=== PATIENT | female | born 1960 | race Caucasian/White ===

== ENCOUNTER 2017-08-31 13:57 | Emergency (ER) | payer BC | END 2017-08-31 14:02 | disposition left against medical advice (07) | LOC: ERS 13:57 | DX: Z53.21 Procedure and treatment not carried out due to patient leaving prior to being seen by health care provider (principal) ==

== ENCOUNTER 2019-01-09 05:35 | Outpatient (CLI) | payer OTHER ==
[2019-01-09 14:18] LABS: Bilirubin Negative (Negative); Blood, Urine Small (Negative); Clarity CLEAR (Clear); Glucose, Urine (Dipstick) Negative (Negative); Leukocyte Negative (Negative); Nitrite Negative (Negative); Protein, Urine (Dipstick) 100 mg/dL (Neg-Trace); pH, Urine 6.5 (5.0-9.0)
[2019-01-09 14:25] LABS: Bacteria/HPF None Seen HPF (None Seen); Hyaline Casts/LPF 0-3 HYALINE CAST LPF (0-3 Hyaline); Squamous Epithelial None Seen HPF (0-3); WBC/HPF None Seen HPF (0-3)
--- NOTE | 2019-01-09 15:04 | RAD ---
TWO VIEW CHEST: HISTORY: Preoperative evaluation. COMPARISON: 09/16/2016. FINDINGS: Lung crabtree are clear. Heart size upper normal but stable. Vascular markings normal. Osseous struc tures unremarkable. IMPRESSION: No acute finding or significant interval change. POS: JAMES
--- NOTE | 2019-01-09 20:31 | EKG ---
Test Reason : Blood Pressure : / mmHG Vent. Rate : 045 BPM Atrial Rate : 045 BPM P-R Int : 158 ms QRS Dur : 092 ms QT Int : 450 ms P-R-T Axes : 074 073 055 degrees QTc Int : 389 ms Marked sinus bradycardia Abnormal ECG When compared with ECG of 13-DEC-2016 15:56, Vent. rate has decreased BY [address] Hieu GRAVES ([id number]) on 01/09/2019 8:31:49 PM Referred By: HEIKE Confirmed By:DR. Hieu GRAVES
== END 2019-01-09 05:36 | disposition home or self-care (01) ==
LOC: LABBT 05:35
PROVIDERS: ATTEND Orthopaedic Surgery
DX: Z01.818 Encounter for other preprocedural examination (principal); M17.12 Unilateral primary osteoarthritis, left knee
CPT/HCPCS: 71046; 81001; 87081; 93005; 93010

== ENCOUNTER 2019-01-09 13:15 | Inpatient (IN) | payer OTHER ==
[2019-01-21] MEDS ORDERED: Tranexamic Acid 1,000 MG/10 ML VIAL ONE (07:49)
[2019-01-21] MEDS ORDERED: Sodium Chloride 0.9% 100 ML ONE (08:02)
[2019-01-21] MEDS ORDERED: Midazolam HCl 2 mg/2 ml Vial ONE (08:10)
[2019-01-21] MEDS ORDERED: Fentanyl 100 MCG/2 ML VIAL ONE ×3 (08:10→11:16)
[2019-01-21] MEDS ORDERED: Zolpidem Tartrate 5 MG TAB PO PRN ×2 (08:34→08:50)
[2019-01-21] MEDS ORDERED: Promethazine HCl 25 MG/ML VIAL IM PRN ×3 (08:34→11:13)
[2019-01-21] MEDS ORDERED: HYDROcodone/Acetaminophen 10/325 mg Tablet PO PRN (08:34)
[2019-01-21] MEDS ORDERED: Ropivacaine HCl/PF 250 ML in Premix Bag 1 BAG NERVE BLCK SCH (08:34)
[2019-01-21] MEDS ORDERED: traMADol HCl 50 MG TAB PO PRN (08:34)
[2019-01-21] MEDS ORDERED: Ondansetron PF 4 MG/2 ML Vial IVP PRN ×2 (08:34→08:50)
[2019-01-21] MEDS ORDERED: Acetaminophen 325 MG TAB PO PRN (08:50)
[2019-01-21] MEDS ORDERED: diphenhydrAMINE 25 MG CAP PO PRN (08:50)
[2019-01-21] MEDS ORDERED: ALPRAZolam 0.5 MG TAB PO PRN (08:52)
[2019-01-21] MEDS ORDERED: Ondansetron ODT 8 MG TAB PO PRN (08:52)
[2019-01-21] MEDS ORDERED: NALOXONE HCL SL SCH (09:00)
[2019-01-21] MEDS ORDERED: BUPRENORPHINE HCL SL SCH (09:00)
[2019-01-21] MEDS ORDERED: Ropivacaine 0.5% HCl/PF (150 MG/30 ML VIAL) ONE (11:08)
[2019-01-21] MEDS ORDERED: Ropivacaine 0.2% HCl/PF (40 MG/20 ML VIAL) ONE (11:08)
[2019-01-21] MEDS ORDERED: Ondansetron HCl/PF 4 MG/2 ML Vial IVP PRN (11:13)
[2019-01-21] MEDS ORDERED: Promethazine HCl 25 MG/ML VIAL SLOW IVP PRN (11:13)
--- NOTE | 2019-01-21 11:25 | OP ---
DATE OF PROCEDURE: 01/21/2019 PREOPERATIVE DIAGNOSIS: End-stage tricompartmental osteoarthritis, left knee. POSTOPERATIVE DIAGNOSIS: End-stage tricompartmental osteoarthritis, left knee. OPERATIVE PROCEDURE: Cemented cruciate sparing computer-assisted navigated left total knee arthroplasty. CLIP RIVETER: Chuck Tse PA-C ANESTHESIA: General via LMA augmented with indwelling adductor canal and a single shot anterior sciatic block on the left. COMPONENTS USED: [employer] triathlon size 4 cemented cruciate sparing femoral component with a size 3 cemented primary tibial base plate, a 9 mm polyethylene fixed bearing insert, and a 27 mm patella button. TOURNIQUET TIME: 54 minutes at 300 mmHg. FINDINGS: End-stage severe degenerative tricompartmental disease, [id number] arthrosis, periarticular osteophyte formation, large serous effusion. INPUT: 600 of crystalloid. OUTPUT: 250 mL of clear elsy urine. DRAINS: None. SPECIMENS: None. COMPLICATIONS: None. COUNTS: Correct. INDICATION FOR SURGERY: Jose Daniel is a 58-year-old white female, who has had progressive left knee pain and problem with standing and walking for the last 5 to 7 years. She has failed conservative management and elected to proceed with total knee arthroplasty as definitive treatment of her pain. PROCEDURE IN DETAIL: After informed consent was obtained in the preoperative holding area, the patient was taken to the operative suite where general anesthesia was induced. Once adequate level of general anesthesia was obtained, the patient was positioned and a well-padded tourniquet was placed around the left proximal thigh. The left lower extremity was then prepped and draped in the usual sterile fashion. Prior to exsanguination, a time-out was called and all members of the surgical team agreed upon site, surgeon, and patient. The extremity was then exsanguinated and the tourniquet was raised. A midline longitudinal incision was then made directly over the patella extending 2 fingerbreadths above the superior pole of the patella and 2 fingerbreadths inferior to the inferior patellar pole of the patella. Deeper subcutaneous layers were dissected sharply and local bleeding was controlled with Bovie electrocautery. A quad tendon longitudinal split was then made sharply and a median parapatellar arthrotomy was carried out both sharp and with Bovie electrocautery, carried down to 1 fingerbreadth medial to the tibial tubercle. The knee was then placed into flexion and the patella was everted nicely, and a copious fat pad ectomy was performed allowing for greater exposure of the tibia. The computer-assisted distal femoral fiducial was then placed and pinned firmly, and the distal femoral cutting guide was pinned firmly into place. The oscillating saw was then used to remove the appropriate amount of bone. The 4-in-1 cutting block was then placed on the distal femur and the oscillating saw was used to remove the appropriate amount of bone off the anterior, posterior, and chamfer cuts. After completion of bone cuts, the anterior cruciate ligament was resected sharply and the posterior cruciate ligament retractor was placed and the tibia was subluxed for better exposure. Partial meniscectomies were carried out, and the tibial computer-assisted fiducial was pinned, and the cutting guide was placed. Oscillating saw was then used to remove the bone, with Hohmann retractors used to take care and protect the collateral ligaments. After the tibial resection was performed, a laminar awning spreader was placed in between the freshened bone cuts. The knee placed at 90 degrees and further bilateral meniscectomies were carried out, and the curved osteotome and curettage were used to remove any excess bone spurs in the posterior compartment. The trial femoral component, tibial baseplate were placed with the appropriate polyethylene trial insert with an appropriate polyethylene spacer and patellar button. The knee was taken through full range of motion with flexion and extension from 0 to 90 degrees and patellar broach squarely in the trochlea without any squinting or subluxation noted. The knee was also stable to varus and valgus stressing at 0, 15, 45, and 90 degrees of flexion. The drawer was negative. All trial components were then removed and the keel punch was used to provide the appropriate defect in the tibia with a mallet. The freshened bone cuts were copiously irrigated with pulsatile lavage of about 1.5 L to remove all excess debris. The freshened bone cuts were then dried with suction and lap sponge. The knee was placed in flexion and retractors were placed to provide access to all bone cuts. Tobramycin-impregnated methyl methacrylate cement was then placed on the freshened bone cuts and implants which were malleted firmly into place. Curettage and Emden elevators were used to remove any excess bone cement. The knee was placed into full extension and the patellar button was placed under compression, and the cement was allowed to cure. Once completed, the components were again taken through full range of motion and copious irrigation of the knee was carried out with another liter of normal saline. All components were inspected fully with full range of motion and varus and valgus stressing. There was no laxity noted and full extension was observed clinically. Primary closure was accomplished with #2 interrupted Vicryl stitch of the arthrotomy defect. This was oversewn with a #2 running Quill barbed stitch. The subcutaneous layer was then closed with a running 0 barbed Monocryl stitch and skin closure accomplished with a running subcuticular 3-0 Monocryl barbed Quill stitch and augmented with cement on the skin. Tourniquet was lowered. Good spontaneous return of distal pulses was noted clinically and a sterile dressing was applied to the incision. The procedure was terminated without any complications. The patient was awakened in the operative suite and taken to the recovery room in stable condition. Job ID: [id number]
[2019-01-21] MEDS ORDERED: Ketorolac Tromethamine 30 MG/ML VIAL IVP SCH (12:00)
[2019-01-21] MEDS ORDERED: PROPOFOL 200 MG/20 ML VIAL ONE (12:12)
[2019-01-21] MEDS ORDERED: Dexamethasone 20 MG/5 ML VIAL ONE (12:12)
[2019-01-21] MEDS ORDERED: Ondansetron PF 4 MG/2 ML Vial ONE (12:12)
[2019-01-21] MEDS ORDERED: Lidocaine 1% PF 5 ML VIAL ONE (12:12)
--- NOTE | 2019-01-21 12:32 | RAD ---
LEFT KNEE TWO VIEWS: HISTORY: Total knee arthroplasty, postop. FINDINGS: The recent postop changes of total knee arthroplasty in good position and alignment. Soft tissue air is present. POS: OFF
[2019-01-21] MEDS: Aspirin 81 mg Enteric Coated Tablet PO SCH ×2 (15:07→20:03)
[2019-01-21] MEDS: Ketorolac Tromethamine 30 MG/ML VIAL IVP SCH ×2 (15:15→20:03)
--- NOTE | 2019-01-21 16:22 | CON ---
DATE OF CONSULTATION: 01/21/2019 CHIEF COMPLAINT: Medical management. HISTORY OF PRESENT ILLNESS: Ms. Galloway is a pleasant 58-year-old lady, who was seen at [facility] on January 21, 2019, for management of medical comorbidities. She underwent left total knee arthroplasty today. She denies any chest pain or shortness of breath. She denies any fevers or chills. She reports left knee pain that is improving with pain medications. She denies any fevers. She denies any headaches. REVIEW OF SYSTEMS: All other systems reviewed and found to be negative. PAST MEDICAL HISTORY: Chronic obstructive pulmonary disease and hypertension. PSYCHIATRIC HISTORY: Anxiety and depression. PAST SURGICAL HISTORY: Right arm surgery, left femur replacement, and right total knee replacement. SOCIAL HISTORY: The patient smokes half a pack of cigarettes a day. She denies alcohol use or recreational drug use. FAMILY HISTORY: No family history of premature coronary artery disease. ALLERGIES: SOMA. CURRENT MEDICATIONS: 1. Aspirin/caffeine one packet every 6 hours as needed. 2. Zofran 8 mg every 6 hours as needed. 3. Xanax 0.5 mg daily as needed. 4. Suboxone one film sublingually two times a day. 5. Escitalopram 20 mg daily. 6. Lisinopril 40 mg daily. 7. Ferrous sulfate 325 mg 2 times a day. 8. Protonix 40 mg daily. PHYSICAL EXAMINATION: GENERAL: On examination, Ms. Galloway is awake and alert, not in acute distress. VITAL SIGNS: Blood pressure is 162/83, pulse is 51, respiratory rate 16, and oxygen saturation 96% on room air. She is afebrile. EYES: No scleral icterus. No conjunctival pallor. ENT: Moist mucosal membranes. No oropharyngeal erythema or exudates. NECK: Supple, nontender, trachea is midline. RESPIRATORY: Accessory muscles of breathing are not active. Chest wall movements are symmetric bilaterally. LUNGS: Clear to auscultation without wheeze, rhonchi, or crepitations. CARDIOVASCULAR: S1 and S2 are heard, regular. Peripheral pulses palpable. No carotid bruit. No pericardial rub. ABDOMEN: Soft, nontender, bowel sounds heard. NEUROLOGIC: Cranial nerves II through XII are intact. MUSCULOSKELETAL: Status post left knee surgery. The patient is able to move all four extremities. SKIN: No rashes or subcutaneous nodules. LYMPHATIC: No cervical lymphadenopathy. PSYCHIATRIC: Normal mood. Normal affect. The patient is oriented to person, place, and time. LABORATORY DATA: Ms. Galloway's labs and investigations were reviewed. On January 14, she had leukopenia with 3900 white cells, normal hemoglobin, decreased platelet count of 124,000, normal sodium, elevated potassium of 5.2, normal creatinine, and INR of 1.1. Urinalysis was negative for nitrite and leukocyte esterase on January 09, 2019. ASSESSMENT AND PLAN: Ms. Galloway is a pleasant 58-year-old lady, who was seen at [facility] for medical management following left total knee arthroplasty. Her problem list includes: 1. Hypertension: We will resume lisinopril. We will monitor vital signs and titrate antihypertensives as needed. We will also add p.r.n. hydralazine for blood pressure spikes. 2. Chronic obstructive pulmonary disease: Appears to be stable. 3. Depression: Mild, stable, we will continue Lexapro. 4. Check hemogram in a.m. to look for any abnormalities, given the recent abnormalities on CBC of January 14, 2019. Many thanks for allowing me to participate in your patient's care. Please feel free to contact me with any questions or concerns. LEVEL OF RISK: Moderate. LEVEL OF COMPLEXITY: Moderate. Job ID: [id number]
[2019-01-21] MEDS: CEFAZOLIN 2 GM in Premix Bag 1 BAG IVPB SCH ×2 (16:31→23:36)
[2019-01-21] MEDS ORDERED: Ferrous Sulfate 325 MG TAB PO SCH (17:00)
[2019-01-21] MEDS: Lisinopril 20 MG TAB PO SCH (18:19)
[2019-01-21] MEDS: Sodium Chloride 0.9% 1,000 ML IV SCH ×2 (18:19→20:04)
[2019-01-21] MEDS: Escitalopram Oxalate 20 mg Tablet PO SCH (18:19)
[2019-01-21] MEDS: traMADol HCl 50 MG TAB PO PRN (20:04)
[2019-01-21] MEDS: hydrALAZINE 20 MG/ML VIAL SLOW IVP PRN (22:16)
[2019-01-22] MEDS: HYDROcodone/Acetaminophen 10/325 mg Tablet PO PRN ×5 (00:35→17:18)
[2019-01-22] MEDS: Ketorolac Tromethamine 30 MG/ML VIAL IVP SCH ×4 (02:58→20:18)
[2019-01-22] MEDS: traMADol HCl 50 MG TAB PO PRN ×2 (03:49→10:40)
[2019-01-22] MEDS: Sodium Chloride 0.9% 1,000 ML IV SCH ×2 (04:44→16:00)
[2019-01-22] MEDS: hydrALAZINE 20 MG/ML VIAL SLOW IVP PRN ×3 (04:48→23:44)
[2019-01-22 06:06] LABS: Hemoglobin 12.5 g/dL (12.0-16.0); Mean Corpuscular HGB CONC 32.5 g/dL (32.0-36.0); Mean Corpuscular Hemoglobin 31.7 pg (27.0-31.0); Mean Corpuscular Volume 97.5 fL (78.0-98.0); Mean Platelet Volume 8.9 fL (7.4-10.4); Platelet Count 110 thou/uL (130-400); RBC Distribution Width 12.9 % (11.5-14.5); Red Blood Cell (RBC) Count 3.94 mill/uL (4.20-5.40); White Blood Cell (WBC) Count 4.4 thou/uL (4.8-10.8)
[2019-01-22] MEDS: Aspirin 81 mg Enteric Coated Tablet PO SCH ×2 (07:44→20:18)
[2019-01-22] MEDS: Escitalopram Oxalate 20 mg Tablet PO SCH (07:44)
[2019-01-22] MEDS: Senokot S 8.6-50 MG TAB PO SCH ×2 (07:45→20:18)
[2019-01-22] MEDS: Multivitamin W/ Minerals 1 TAB PO SCH (07:46)
[2019-01-22] MEDS: Ferrous Gluconate 324 MG TAB PO SCH ×2 (07:46→20:18)
[2019-01-22] MEDS: Lisinopril 20 MG TAB PO SCH (07:46)
[2019-01-22] MEDS: Amlodipine 5 MG TAB PO SCH (09:09)
[2019-01-22 11:46] VITALS: BMI 21.9
--- NOTE | 2019-01-22 12:43 | PRG ---
DATE OF SERVICE: 01/22/2019 SUBJECTIVE: Jose Daniel is a 58-year-old white female who is postop day one from left total knee arthroplasty. She is doing very well. She does have some complaints about discomfort overnight. We will be addressing this with her block. She may require a bolus. OBJECTIVE: VITAL SIGNS: Temperature 98.5, pulse 52, respiratory rate 16, blood pressure 185/90. GENERAL: She is alert and oriented to person, time, and situation, grossly nonfocal. No apparent distress. EXTREMITIES: There is no strikethrough of the incision and she is neurovascular intact in both lower extremities. LABORATORY DATA: Hemoglobin and hematocrit . IMPRESSION: A 58-year-old female, postoperative day one, left total knee arthroplasty, doing well. PLAN: Continue current care. Recheck tomorrow. Job ID: [id number]
[2019-01-22] MEDS: Fentanyl 100 MCG/2 ML VIAL IV PRN ×2 (13:50→16:50)
[2019-01-22] MEDS ORDERED: Promethazine HCl 25 MG/ML VIAL IM PRN (17:32)
[2019-01-22] MEDS ORDERED: diphenhydrAMINE 25 MG CAP PO PRN (17:32)
[2019-01-22] MEDS ORDERED: Zolpidem Tartrate 5 MG TAB PO PRN (17:32)
[2019-01-22] MEDS ORDERED: Ondansetron PF 4 MG/2 ML Vial IVP PRN (17:32)
[2019-01-22] MEDS ORDERED: Naloxone HCl 0.4 mg/ml Vial IV PRN (17:32)
[2019-01-22] MEDS ORDERED: diphenhydrAMINE 50 MG/ML VIAL IM PRN (17:32)
[2019-01-22] MEDS ORDERED: Ketorolac Tromethamine 30 MG/ML VIAL IVP PRN (17:32)
[2019-01-22] MEDS ORDERED: diphenhydrAMINE 50 MG/ML VIAL IVP PRN (17:32)
[2019-01-22] MEDS ORDERED: Communication Order-Pharmacy FS SCH (17:45)
[2019-01-22] MEDS ORDERED: cloNIDine 0.1 MG TAB PO SCH (18:15)
[2019-01-22] MEDS: fentaNYL Citrate/PF 2,000 MCG in Sodium Chloride 0.9% 60 ML IV PRN (18:17)
--- NOTE | 2019-01-22 18:42 | PDOC.PN ---
- Subjective Encounter Start Date: 01/22/19 Encounter Start Time: 08:00 Pt seen for followup re: hypertension. feels well, c/o on and off left knee pain. - Objective MAR Reviewed: Yes Vital Signs & Weight: Vital Signs (12 hours) Temp Pulse Resp BP BP Pulse Ox 01/22/19 18:16 193/84 H 01/22/19 16:08 97.5 F L 59 L 16 177/82 H 99 01/22/19 14:37 177/82 H 01/22/19 13:31 54 L 186/88 H 01/22/19 12:49 98.6 F 54 L 16 175/94 H 97 01/22/19 09:09 52 L 185/90 H 01/22/19 08:00 98 01/22/19 07:46 185/90 H 01/22/19 07:23 98.5 F 59 L 16 180/91 H 98 Weight Admit Weight 128 lb Weight 128 lb I&O: 01/21/19 01/22/19 01/23/19 06:59 06:59 06:59 Intake Total 2310 Output Total 550 Balance 1760 Result Diagrams: 01/22/19 05:15 Additional Labs: Labs reviewed by me Phys Exam - Physical Examination Constitutional: NAD HEENT: moist MMs Neck: supple Respiratory: clear to auscultation bilateral Cardiovascular: RRR Gastrointestinal: soft s/p L knee surgery Neurological: moves all 4 limbs Psychiatric: normal affect Dx/Plan (1) HTN (hypertension) Code(s): I10 - ESSENTIAL (PRIMARY) HYPERTENSION Status: Chronic (2) COPD (chronic obstructive pulmonary disease) Status: Chronic Comment: stable (3) Depression Code(s): F32.9 - MAJOR DEPRESSIVE DISORDER, SINGLE EPISODE, UNSPECIFIED Status : Chronic Comment: mild, stable (4) Tobacco abuse Code(s): Z72.0 - TOBACCO USE Status: Chronic Comment: start nicotine patch - Plan * . Review of Systems - Review of Systems Respiratory: negative: Cough, Shortness of Breath, SOB with Excertion, Pleuritic Pain, Wheezing Cardiovascular: negative: chest pain, palpitations, orthopnea, paroxysmal nocturnal dyspnea, edema, light headedness Musculoskeletal: Other (left knee pain) - Medications/Allergies Allergies/Adverse Reactions: Allergies Allergy/AdvReac Type Severity Reaction Status Date / Time carisoprodol [From Soma] Allergy Verified 01/09/19 13:07 Medications: Current Medications Acetaminophen (Tylenol) 650 mg PO Q4H PRN PRN Reason: Headache/Fever Amlodipine Besylate (Norvasc) 5 mg PO DAILY [facility] Last Admin: 01/22/19 09:09 Dose: 5 mg Aspirin (Ecotrin) 81 mg PO BID [facility] Last Admin: 01/22/19 07:44 Dose: 81 mg Clonidine (Catapres) 0.1 mg PO NOW [facility] Stop: 01/22/19 20:15 Last Admin: 01/22/19 18:16 Dose: 0.1 mg Diphenhydramine HCl (Benadryl) 25 mg IVP Q3H PRN PRN Reason: Itching Diphenhydramine HCl (Benadryl) 25 mg PO Q3H PRN PRN Reason: Itching Diphenhydramine HCl (Benadryl) 25 mg IM Q3H PRN PRN Reason: Itching Escitalopram Oxalate (Lexapro) 20 mg PO DAILY [facility] Last Admin: 01/22/19 07:44 Dose: 20 mg Ferrous Gluconate (Fergon) 324 mg PO BID [facility] Last Admin: 01/22/19 07:46 Dose: 324 mg Hydralazine HCl (Apresoline) 10 mg SLOW IVP Q6H PRN PRN Reason: SBP Greater Than 170 Last Admin: 01/22/19 13:31 Dose: 10 mg Ropivacaine 250 ml/ Device 250 mls @ 0 mls/hr NERVE BLCK INF [facility] Last Admin: 01/22/19 14:29 Dose: 250 mls Sodium Chloride (Normal Saline 0.9%) 1,000 mls @ 100 mls/hr IV .Q10H [facility] Last Admin: 01/22/19 16:00 Dose: Not Given Fentanyl Citrate 2,000 mcg/ (Sodium Chloride) 100 mls @ 0 mls/hr IV INF PRN PRN Reason: Pain Last Admin: 01/22/19 18:17 Dose: 100 mls Iron/Minerals/Multivitamins (Theragran M) 1 tab PO DAILY [facility] Last Admin: 01/22/19 07:46 Dose: 1 tab Ketorolac Tromethamine (Toradol) 30 mg IVP 0300,0900,1500,2100 [facility] Stop: 01/23/19 09:01 Last Admin: 01/22/19 15:48 Dose: 30 mg Ketorolac Tromethamine (Toradol) 30 mg IVP Q6H PRN PRN Reason: Moderate Pain (4-6) Stop: 01/25/19 17:33 Lisinopril (Zestril) 40 mg PO DAILY [facility] Last Admin: 01/22/19 07:46 Dose: 40 mg Naloxone HCl (Narcan) 0.2 mg IV Q5MIN PRN PRN Reason: Opiate Reversal Ondansetron HCl (Zofran Odt) 8 mg PO Q6HR PRN PRN Reason: Nausea/Vomiting Ondansetron HCl (Zofran) 4 mg IVP Q6H PRN PRN Reason: Nausea/Vomiting Pantoprazole Sodium (Protonix) 40 mg PO DAILY [facility] Last Admin: 01/22/19 07:44 Dose: 40 mg Promethazine HCl (Phenergan) 12.5 mg IM Q4H PRN PRN Reason: Nausea/Vomiting Senna/Docusate Sodium (Senokot S) 2 tab PO BID [facility] Last Admin: 01/22/19 07:45 Dose: 2 tab Sodium Chloride (Flush - Normal Saline) 10 ml IVF PRN PRN PRN Reason: Saline Flush Last Admin: 01/22/19 15:50 Dose: 10 ml Zolpidem Tartrate (Ambien) 5 mg PO HSPRN PRN PRN Reason: Insomnia
[2019-01-22] MEDS: Nicotine 14 MG PATCH TD SCH (20:18)
[2019-01-23] MEDS ORDERED: hydrALAZINE 20 MG/ML VIAL SLOW IVP SCH (01:00)
[2019-01-23] MEDS: Sodium Chloride 0.9% 1,000 ML IV SCH ×4 (01:13→23:44)
[2019-01-23] MEDS: Ketorolac Tromethamine 30 MG/ML VIAL IVP SCH ×2 (02:55→09:48)
[2019-01-23 04:25] LABS: Hemoglobin 13.1 g/dL (12.0-16.0); Mean Corpuscular Hemoglobin 32.3 pg (27.0-31.0); Mean Corpuscular Volume 97.9 fL (78.0-98.0); Mean Platelet Volume 9.5 fL (7.4-10.4); Platelet Count 101 thou/uL (130-400); Red Blood Cell (RBC) Count 4.05 mill/uL (4.20-5.40); White Blood Cell (WBC) Count 4.9 thou/uL (4.8-10.8)
[2019-01-23] MEDS: cloNIDine 0.1 MG TAB PO PRN (05:01)
[2019-01-23] MEDS ORDERED: Morphine 4 MG/ML VIAL SLOW IVP SCH (05:30)
[2019-01-23] MEDS ORDERED: Nicotine 21 MG PATCH TD SCH (09:00)
[2019-01-23] MEDS: Senokot S 8.6-50 MG TAB PO SCH ×2 (09:49→20:16)
[2019-01-23] MEDS: Aspirin 81 mg Enteric Coated Tablet PO SCH ×2 (09:49→20:19)
[2019-01-23] MEDS: Escitalopram Oxalate 20 mg Tablet PO SCH (09:49)
[2019-01-23] MEDS: Multivitamin W/ Minerals 1 TAB PO SCH (09:50)
[2019-01-23] MEDS: Lisinopril 20 MG TAB PO SCH (09:50)
[2019-01-23] MEDS: Amlodipine 5 MG TAB PO SCH (09:51)
--- NOTE | 2019-01-23 09:51 | PRG ---
DATE OF SERVICE: 01/23/2019 SUBJECTIVE: Jose Daniel is a 58-year-old white female, postop day #2, left total knee arthroplasty. Unfortunately, she had a PLANT MANAGER placed yesterday evening around 6:00 p.m. for her pain control. Today, she feels a little better. She is able to get up and move with better pain control. OBJECTIVE: VITAL SIGNS: Temperature 97.9, pulse 60, respiratory rate 16 and nonlabored, and blood pressure is 143/86. GENERAL: She is alert and oriented to person, place, time, and situation. NEUROLOGIC: Grossly nonfocal. Incision is clean, closed without any erythema. There is no strikethrough. She is neurovascularly intact in the involved extremity. LABORATORY DATA: Hemoglobin and hematocrit of 13.1 and 39.6. IMPRESSION: A 58-year-old female, postop day #2, left total knee arthroplasty. Pain syndrome, but controlled currently. PLAN: Continue current care. We will probably discontinue the PLANT MANAGER tomorrow morning. Plan for home discharge. Job ID: [id number]
[2019-01-23] MEDS: Ferrous Gluconate 324 MG TAB PO SCH ×2 (09:52→20:19)
[2019-01-23] MEDS: Acetaminophen 500 MG TAB PO SCH ×3 (10:38→23:47)
--- NOTE | 2019-01-23 15:41 | PDOC.PN ---
- Subjective Encounter Start Date: 01/23/19 Encounter Start Time: 08:00 Pt seen for followup re: hypertension. c/o left knee pain. No fevers. - Objective MAR Reviewed: Yes Vital Signs & Weight: Vital Signs (12 hours) Temp Pulse Resp BP BP BP Pulse Ox 01/23/19 11:41 98.1 F 52 L 16 163/88 H 96 01/23/19 09:51 60 143/76 H 01/23/19 09:50 143/86 H 01/23/19 07:32 97.9 F 60 16 143/86 H 100 01/23/19 07:27 96 01/23/19 06:33 66 163/79 H 01/23/19 05:01 174/84 H 01/23/19 04:00 98.5 F 61 16 190/93 H 96 Weight Admit Weight 128 lb Weight 128 lb I&O: 01/22/19 01/23/19 01/24/19 06:59 06:59 06:59 Intake Total 2310 1035 930 Output Total 550 Balance 1760 1035 930 Result Diagrams: 01/23/19 04:09 Additional Labs: labs reviewed by me Phys Exam - Physical Examination Constitutional: NAD HEENT: moist MMs Neck: supple Respiratory: clear to auscultation bilateral Cardiovascular: RRR Gastrointestinal: soft L knee s/p surgery Neurological: moves all 4 limbs Psychiatric: normal affect Dx/Plan (1) HTN (hypertension) Code(s): I10 - ESSENTIAL (PRIMARY) HYPERTENSION Status: Chronic Comment: BP high at times, ? secondary to pain (2) COPD (chronic obstructive pulmonary disease) Status: Chronic Comment: stable (3) Depression Code(s): F32.9 - MAJOR DEPRESSIVE DISORDER, SINGLE EPISODE, UNSPECIFIED Status : Chronic Comment: stable (4) Tobacco abuse Code(s): Z72.0 - TOBACCO USE Status: Chronic Comment: on nicotine patch - Plan * . Review of Systems - Review of Systems Cardiovascular: negative: chest pain, palpitations, orthopnea, paroxysmal nocturnal dyspnea, edema, light headedness Gastrointestinal: negative: Nausea, Vomiting, Abdominal Pain, Diarrhea, Constipation, Melena, Hematochezia Musculoskeletal: Other (knee pain) - Medications/Allergies Allergies/Adverse Reactions: Allergies Allergy/AdvReac Type Severity Reaction Status Date / Time carisoprodol [From Soma] Allergy Verified 01/09/19 13:07 Medications: Current Medications Acetaminophen (Tylenol) 1,000 mg PO Q6H [facility] Stop: 01/24/19 10:01 Last Admin: 01/23/19 10:38 Dose: 1,000 mg Acetaminophen (Tylenol) 650 mg PO Q4H PRN PRN Reason: Headache/Fever Amlodipine Besylate (Norvasc) 5 mg PO DAILY [facility] Last Admin: 01/23/19 09:51 Dose: 5 mg Aspirin (Ecotrin) 81 mg PO BID [facility] Last Admin: 01/23/19 09:49 Dose: 81 mg Clonidine (Catapres) 0.1 mg PO Q4H PRN PRN Reason: BP> 170/100 Last Admin: 01/23/19 05:01 Dose: 0.1 mg Diphenhydramine HCl (Benadryl) 25 mg IVP Q3H PRN PRN Reason: Itching Diphenhydramine HCl (Benadryl) 25 mg PO Q3H PRN PRN Reason: Itching Diphenhydramine HCl (Benadryl) 25 mg IM Q3H PRN PRN Reason: Itching Escitalopram Oxalate (Lexapro) 20 mg PO DAILY [facility] Last Admin: 01/23/19 09:49 Dose: 20 mg Ferrous Gluconate (Fergon) 324 mg PO BID [facility] Last Admin: 01/23/19 09:52 Dose: Not Given Hydralazine HCl (Apresoline) 10 mg SLOW IVP Q6H PRN PRN Reason: SBP Greater Than 170 Last Admin: 01/22/19 23:44 Dose: 10 mg Ropivacaine 250 ml/ Device 250 mls @ 0 mls/hr NERVE BLCK INF [facility] Last Admin: 01/22/19 14:29 Dose: 250 mls Sodium Chloride (Normal Saline 0.9%) 1,000 mls @ 100 mls/hr IV .Q10H [facility] Last Admin: 01/23/19 01:13 Dose: Not Given Fentanyl Citrate 2,000 mcg/ (Sodium Chloride) 100 mls @ 0 mls/hr IV INF PRN PRN Reason: Pain Last Admin: 01/22/19 18:17 Dose: 100 mls Iron/Minerals/Multivitamins (Theragran M) 1 tab PO DAILY [facility] Last Admin: 01/23/19 09:50 Dose: 1 tab Ketorolac Tromethamine (Toradol) 30 mg IVP Q6H PRN PRN Reason: Moderate Pain (4-6) Stop: 01/25/19 17:33 Lisinopril (Zestril) 40 mg PO DAILY [facility] Last Admin: 01/23/19 09:50 Dose: 40 mg Naloxone HCl (Narcan) 0.2 mg IV Q5MIN PRN PRN Reason: Opiate Reversal Nicotine (Nicoderm Patch) 14 mg TD Q24HR [facility] Last Admin: 01/22/19 20:18 Dose: 14 mg Ondansetron HCl (Zofran Odt) 8 mg PO Q6HR PRN PRN Reason: Nausea/Vomiting Ondansetron HCl (Zofran) 4 mg IVP Q6H PRN PRN Reason: Nausea/Vomiting Pantoprazole Sodium (Protonix) 40 mg PO DAILY [facility] Last Admin: 01/23/19 09:50 Dose: 40 mg Promethazine HCl (Phenergan) 12.5 mg IM Q4H PRN PRN Reason: Nausea/Vomiting Senna/Docusate Sodium (Senokot S) 2 tab PO BID [facility] Last Admin: 01/23/19 09:49 Dose: 2 tab Sodium Chloride (Flush - Normal Saline) 10 ml IVF PRN PRN PRN Reason: Saline Flush Last Admin: 01/22/19 15:50 Dose: 10 ml Zolpidem Tartrate (Ambien) 5 mg PO HSPRN PRN PRN Reason: Insomnia
[2019-01-23] MEDS: fentaNYL Citrate/PF 2,000 MCG in Sodium Chloride 0.9% 60 ML IV PRN (16:54)
[2019-01-23] MEDS ORDERED: Bupivacaine/Epinephrine 0.5% 10 ML VIAL FS SCH (17:30)
[2019-01-23] MEDS ORDERED: Acetaminophen 500 MG TAB PO SCH (18:00)
[2019-01-23] MEDS: Nicotine 14 MG PATCH TD SCH (20:19)
[2019-01-24] MEDS: cloNIDine 0.1 MG TAB PO PRN ×3 (04:00→22:05)
[2019-01-24] MEDS: Acetaminophen 500 MG TAB PO SCH ×3 (05:29→15:07)
[2019-01-24] MEDS ORDERED: HYDROcodone/Acetaminophen 10/325 mg Tablet PO PRN (09:10)
[2019-01-24] MEDS: HYDROcodone/Acetaminophen 10/325 mg Tablet PO PRN ×4 (09:17→21:56)
[2019-01-24] MEDS: Multivitamin W/ Minerals 1 TAB PO SCH (09:18)
[2019-01-24] MEDS: Senokot S 8.6-50 MG TAB PO SCH ×2 (09:19→21:55)
[2019-01-24] MEDS: Lisinopril 20 MG TAB PO SCH (09:19)
[2019-01-24] MEDS: Aspirin 81 mg Enteric Coated Tablet PO SCH ×2 (09:19→21:55)
[2019-01-24] MEDS: Ferrous Gluconate 324 MG TAB PO SCH ×2 (09:19→21:55)
[2019-01-24] MEDS: Amlodipine 5 MG TAB PO SCH (09:19)
[2019-01-24] MEDS: Escitalopram Oxalate 20 mg Tablet PO SCH (09:20)
[2019-01-24] MEDS: Sodium Chloride 0.9% 1,000 ML IV SCH ×2 (09:23→18:22)
[2019-01-24] MEDS ORDERED: ALPRAZolam 0.5 MG TAB PO SCH (14:15)
[2019-01-24] MEDS: traMADol HCl 50 MG TAB PO PRN ×2 (16:58→23:30)
[2019-01-24] MEDS: Cyclobenzaprine 10 MG TAB PO PRN (18:18)
[2019-01-24] MEDS: Nicotine 14 MG PATCH TD SCH (18:19)
[2019-01-24] MEDS ORDERED: Morphine 2 MG/ML SYRINGE SLOW IVP PRN (23:20)
[2019-01-24] MEDS: Morphine 2 MG/ML SYRINGE IM PRN (23:24)
[2019-01-24] MEDS ORDERED: Acetaminophen 325 MG TAB PO PRN (23:59)
[2019-01-25] MEDS: HYDROcodone/Acetaminophen 10/325 mg Tablet PO PRN ×4 (02:09→13:27)
[2019-01-25] MEDS: Morphine 2 MG/ML SYRINGE IM PRN (03:28)
[2019-01-25] MEDS: Sodium Chloride 0.9% 1,000 ML IV SCH (05:45)
[2019-01-25] MEDS: cloNIDine 0.1 MG TAB PO PRN ×2 (05:46→15:15)
--- NOTE | 2019-01-25 08:48 | PRG ---
DATE OF SERVICE: 01/24/2019 SUBJECTIVE: Jose Daniel is a 58-year-old female, who is postop day 3 from a left total knee arthroplasty. She has had some pain flares requiring parental pain medication and she has recently been struggling with pain. Baseline is around 6 or 7. OBJECTIVE: VITAL SIGNS: She is afebrile. NEUROLOGIC: She is alert, oriented to person, place, time, and situation, grossly nonfocal, responsive, and appropriate with examiner. She appears anxious. Her incision is clean. No strike through. There is almost no bruising on the incision in the nicolette-incisional area and she is neurovascularly intact in the extremity. IMPRESSION: 1. A 58-year-old female, postop day 3, left total knee arthroplasty. 2. Dysesthesias and pain flare secondary to surgery. PLAN: Continue care. Parental pain medicines as needed, but this will delay discharge. Job ID: [id number]
[2019-01-25] MEDS: Escitalopram Oxalate 20 mg Tablet PO SCH (09:25)
[2019-01-25] MEDS: Lisinopril 20 MG TAB PO SCH (09:26)
[2019-01-25] MEDS: Multivitamin W/ Minerals 1 TAB PO SCH (09:26)
[2019-01-25] MEDS: Ferrous Gluconate 324 MG TAB PO SCH (09:26)
[2019-01-25] MEDS: Amlodipine 5 MG TAB PO SCH (09:26)
[2019-01-25] MEDS: Aspirin 81 mg Enteric Coated Tablet PO SCH (09:27)
[2019-01-25] MEDS: Senokot S 8.6-50 MG TAB PO SCH (09:28)
[2019-01-25 12:05] VITALS: TEMP 97.7
[2019-01-25] MEDS: Cyclobenzaprine 10 MG TAB PO PRN (12:09)
[2019-01-25] MEDS: traMADol HCl 50 MG TAB PO PRN (12:09)
[2019-01-25 15:16] VITALS: BP 172/84
== END 2019-01-25 16:10 | disposition home or self-care (01) | DRG 470 ==
LOC: SURG A 01-21 06:57 → SJJU 01-21 13:06
PROVIDERS: ADMIT Orthopaedic Surgery; ATTEND Orthopaedic Surgery
PROC: 0SRD0JZ Replacement of Left Knee Joint with Synthetic Substitute, Open Approach (ICD-10-PCS; principal; 2019-01-21)
DX: M17.12 Unilateral primary osteoarthritis, left knee (principal); F17.210 Nicotine dependence, cigarettes, uncomplicated; J44.9 Chronic obstructive pulmonary disease, unspecified; I10 Essential (primary) hypertension; F41.9 Anxiety disorder, unspecified; F32.9 Major depressive disorder, single episode, unspecified; R20.8 Other disturbances of skin sensation; Z79.82 Long term (current) use of aspirin; Z79.899 Other long term (current) drug therapy
CPT/HCPCS: 36415; 85027; 94640; C1713; C1776; J0360; J1100; J1885; J2001; J2250; J2270; J2405; J2704; J2795; J3010; J3370; J7050; J7620

== ENCOUNTER 2019-01-14 14:39 | Outpatient (CLI) | payer OTHER ==
[2019-01-14 15:15] LABS: #Eosinphils 0.1 thou/uL (0.0-0.7); #Lymphocytes 1.1 thou/uL (1.20-3.40); #Monocytes 0.3 thou/uL (0.11-0.59); #Neutrophils 2.4 thou/uL (1.40-6.50); %Basophils 0.7 % (0.0-1.0); %Eosinophils 2.9 % (0.0-10.0); %Lymphocytes 26.8 % (21.0-51.0); %Monocytes 7.6 % (0.0-10.0); Hemoglobin 13.4 g/dL (12.0-16.0); Mean Corpuscular HGB CONC 32.8 g/dL (32.0-36.0); Mean Corpuscular Hemoglobin 31.3 pg (27.0-31.0); Mean Corpuscular Volume 95.4 fL (78.0-98.0); Mean Platelet Volume 8.8 fL (7.4-10.4); Platelet Count 124 thou/uL (130-400); White Blood Cell (WBC) Count 3.9 thou/uL (4.8-10.8)
[2019-01-14 15:22] LABS: INR-International Normal Ratio 1.1; PTT 39.7 SEC (22.9-36.1); Prothrombin Time 14.7 SEC (12.0-14.7)
[2019-01-14 15:39] LABS: Anion Gap 16 mmol/L (10-20); BUN (Urea Nitrogen) 33 mg/dL (9.8-20.1); Calc. Creatinine Clearance 0 mL/min (70-130); Calcium 9.3 mg/dL (7.8-10.44); Carbon Dioxide 21 mmol/L (22-29); Chloride 108 mmol/L (98-107); Estimated GFR-MDRD 60; Glucose 88 mg/dL (70-105); Potassium 5.2 mmol/L (3.5-5.1); Sodium 140 mmol/L (136-145)
== END 2019-01-14 14:40 | disposition home or self-care (01) ==
LOC: LABBT 14:39
PROVIDERS: ATTEND Orthopaedic Surgery
DX: Z01.812 Encounter for preprocedural laboratory examination (principal); M17.12 Unilateral primary osteoarthritis, left knee
CPT/HCPCS: 80048; 85025; 85610; 85730; 86850; 86900; 86901

== ENCOUNTER 2019-01-29 18:40 | Observation (INO) | payer OTHER ==
[2019-01-29 19:08] LABS: #Basophils 0.1 thou/uL (0.0-0.2); #Eosinphils 0.2 thou/uL (0.0-0.7); #Lymphocytes 1.1 thou/uL (1.20-3.40); #Monocytes 0.4 thou/uL (0.11-0.59); #Neutrophils 1.8 thou/uL (1.40-6.50); %Basophils 1.5 % (0.0-1.0); %Eosinophils 5.5 % (0.0-10.0); %Lymphocytes 31.2 % (21.0-51.0); %Neutrophils 50.8 % (42.0-75.0); Hemoglobin 10.8 g/dL (12.0-16.0); Mean Corpuscular HGB CONC 33.1 g/dL (32.0-36.0); Mean Corpuscular Hemoglobin 32.7 pg (27.0-31.0); Mean Corpuscular Volume 98.9 fL (78.0-98.0); Mean Platelet Volume 8.6 fL (7.4-10.4); Platelet Count 110 thou/uL (130-400); RBC Distribution Width 13.5 % (11.5-14.5); White Blood Cell (WBC) Count 3.6 thou/uL (4.8-10.8)
--- NOTE | 2019-01-29 19:15 | RAD ---
CHEST TWO VIEWS: 01/29/19 HISTORY: Dyspnea. COMPARISON: 01/09/19. FINDINGS: Enlarged cardiac silhouette. Prominent pulmonary vessels. Patchy interstitial opacities, without cons olidation or mass. Lungs are hyperinflated. No pleural effusion or pneumothorax. IMPRESSION: Congestive heart failure. POS: PPP
[2019-01-29 19:27] LABS: ALT (SGPT) 56 U/L (8-55); AST (SGOT) 74 U/L (5-34); Albumin 3.2 g/dL (3.5-5.0); Alkaline Phosphatase 206 U/L (40-150); Anion Gap 11 mmol/L (10-20); BUN (Urea Nitrogen) 17 mg/dL (9.8-20.1); Bilirubin, Total 0.4 mg/dL (0.2-1.2); Calc. Creatinine Clearance 0 mL/min (70-130); Calcium 8.9 mg/dL (7.8-10.44); Carbon Dioxide 28 mmol/L (22-29); Chloride 107 mmol/L (98-107); Estimated GFR-MDRD 50; Globulin 3.2 g/dL (2.4-3.5); Glucose 78 mg/dL (70-105); Potassium 5.7 mmol/L (3.5-5.1); Protein, Total 6.4 g/dL (6.0-8.3); Sodium 140 mmol/L (136-145)
[2019-01-29] MEDS ORDERED: Acetaminophen 500 MG TAB ONE (21:46)
[2019-01-29 22:10] LABS: Troponin I 0.011 ng/mL (< 0.028)
[2019-01-29] MEDS ORDERED: Ondansetron ODT 4 MG TAB SL PRN (23:39)
[2019-01-29] MEDS ORDERED: Acetaminophen 325 MG TAB PO PRN ×2 (23:39)
[2019-01-29] MEDS ORDERED: Ondansetron PF 4 MG/2 ML Vial IVP PRN (23:39)
[2019-01-30 00:12] VITALS: BMI 22.8
[2019-01-30] MEDS ORDERED: Acetaminophen 650 MG Suppository PR PRN (01:01)
[2019-01-30] MEDS ORDERED: CAFFEINE PO PRN ×2 (01:03→01:13)
[2019-01-30] MEDS ORDERED: ASPIRIN PO PRN ×2 (01:03→01:13)
[2019-01-30 01:05] LABS: Troponin I Less than 0.010 ng/mL (< 0.028)
[2019-01-30] MEDS ORDERED: Albuterol Sulfate 1.25 MG/3 ML NEB NEB SCH (01:30)
[2019-01-30 02:05] LABS: #Eosinphils 0.2 thou/uL (0.0-0.7); #Lymphocytes 1.2 thou/uL (1.20-3.40); #Monocytes 0.3 thou/uL (0.11-0.59); #Neutrophils 1.6 thou/uL (1.40-6.50); %Basophils 1.4 % (0.0-1.0); %Lymphocytes 35.6 % (21.0-51.0); %Monocytes 8.8 % (0.0-10.0); %Neutrophils 48.2 % (42.0-75.0); Hemoglobin 10.1 g/dL (12.0-16.0); Mean Corpuscular HGB CONC 32.9 g/dL (32.0-36.0); Mean Corpuscular Hemoglobin 32.3 pg (27.0-31.0); Mean Corpuscular Volume 98.4 fL (78.0-98.0); Mean Platelet Volume 8.7 fL (7.4-10.4); Platelet Count 115 thou/uL (130-400); RBC Distribution Width 13.5 % (11.5-14.5); Red Blood Cell (RBC) Count 3.13 mill/uL (4.20-5.40); White Blood Cell (WBC) Count 3.4 thou/uL (4.8-10.8)
[2019-01-30] MEDS ORDERED: Albuterol Sulfate 2.5 mg/3 ml Neb ONE (02:17)
--- NOTE | 2019-01-30 02:19 | HP ---
PRIMARY CARE PROVIDER: Gabrielle Johnson MD CHIEF COMPLAINT: Abnormal labs. HISTORY OF PRESENT ILLNESS: Ms. Galloway is a pleasant 58-year-old lady, who was seen at [facility] on January 30, 2019. She was hospitalized at this facility from January 21 to of this year for a left total knee arthroplasty. The patient is currently sleepy, but arousable, answering questions. She reports that she had blood work done 2 days ago through her primary care provider's office. She was advised to go to the emergency room based on that result. She does not know which number was abnormal. She also reports that she has had mild shortness of breath since surgery, but is unable to elaborate further. She also reports lower extremity swelling. She also reports pain across her upper abdomen that has been going on for several months, but is unable to characterize it further. REVIEW OF SYSTEMS: All other systems reviewed and found to be negative. PAST MEDICAL HISTORY: Chronic obstructive pulmonary disease and hypertension. PAST SURGICAL HISTORY: Right arm surgery, left femur replacement, and right total knee replacement and left total knee replacement. PSYCHIATRIC HISTORY: Anxiety and depression. SOCIAL HISTORY: The patient smokes half a pack of cigarettes a day. She denies alcohol use or recreational drug use. FAMILY HISTORY: No family history of premature coronary artery disease. ALLERGIES: SOMA. CURRENT MEDICATIONS: 1. BC powder packet one packet every 6 hours as needed. 2. Zofran 8 mg every 6 hours as needed. 3. Xanax 0.5 mg daily as needed. 4. Suboxone film 1 film 2 times a day. 5. Escitalopram 20 mg daily. 6. Lisinopril 40 mg daily. 7. Ferrous sulfate 325 mg 2 times a day. 8. Protonix 40 mg daily. PHYSICAL EXAMINATION: GENERAL: On examination, Ms. Galloway is sleepy, but arousable, not in acute distress. VITAL SIGNS: Blood pressure is 152/72, pulse 50, respiratory rate 13, and oxygen saturation 94% on room air. She is afebrile. EYES: No scleral icterus. No conjunctival pallor. ENT: Moist mucosal membranes. No oropharyngeal erythema or exudates. NECK: Supple, nontender, and trachea is midline. RESPIRATORY: Accessory muscles of breathing are not active. Chest wall movements are symmetric bilaterally. She has a few bibasilar crackles. CARDIOVASCULAR: S1 and S2 are heard, bradycardic and regular. Peripheral pulses palpable. No carotid bruit. No pericardial rub. ABDOMEN: Soft, nontender, and bowel sounds heard. NEUROLOGIC: Cranial nerves 2 through 12 intact, deep tendon reflexes 2+. MUSCULOSKELETAL: She has left knee swelling. No erythema or elevated temperature. Incision is dry and intact. SKIN: Trace bilateral lower extremity edema. LYMPHATIC: No cervical lymphadenopathy. PSYCHIATRIC: Normal mood, normal affect, the patient is oriented to person and place, not to time. LABORATORY DATA: Ms. Galloway's labs and investigations were reviewed. I reviewed her electrocardiogram, which shows sinus bradycardia, no ST changes to suggest an acute coronary syndrome. I also reviewed her chest x-ray, which shows pulmonary vascular congestion. She has cytopenias, with white count 3600, hemoglobin 10.8, and platelet count 110,000. Her white count was 4900 on January 23, 2019. Hemoglobin was 13.1 on January 23, 2019. Platelet count was 101,000 on January 23, 2019. Normal sodium, elevated potassium of 5.7, elevated creatinine of 1.11, last known creatinine 0.95 on January 14, 2019, elevated AST of 74, elevated ALT of 56, elevated alkaline phosphatase of 206, these numbers were normal on December 15, 2018. She has decreased albumin of 3.2. BNP is elevated at 403.8. Troponin I is negative x2. ASSESSMENT AND PLAN: Ms. Galloway is a pleasant 58-year-old lady, who was seen at [facility] on January 30, 2019. Her problem list includes: 1. Hyperkalemia: Etiology is unclear. The patient has received 15 g of Kayexalate in the emergency room. I will administer albuterol nebulizer and have her potassium level rechecked. We will hold lisinopril. 2. Acute kidney injury: Hold lisinopril. 3. Abnormal liver function tests: Etiology is unclear at this time, could be secondary to hepatic congestion, since congestive heart failure also suspected. We will check abdominal ultrasound and recheck LFTs. 4. : The patient has a chronic thrombocytopenia. She does have decreased white count and hemoglobin. We will recheck labs. At this point in time, there is no clear evidence of infection. We will check urine studies to rule out urinary tract infection. 5. Congestive heart failure: Suspected, based on history of shortness of breath and physical exam findings of bibasilar crackles and trace lower extremity edema and chest x-ray findings. We will start her on furosemide and check 2D echocardiogram. 6. Chronic obstructive pulmonary disease: Appears to be stable. 7. Hypertension: We will hold lisinopril. We will monitor vital signs and titrate antihypertensives as needed. Many thanks for allowing me to participate in your patient's care. Please feel free to contact me with any questions or concerns. LEVEL OF RISK: High. LEVEL OF COMPLEXITY: High. Job ID: [id number]
[2019-01-30 02:33] LABS: Anion Gap 13 mmol/L (10-20); BUN (Urea Nitrogen) 21 mg/dL (9.8-20.1); Calc. Creatinine Clearance 58 mL/min (70-130); Calcium 8.5 mg/dL (7.8-10.44); Carbon Dioxide 24 mmol/L (22-29); Chloride 106 mmol/L (98-107); Estimated GFR-MDRD 51; Glucose 89 mg/dL (70-105); Sodium 138 mmol/L (136-145)
[2019-01-30 02:35] LABS: ALT (SGPT) 57 U/L (8-55); AST (SGOT) 77 U/L (5-34); Albumin 3.1 g/dL (3.5-5.0); Alkaline Phosphatase 211 U/L (40-150); Bilirubin, Direct 0.3 mg/dL (0.1-0.3); Bilirubin, Total 0.4 mg/dL (0.2-1.2); Protein, Total 6.1 g/dL (6.0-8.3)
[2019-01-30] MEDS: Acetaminophen 325 MG TAB PO PRN ×3 (04:13→23:02)
[2019-01-30 04:51] LABS: Bilirubin Negative (Negative); Blood, Urine Negative (Negative); Clarity CLEAR (Clear); Glucose, Urine (Dipstick) Negative (Negative); Leukocyte Negative (Negative); Nitrite Negative (Negative); Protein, Urine (Dipstick) Trace mg/dL (Neg-Trace); Specific Gravity, Urine 1.021 (1.002-1.036); pH, Urine 5.5 (5.0-9.0)
[2019-01-30 04:54] LABS: Bacteria/HPF None Seen HPF (None Seen); Hyaline Casts/LPF 4-6 HYALINE CAST LPF (0-3 Hyaline); Pathc Cast-AUWi Flag 0.54 (0-2.49); RBC/HPF 0-3 HPF (0-3); Squamous Epithelial 0-3 HPF (0-3); WBC/HPF 0-3 HPF (0-3)
[2019-01-30 05:08] LABS: Medtox Reader # READER 1; THC/Cannabinoid Screen Detected (NotDetected); Urine Culture Reflex No No
[2019-01-30 05:09] LABS: Amphetamine Not Detected (NotDetected); Barbiturates Screen Detected (NotDetected); Benzodiazepine Screen Detected (NotDetected); Cocaine Metabolite Screen Not Detected (NotDetected); Medtox Control Line Valid? VALID (VALID); Methadone Not Detected (NotDetected); Methamphetamine Not Detected (NotDetected); Opiate Screen Detected (NotDetected); Oxycodone Screen Not Detected (NotDetected); Phencyclidine (PCP) Not Detected (NotDetected); Tricyclic Screen Not Detected (NotDetected)
[2019-01-30] MEDS: Furosemide 20 MG/2 ML VIAL SLOW IVP SCH ×2 (06:50→14:00)
--- NOTE | 2019-01-30 08:03 | CT ---
PRELIMINARY REPORT/[facility]/EMERGENCY AFTER HOURS PROCEDURE: EXAM: CT Angiography Chest With Contrast EXAM DATE/TIME: 01/30/2019 3:31 AM CLINICAL HISTORY: 58 years old, female; Signs and symptoms; Dyspnea; Patient HX: PT recently had a knee replacement. Sa ys she has had SOB 'for a while'. PT very poor historian. Bibasilar crackles per nurse. TECHNIQUE: Imaging protocol: Axial computed tomographic angiography images of the chest with intravenous contras t using CT angiography protocol. 3D rendering: MIP reconstructed images were created and reviewed. COMPARISON: No relevant prior studies available. FINDINGS: Pulmonary arteries: No evidence of a pulmonary embolism. Aorta: No thoracic aortic aneurysm. Lungs: Emphysematous changes. Right middle lobe atelectasis. Nonspecific faint ground glass opacities in the right middle lobe and lung bases. Pleural space: No pleural effusion or pneumothorax. Heart: The heart is enlarged. No abnormal pericardial effusion. Spleen: Partially visualized splenomegaly with the spleen measuring greater than 12 cm in craniocauda l dimension. Lymph nodes: Mildly enlarged mediastinal lymph nodes measuring up to 1.2 cm in short diameter right l ower paratracheal region. Bones/joints: Unremarkable. No acute fracture. Soft tissues: Incidental right lateral chest wall lipoma inferior to the scapula measuring approximat tracy 4 x 1.2 cm. IMPRESSION: 1. No evidence of a pulmonary embolism. 2. Cardiomegaly and emphysematous changes. 3. Mildly enlarged mediastinal lymph nodes are likely reactive. 4. Partially visualized splenomegaly. Thank you for allowing us to participate in the care of your patient. Dictated and Authenticated by: Maria C Tomlinson MD 01/30/2019 5:03 AM Central Time ([place] & [place]) FINAL REPORT CT ANGIOGRAM OF CHEST: Date: 01/30/19 HISTORY: Recent knee replacement. Shortness of breath. COMPARISON: None. TECHNIQUE: CT angiogram of chest performed in the axial plane. Three-dimensional reformatted images are submitte d for interpretation. FINDINGS: This report is in agreement with the preliminary report by Kalee. There is no evidence of pulmonary ar ricardo embolism to the level of the segmental arteries. Mild cardiomegaly. There are emphysematous parks ges. There are enlarged mediastinal lymph nodes, nonspecific. IMPRESSION: 1. No evidence of pulmonary artery embolism. 2. Mild mediastinal cardiomegaly, nonspecific. Correlate for reactive change versus malignant proces s. POS: [facility]
[2019-01-30] MEDS: Enoxaparin Sodium 40 MG/0.4 ML SYRINGE SC SCH (09:33)
[2019-01-30] MEDS: Ferrous Sulfate 325 MG TAB PO SCH ×2 (09:33→17:42)
[2019-01-30] MEDS: Escitalopram Oxalate 20 mg Tablet PO SCH (09:33)
[2019-01-30] MEDS: Nicotine 14 MG PATCH TD SCH (09:33)
--- NOTE | 2019-01-30 11:16 | ULT ---
FGallbladder ultrasound: Multiple grayscale images of right upper quadrant obtained according to protocol. INDICATION: Pain FINDINGS: Liver: Prominent in size, between 17 and 18 cm in length Gallbladder: Incompletely distended with associated wall prominence Gallbladder wall: Presumed physiologic wall prominence, as above. Sanchez's Sign: Positive Sanchez sign is not reported by the press cutter Common bile duct is normal. Ascites: None Mild prominence of incompletely assessed right renal collecting system. Correlate clinically. IMPRESSION: Contracted gallbladder, limiting assessment. Mild prominence of the incidentally imaged right renal collecting system. Dedicated renal ultrasound may prove useful.
[2019-01-30] MEDS ORDERED: ALPRAZolam 0.5 MG TAB PO PRN (14:32)
[2019-01-30] MEDS ORDERED: ISOVUE-370 76%-LOCM 1 ML ONE (14:51)
[2019-01-30] MEDS: cloNIDine 0.1 MG TAB PO PRN (16:08)
--- NOTE | 2019-01-30 17:06 | PDOC.PN ---
- Subjective Encounter Start Date: 01/30/19 Encounter Start Time: 17:04 Patient denies any symptoms at this time other than chronic pain. She denies chest pain or shortness of breath. She was admitted secondary to abnormal labs. Potassium improved, however elevated liver enzymes noted. She denies history of hepatitis as she knows about. - Objective MAR Reviewed: Yes Vital Signs & Weight: Vital Signs (12 hours) Temp Pulse Resp BP Pulse Ox 01/30/19 16:01 98.0 F 48 L 15 148/75 H 91 L 01/30/19 11:38 98.1 F 59 L 20 186/88 H 94 L 01/30/19 07:49 97.3 F L 59 L 16 181/93 H 94 L Weight Weight 143 lb 6.4 oz I&O: 01/29/19 01/30/19 01/31/19 06:59 06:59 06:59 Intake Total 240 Output Total 50 Balance 190 Result Diagrams: 01/30/19 01:47 01/30/19 01:47 Radiology Reviewed by me: Yes Phys Exam - Physical Examination Constitutional: NAD HEENT: oral pharynx no lesions Neck: supple Respiratory: no wheezing, clear to auscultation bilateral Cardiovascular: RRR, no significant murmur Gastrointestinal: soft, positive bowel sounds Musculoskeletal: pulses present Neurological: moves all 4 limbs Lymphatic: no nodes Psychiatric: A&O x 3 Skin: no rash, cap refill <2 seconds Dx/Plan (1) Elevated liver enzymes Code(s): R74.8 - ABNORMAL LEVELS OF OTHER SERUM ENZYMES Status: Acute (2) Elevated brain natriuretic peptide (BNP) level Code(s): R79.89 - OTHER SPECIFIED ABNORMAL FINDINGS OF BLOOD CHEMISTRY Status : Acute (3) Anxiety and depression Code(s): F41.9 - ANXIETY DISORDER, UNSPECIFIED; F32.9 - MAJOR DEPRESSIVE DISORDER, SINGLE EPISODE, UNSPECIFIED Status: Chronic (4) COPD (chronic obstructive pulmonary disease) Status: Chronic Comment: stable (5) HTN (hypertension) Code(s): I10 - ESSENTIAL (PRIMARY) HYPERTENSION Status: Chronic Comment: BP high at times, ? secondary to pain (6) Tobacco abuse Code(s): Z72.0 - TOBACCO USE Status: Chronic Comment: on nicotine patch (7) TRACY (acute kidney injury) Code(s): N17.9 - ACUTE KIDNEY FAILURE, UNSPECIFIED Status: Acute - Plan cont current plan of care, DVT proph w/lovenox * Recheck labs in the am * Check hepatitis * Potassium improved today s/p kayaxelate * Continue home medication, hold nephrotoxic and hepatotoxic meds * TRACY improving * D-dimer elevated, CTA negative for PE * ABD us unremarkable
[2019-01-30 18:49] LABS: HBSAg Index 0.31 S/CO (0-0.99); Hep B Surf Ag Non-Reactive S/CO (NonReactive)
[2019-01-30 18:51] LABS: Hep A IgM AB Non-Reactive (NonReactive); Hep A IgM S/CO 0.24 S/CO (0-0.79)
[2019-01-30 20:59] LABS: HBCM Index 0.81 S/CO (0-0.79); Hep C IgG Ab Reflex HepC Qnt (NonReactive); Hep C Index 12.81 S/CO (0-0.79)
[2019-01-30 21:00] LABS: Hepatitis B Core IgM Abs Equivocal (NonReactive)
[2019-01-30] MEDS ORDERED: NALOXONE HCL SL SCH (21:00)
[2019-01-30] MEDS ORDERED: BUPRENORPHINE HCL SL SCH (21:00)
[2019-01-30] MEDS: Ibuprofen 200 MG TAB PO PRN (21:02)
[2019-01-31] MEDS: Ibuprofen 200 MG TAB PO PRN ×3 (00:45→10:14)
[2019-01-31] MEDS: Acetaminophen 325 MG TAB PO PRN (03:29)
[2019-01-31] MEDS: Furosemide 20 MG/2 ML VIAL SLOW IVP SCH (05:16)
[2019-01-31] MEDS: cloNIDine 0.1 MG TAB PO PRN ×2 (05:27→10:12)
[2019-01-31 08:21] VITALS: TEMP 97.9
[2019-01-31] MEDS: Enoxaparin Sodium 40 MG/0.4 ML SYRINGE SC SCH ×2 (08:45→09:24)
[2019-01-31] MEDS: Escitalopram Oxalate 20 mg Tablet PO SCH (08:45)
[2019-01-31] MEDS: Ferrous Sulfate 325 MG TAB PO SCH (08:45)
[2019-01-31] MEDS: Nicotine 14 MG PATCH TD SCH (08:47)
[2019-01-31] MEDS ORDERED: Bisoprolol Fumarate 5 MG TAB PO SCH (09:00)
[2019-01-31 09:34] LABS: #Basophils 0.1 thou/uL (0.0-0.2); #Eosinphils 0.1 thou/uL (0.0-0.7); #Lymphocytes 0.8 thou/uL (1.20-3.40); #Monocytes 0.4 thou/uL (0.11-0.59); #Neutrophils 2.3 thou/uL (1.40-6.50); %Basophils 1.6 % (0.0-1.0); %Lymphocytes 22.6 % (21.0-51.0); %Monocytes 10.3 % (0.0-10.0); %Neutrophils 62.5 % (42.0-75.0); Hemoglobin 12.6 g/dL (12.0-16.0); Mean Corpuscular HGB CONC 32.5 g/dL (32.0-36.0); Mean Corpuscular Hemoglobin 31.8 pg (27.0-31.0); Mean Corpuscular Volume 97.9 fL (78.0-98.0); Mean Platelet Volume 8.7 fL (7.4-10.4); Platelet Count 157 thou/uL (130-400); RBC Distribution Width 13.6 % (11.5-14.5); Red Blood Cell (RBC) Count 3.96 mill/uL (4.20-5.40); White Blood Cell (WBC) Count 3.6 thou/uL (4.8-10.8)
[2019-01-31 09:58] LABS: ALT (SGPT) 56 U/L (8-55); AST (SGOT) 76 U/L (5-34); Albumin 3.5 g/dL (3.5-5.0); Alkaline Phosphatase 262 U/L (40-150); Anion Gap 10 mmol/L (10-20); BUN (Urea Nitrogen) 19 mg/dL (9.8-20.1); Bilirubin, Total 0.8 mg/dL (0.2-1.2); Calc. Creatinine Clearance 68 mL/min (70-130); Calcium 9.5 mg/dL (7.8-10.44); Carbon Dioxide 32 mmol/L (22-29); Chloride 101 mmol/L (98-107); Estimated GFR-MDRD 61; Globulin 3.9 g/dL (2.4-3.5); Glucose 90 mg/dL (70-105); Potassium 4.2 mmol/L (3.5-5.1); Protein, Total 7.4 g/dL (6.0-8.3); Sodium 139 mmol/L (136-145)
[2019-01-31 12:01] VITALS: BP 155/76
[2019-01-31] MEDS ORDERED: Amlodipine 5 MG TAB PO SCH (13:45)
[2019-02-01] MEDS ORDERED: Amlodipine 5 MG TAB PO SCH (09:00)
[2019-02-02 14:08] LABS: HCV log10 6.899 (.); Hep C PCR-Quant 7930000 IU/mL (.)
== END 2019-01-31 16:09 | disposition home or self-care (01) ==
LOC: ERS 18:40 → 2SW 23:18
PROVIDERS: ADMIT Internal Medicine; ATTEND Internal Medicine
DX: E87.5 Hyperkalemia (principal); R94.5 Abnormal results of liver function studies; R74.8 Abnormal levels of other serum enzymes; R79.89 Other specified abnormal findings of blood chemistry; N17.9 Acute kidney failure, unspecified; J44.9 Chronic obstructive pulmonary disease, unspecified; I10 Essential (primary) hypertension; F41.9 Anxiety disorder, unspecified; F32.9 Major depressive disorder, single episode, unspecified; F17.210 Nicotine dependence, cigarettes, uncomplicated; D69.6 Thrombocytopenia, unspecified; Z96.653 Presence of artificial knee joint, bilateral; Z88.8 Allergy status to other drugs, medicaments and biological substances; Z79.899 Other long term (current) drug therapy
CPT/HCPCS: 36415; 71046; 71275; 76705; 80048; 80053; 80074; 80076; 80306; 81001; 83690; 83880; 84484; 85025; 85379; 87522; 93005; 93306; 96372; 96374; 96376; G0378; J1650; J1940; J7611; Q9966

== ENCOUNTER 2019-02-03 12:36 | Emergency (ER) | payer OTHER ==
[2019-02-03 13:34] LABS: Bilirubin Negative (Negative); Blood, Urine Negative (Negative); Clarity CLEAR (Clear); Glucose, Urine (Dipstick) Negative (Negative); Leukocyte Negative (Negative); Nitrite Negative (Negative); Protein, Urine (Dipstick) 30 mg/dL (Neg-Trace); Specific Gravity, Urine 1.009 (1.002-1.036)
[2019-02-03 13:37] LABS: Bacteria/HPF None Seen HPF (None Seen); Hyaline Casts/LPF 0-3 HYALINE CAST LPF (0-3 Hyaline); RBC/HPF 0-3 HPF (0-3); Squamous Epithelial None Seen HPF (0-3); WBC/HPF None Seen HPF (0-3)
[2019-02-03 13:50] LABS: #Eosinphils 0.2 thou/uL (0.0-0.7); #Lymphocytes 1.3 thou/uL (1.20-3.40); #Monocytes 0.5 thou/uL (0.11-0.59); #Neutrophils 3.5 thou/uL (1.40-6.50); %Basophils 0.7 % (0.0-1.0); %Eosinophils 3.8 % (0.0-10.0); %Lymphocytes 22.6 % (21.0-51.0); %Monocytes 9.6 % (0.0-10.0); %Neutrophils 63.3 % (42.0-75.0); Hemoglobin 12.2 g/dL (12.0-16.0); Mean Corpuscular HGB CONC 32.7 g/dL (32.0-36.0); Mean Corpuscular Hemoglobin 32.1 pg (27.0-31.0); Mean Corpuscular Volume 98.3 fL (78.0-98.0); Mean Platelet Volume 8.8 fL (7.4-10.4); Platelet Count 190 thou/uL (130-400); RBC Distribution Width 13.9 % (11.5-14.5); White Blood Cell (WBC) Count 5.6 thou/uL (4.8-10.8)
--- NOTE | 2019-02-03 13:52 | RAD ---
FXR Chest 1 View Portable History: [Chest pain] Comparison: Radiograph 2017 Findings: Mild levoscoliosis. Lungs are mildly hyperinflated. Mild scarring lung bases. Heart size is mildly enlarged. No acute osseous abnormality. Impression: Chronic changes. No acute intrathoracic abnormality.
--- NOTE | 2019-02-03 13:56 | CT ---
FCT Brain WO Con: 02/03/2019 1:29 PM CLINICAL HISTORY: Altered mental status. COMPARISON: None. FINDINGS: Hemorrhage: None. Ventricular system: Normal in size and morphology for the patient's age. Cerebral parenchyma: Normal Midline shift: None. Mass: No mass effect. Calvarium: Normal. Visualized Paranasal sinuses: Mild mucosal thickening. IMPRESSION: No acute intracranial abnormalities.
[2019-02-03 14:15] LABS: ALT (SGPT) 42 U/L (8-55); AST (SGOT) 72 U/L (5-34); Albumin 3.6 g/dL (3.5-5.0); Alcohol Less than 10 mg/dL (Less than 10); Alkaline Phosphatase 245 U/L (40-150); Anion Gap 15 mmol/L (10-20); BUN (Urea Nitrogen) 20 mg/dL (9.8-20.1); Bilirubin, Total 0.7 mg/dL (0.2-1.2); Calc. Creatinine Clearance 0 mL/min (70-130); Calcium 9.1 mg/dL (7.8-10.44); Carbon Dioxide 25 mmol/L (22-29); Chloride 104 mmol/L (98-107); Estimated GFR-MDRD 51; Glucose 79 mg/dL (70-105); Lipase 25 U/L (8-78); Potassium 4.5 mmol/L (3.5-5.1); Protein, Total 7.6 g/dL (6.0-8.3); Salicylate Less than 8.0 mg/dL (15.0-30.0); Sodium 139 mmol/L (136-145)
[2019-02-03 14:33] LABS: Barbiturates Screen Detected (NotDetected); Benzodiazepine Screen Detected (NotDetected); Medtox Reader # READER 1; THC/Cannabinoid Screen Detected (NotDetected)
[2019-02-03 14:34] LABS: Amphetamine Not Detected (NotDetected); Cocaine Metabolite Screen Not Detected (NotDetected); Medtox Control Line Valid? VALID (VALID); Methadone Not Detected (NotDetected); Methamphetamine Not Detected (NotDetected); Opiate Screen Not Detected (NotDetected); Oxycodone Screen Not Detected (NotDetected); Phencyclidine (PCP) Not Detected (NotDetected); Tricyclic Screen Not Detected (NotDetected)
[2019-02-03] MEDS ORDERED: Lorazepam 2 MG/ML VIAL ONE (19:18)
[2019-02-03] MEDS ORDERED: Acetaminophen 500 MG TAB ONE (23:05)
[2019-02-03] MEDS ORDERED: traZODone HCl 50 MG TAB ONE (23:59)
--- NOTE | 2019-02-08 09:50 | EKG ---
Test Reason : Blood Pressure : / mmHG Vent. Rate : 040 BPM Atrial Rate : 040 BPM P-R Int : 148 ms QRS Dur : 090 ms QT Int : 472 ms P-R-T Axes : 076 036 031 degrees QTc Int : 384 ms Marked sinus bradycardia Possible Left atrial enlargement Abnormal ECG Confirmed by CORONA MITCHELL, MICHAEL Us ([id number]), staff editor PERICO LLAMAS ([id number]) on 02/08/2019 9:50:27 AM Referred By: Confirmed By:MIHCAEL JETER MD
== END 2019-02-04 01:56 ==
LOC: ERS 12:36
DX: R45.851 Suicidal ideations (principal); I10 Essential (primary) hypertension; F32.9 Major depressive disorder, single episode, unspecified; F17.200 Nicotine dependence, unspecified, uncomplicated
CPT/HCPCS: 36415; 36416; 70450; 71045; 80053; 80306; 80307; 81003; 81015; 83605; 83690; 83880; 84443; 84484; 85025; 87040; 93005; 96372; J2060

== ENCOUNTER 2019-11-04 14:52 | Inpatient (IN) | payer OTHER ==
--- NOTE | 2019-11-04 17:06 | CT ---
Exam: CT brain PROVIDED CLINICAL HISTORY: Altered mental status COMPARISON: 02/03/2019 FINDINGS: The ventricular system is normal in size and morphology. No evidence for intracranial hemorrhage or mass effect. The extracranial soft tissues and osseous structures demonstrate no evidence for an acute abnormality. IMPRESSION: No evidence for intracranial hemorrhage or mass effect.
--- NOTE | 2019-11-04 17:33 | RAD ---
EXAM: CHEST ONE VIEW HISTORY: Hallucinations both visual and auditory. COMPARISON: 02/03/2019 FINDINGS: Cardiac silhouette is magnified by projection and patient rotation but does appear mildly enlarged. T he pulmonary vasculature is within normal limits. There are increased linear and patchy densities at the left lung base worrisome for infiltrate. There is also suggestion of a small left pleural effu kortney. Right lung is clear. Subcutaneous emphysema seen along the left lateral chest extending from the left supraclavicular sylvain on to the level of the left upper quadrant. There are fractures involving the lateral left sixth, seventh, and 8 left-sided ribs. There is suggestion of a small left apical pneumothorax. There is S-s haped scoliotic curvature thoracolumbar spine. IMPRESSION: 1. Fractures involving the left sixth through eighth lateral ribs with associated small left apical p neumothorax which appears to occupy less than 15% of volume of the left hemithorax. There is also small left pleural effusion. 2. Linear and minimal patchy densities left lung base which may be related to atelectasis. Infiltrate could not be entirely excluded. Follow-up to resolution is recommended. 3. Subcutaneous emphysema. 4. Above findings discussed with Dr. Mccloud in the emergency department on 11/04/2019 at 1728 hours.
[2019-11-04 17:35] LABS: #Lymphocytes 1.2 thou/uL (1.20-3.40); #Monocytes 0.8 thou/uL (0.11-0.59); #Neutrophils 5.6 thou/uL (1.40-6.50); %Basophils 0.5 % (0.0-1.0); %Eosinophils 0.5 % (0.0-10.0); %Lymphocytes 15.1 % (21.0-51.0); %Monocytes 10.8 % (0.0-10.0); Hemoglobin 13.3 g/dL (12.0-16.0); Mean Corpuscular HGB CONC 34.6 g/dL (32.0-36.0); Mean Corpuscular Hemoglobin 31.1 pg (27.0-31.0); Mean Corpuscular Volume 90.1 fL (78.0-98.0); Mean Platelet Volume 8.7 fL (7.4-10.4); Platelet Count 193 thou/uL (130-400); RBC Distribution Width 14.3 % (11.5-14.5); Red Blood Cell (RBC) Count 4.27 mill/uL (4.20-5.40); White Blood Cell (WBC) Count 7.7 thou/uL (4.8-10.8)
[2019-11-04 17:54] LABS: ALT (SGPT) 54 U/L (8-55); AST (SGOT) 75 U/L (5-34); Albumin 4.1 g/dL (3.5-5.0); Alkaline Phosphatase 114 U/L (40-110); Anion Gap 17 mmol/L (10-20); BUN (Urea Nitrogen) 51 mg/dL (9.8-20.1); Bilirubin, Total 1.1 mg/dL (0.2-1.2); CK (CPK) 675 U/L (29-168); Calc. Creatinine Clearance 0 mL/min (70-130); Calcium 9.8 mg/dL (7.8-10.44); Carbon Dioxide 25 mmol/L (22-29); Chloride 103 mmol/L (98-107); Estimated GFR-MDRD 24; Globulin 4.3 g/dL (2.4-3.5); Glucose 115 mg/dL (70-105); Potassium 5.3 mmol/L (3.5-5.1); Protein, Total 8.4 g/dL (6.0-8.3); Sodium 140 mmol/L (136-145)
[2019-11-04 18:53] LABS: Acetaminophen Less than 6.0 mcg/mL (10.0-30.0); Alcohol Less than 10 mg/dL (Less than 10); Salicylate Less than 8.0 mg/dL (15.0-30.0)
[2019-11-04 19:17] LABS: Bilirubin Negative (Negative); Blood, Urine Negative (Negative); Clarity Clear (Clear); Glucose, Urine (Dipstick) Normal (Negative); Leukocyte Negative Leu/uL (Negative); Nitrite Negative (Negative); Protein, Urine (Dipstick) 30 mg/dL (Neg-Trace); RBC/HPF 0-3 HPF (0-3); Squamous Epithelial 0-3 HPF (0-3); WBC/HPF 0-3 HPF (0-3)
[2019-11-04 19:21] LABS: Amphetamine Not Detected (NotDetected); Barbiturates Screen Not Detected (NotDetected); Benzodiazepine Screen Detected (NotDetected); Cocaine Metabolite Screen Not Detected (NotDetected); Medtox Control Line Valid? VALID (VALID); Medtox Reader # READER 1; Methadone Not Detected (NotDetected); Methamphetamine Not Detected (NotDetected); Opiate Screen Not Detected (NotDetected); Oxycodone Screen Not Detected (NotDetected); Phencyclidine (PCP) Not Detected (NotDetected); THC/Cannabinoid Screen Not Detected (NotDetected); Tricyclic Screen Not Detected (NotDetected)
[2019-11-04 19:33] LABS: Bacteria/HPF Rare-Few HPF (None Seen)
[2019-11-04] MEDS ORDERED: Dextrose 5% in Water 1,000 ML IV PRN (21:59)
[2019-11-04] MEDS ORDERED: Ondansetron PF 4 MG/2 ML Vial IVP PRN (21:59)
[2019-11-04] MEDS ORDERED: Dextrose 50% Abboject 50 ML SYRINGE SLOW IVP PRN (21:59)
[2019-11-04] MEDS ORDERED: Rib Fracture Protocol PO SCH (22:00)
[2019-11-04] MEDS ORDERED: cloNIDine 0.1 MG TAB PO PRN (22:02)
--- NOTE | 2019-11-04 22:06 | CT ---
CT ABDOMEN AND PELVIS WITHOUT CONTRAST: 11/04/19 PROVIDED CLINICAL HISTORY: Midline abdominal pain status post injury. FINDINGS: Small left pneumothorax is demonstrated along with left pleural fluid demonstrates Hounsfield units s uggestive of blood products. Multiple lower left rib fractures including displaced left 8th rib fract ure There is a subcapsular fluid collection involving the lateral margin of the spleen measuring about 6. 8 x 3.3 cm in greatest transverse dimensions and about 7.5 cm in craniocaudal dimension. Splenomegaly is noted. There is subcutaneous emphysema noted involving the left lateral lower chest and upper abdomen. The solid abdominal organs are suboptimally evaluated in the absence of IV contrast but demonstrate a n otherwise unremarkable unenhanced CT appearance. There is no bowel dilatation, intraperitoneal fat stranding, free intraperitoneal fluid, or free intr aperitoneal air apparent. Vascular calcifications are noted. The osseous structures demonstrate no additional evidence for traumatic abnormality. IMPRESSION: 1. Multiple lower left rib fractures including displaced left 8th rib fracture. Small volume pne umothorax and hemothorax on the left partially visualized. 2. Subcapsular fluid collection involving the lateral margin of the spleen. This may reflect sub capsular hematoma. 3. Splenomegaly. POS: [facility]
[2019-11-04] MEDS ORDERED: Haloperidol Lactate 5 MG/ML VIAL IM SCH (22:15)
[2019-11-04] MEDS ORDERED: Cyclobenzaprine 10 MG TAB PO PRN (22:30)
[2019-11-04] MEDS ORDERED: Sodium Chloride 0.9% 500 ML IV SCH (22:45)
[2019-11-04 23:06] LABS: Anion Gap 18 mmol/L (10-20); BUN (Urea Nitrogen) 49 mg/dL (9.8-20.1); Calc. Creatinine Clearance 0 mL/min (70-130); Calcium 9.3 mg/dL (7.8-10.44); Carbon Dioxide 21 mmol/L (22-29); Chloride 105 mmol/L (98-107); Estimated GFR-MDRD 33; Glucose 107 mg/dL (70-105); Potassium 4.9 mmol/L (3.5-5.1); Sodium 139 mmol/L (136-145)
--- NOTE | 2019-11-04 23:48 | HP ---
HISTORY OF PRESENT ILLNESS: Ms. Galloway is a 59-year-old female, who presented to the ED after a fall at home. Currently, the patient is having psychosis as visual hallucination and disoriented; however, she is alert and awake, answer questions appropriately with regard to her name, where she is, but she did not appropriately answer question on how old is she. The patient reports she was falling at home, did not hit her head or loss of consciousness. Upon arrival in the ED, the patient was alert and awake, vital signs stable, disoriented, hallucination. REVIEW OF SYSTEMS: Noncontributory except per HPI. PAST MEDICAL HISTORY: Hypertension. PAST SURGICAL HISTORY: Includes hysterectomy, right knee surgery. PSYCHIATRIC HISTORY: Include depression, substance abuse. PHYSICAL EXAMINATION: GENERAL: The patient is currently lying down in bed, in no acute respiratory distress. The patient have psychosis episode, talk by herself in full sentence with appropriate meaning. Worker's compensation. VITAL SIGNS: Blood pressure is 154/89, heart rate 75, respiratory rate 19, temperature 98.3, O2 saturation 97% on room air. LUNGS: Clear bilaterally. Chest wall tender to palpation on the left side. No crepitus. No bruising. HEART: Regular rate and rhythm. ABDOMEN: Atraumatic. No bruising. No deformity. Bowel sounds normal. No tender to palpation. PELVIS: Stable. EXTREMITIES: The patient able to move all 4 extremities. NEUROLOGIC: Unable to exam neurology site appropriately except the patient moves all her 4 extremities voluntarily. PSYCHIATRIC: Hallucination was silent. LABORATORY DATA: Initial workup, drug screen show high on benzodiazepine. Sodium is 140, potassium 5.3, creatinine 2.08, BUN 51, glucose 115, AST 75, ALT is 54. White count 7.7, hemoglobin is 13.3. IMAGING DATA: Chest x-ray show fracture of the left 6th through 8th rib with left apical pneumothorax and less than 15% volume of left hemothorax, small left pleural effusion. Brain CT scan shows no acute intracranial hemorrhage. ASSESSMENT: 1. Status post ground level fall. 2. Left rib fracture from 6th to 8th. 3. Left hemothorax, no signs of respiratory distress. 4. Substance abuse, benzodiazepine overdose. 5. Acute psychosis and history of depression. 6. Hyperkalemia. 7. Acute kidney injury. PLAN: The patient will be admitted to [place] [id number] for pain control. The patient will be put on rib fracture protocol p.o. The patient will have fluid transfusion for acute kidney injury. We will recheck potassium level. We will have 1 dose of Haldol for psychosis episode. Initiate nonpharmacological DVT prophylaxis, gastritis prophylaxis. Initiate spirometry. Repeat chest x-ray tomorrow. Job ID: [id number]
[2019-11-05] MEDS ORDERED: traMADol HCl 50 MG TAB ONE (00:02)
[2019-11-05] MEDS ORDERED: Cyclobenzaprine 10 MG TAB ONE (00:02)
[2019-11-05] MEDS ORDERED: Labetalol HCl 100 MG/20 ML VIAL ONE (00:42)
[2019-11-05] MEDS: Acetaminophen 500 MG TAB PO SCH ×2 (02:43→05:28)
[2019-11-05] MEDS: Ibuprofen 800 MG TAB PO SCH ×4 (02:43→18:16)
[2019-11-05] MEDS: Acetaminophen 650 MG Suppository PR SCH ×2 (02:43→05:36)
[2019-11-05] MEDS: traMADol HCl 50 MG TAB PO SCH ×4 (02:44→18:16)
[2019-11-05] MEDS: Sodium Chloride 0.9% 1,000 ML IV SCH ×2 (03:16→09:24)
[2019-11-05 05:55] LABS: Anion Gap 17 mmol/L (10-20); BUN (Urea Nitrogen) 44 mg/dL (9.8-20.1); CK (CPK) 317 U/L (29-168); Calc. Creatinine Clearance 42 mL/min (70-130); Calcium 9.2 mg/dL (7.8-10.44); Carbon Dioxide 22 mmol/L (22-29); Chloride 107 mmol/L (98-107); Estimated GFR-MDRD 45; Glucose 102 mg/dL (70-105); Magnesium 2.1 mg/dL (1.6-2.6); Phosphorus 3.6 mg/dL (2.3-4.7); Potassium 4.8 mmol/L (3.5-5.1); Sodium 141 mmol/L (136-145)
[2019-11-05] MEDS: hydrALAZINE 20 MG/ML VIAL SLOW IVP PRN ×3 (06:35→20:16)
--- NOTE | 2019-11-05 07:43 | RAD ---
Chest one view HISTORY: Pneumothorax. Follow-up. COMPARISON: 11/04/2019. FINDINGS: Cardiac silhouette is magnified and upper limits of normal in size. Pulmonary vasculature n ow slightly engorged. Mediastinum is midline. Lung markings now extend to the left apex. Left rib fractures and left chest wall gas similar in appe arance to the prior study. Atelectasis/contusion at the left base is stable. IMPRESSION: Interval resolution of left apical pneumothorax. Posttraumatic changes of the left chest otherwise stable.
[2019-11-05] MEDS: Amlodipine 5 MG TAB PO SCH (09:19)
[2019-11-05] MEDS: Gabapentin 300 MG CAP PO SCH ×3 (09:19→14:54)
[2019-11-05] MEDS: Baclofen 10 MG TAB PO SCH ×3 (09:20→21:16)
[2019-11-05] MEDS: OLANZapine 5 MG TAB PO SCH (09:20)
[2019-11-05] MEDS: Carvedilol 6.25 MG TAB PO SCH ×2 (09:20→21:15)
[2019-11-05] MEDS: Senokot S 8.6-50 MG TAB PO SCH ×2 (09:20→21:18)
[2019-11-05] MEDS: Escitalopram Oxalate 20 mg Tablet PO SCH (09:20)
[2019-11-05] MEDS: cloNIDine 0.1 MG TAB PO SCH ×3 (09:20→21:17)
[2019-11-05] MEDS: Famotidine 20 MG TAB PO SCH ×2 (09:21→21:18)
[2019-11-05] MEDS: ALPRAZolam 0.5 MG TAB PO SCH ×3 (09:22→21:10)
[2019-11-05] MEDS: Bupropion 150 MG XL TAB PO SCH (09:23)
[2019-11-05] MEDS: Polyethylene Glycol 3350 17 GM Packet PO SCH (09:24)
[2019-11-05] MEDS ORDERED: diphenhydrAMINE 50 MG in Sodium Chloride 0.9% 50 ML IVPB SCH (11:15)
[2019-11-05] MEDS ORDERED: Haloperidol Lactate 5 MG/ML VIAL SLOW IVP SCH (11:15)
[2019-11-05] MEDS: Acetaminophen 325 MG TAB PO SCH ×2 (11:16→18:16)
[2019-11-05] MEDS ORDERED: Lorazepam 2 MG/ML VIAL SLOW IVP SCH (11:45)
[2019-11-05] MEDS ORDERED: Haloperidol Lactate 5 MG/ML VIAL SLOW IVP PRN (16:01)
[2019-11-05] MEDS ORDERED: Furosemide 40 MG/4 ML VIAL ONE (16:36)
[2019-11-05] MEDS ORDERED: Furosemide 20 MG/2 ML VIAL SLOW IVP SCH (16:45)
[2019-11-05] MEDS: Nicotine 14 MG PATCH TD SCH (16:55)
--- NOTE | 2019-11-05 18:41 | CT ---
NONCONTRAST CT THORAX: 11/05/19 HISTORY: Respiratory distress after trauma. Decreased oxygen saturation. Possible fluid overload. COMPARISON: CT abdomen on 11/04/19 as well as CTA chest on 01/30/19. FINDINGS: Again noted is the trace pneumothorax seen at the left lung base predominantly anteriorly. There is a lso stable left pleural fluid again likely related to hemorrhage given increased density. There is now mild consolidation at the left lung base with patchy parenchymal densities also now pres ent at the right lung base. In addition, there are filling defects seen within lower lobe bronchi bi laterally, and findings may be related to interval aspiration, possibly aspiration pneumonitis at eac h lung base. Minimal reticulonodular density seen in the superior segment of the right lower lobe. The left sided rib fractures are again seen with adjacent subcutaneous emphysema. There is a splenic subcapsular collection again seen laterally. The dimensions of this collection john sure approximately 6.4 cm x 3.3 cm which is smaller when compared to the prior study with previous me asurements of 6.8 cm x 3.3 cm. The differences in size may be related to slice selection. Vascular calcifications are seen in the thoracic aorta. Lack of intravenous contrast does limit evaluation of the vascular structures as well as mediastinum. Mildly prominent precarinal lymph node is seen just anterior to the right main stem bronchus. This i s thought to be related to prominent a lymph node measuring 1.4 cm as opposed to a vascular structure . Degenerative changes are seen in the spine with left convexed curvature of the thoracic spine. Verte bral body heights of the thoracic spine are within normal limits, and no obvious fracture is seen inv olving the thoracic spine. Subcutaneous emphysema extends from the left supraclavicular region along the left lateral chest to t he level of the upper abdomen on the left. IMPRESSION: 1. Interval development of patchy area of consolidation in the left lung base with patchy parenc hymal air space densities at the right lung base as well as filling defects in bilateral lower lobe p ulmonary arteries. These findings may be related to interval aspiration with subsequent development o f aspiration pneumonitis. 2. Persistent trace left pneumothorax with small amount of increased density left pleural fluid suggesting small amount of hemorrhage. 3. Multiple left sided rib fractures including displaced 7th and 8th lateral rib fractures. Adj acent subcutaneous emphysema is present. 4. Overall stable subcapsular fluid collection along the lateral margin of the spleen. 5. Splenomegaly. 6. Limited evaluation of the vascular structures and mediastinum due to lack of intravenous cont rast. Vascular calcifications are present. 7. Suggestion of mildly enlarged subcarinal lymph node. POS: [facility]
[2019-11-05] MEDS: Labetalol HCl 100 MG/20 ML VIAL SLOW IVP PRN (21:30)
[2019-11-06] MEDS: traMADol HCl 50 MG TAB PO SCH (00:20)
[2019-11-06] MEDS: Ibuprofen 800 MG TAB PO SCH (00:20)
[2019-11-06] MEDS: Acetaminophen 325 MG TAB PO SCH ×3 (00:20→23:44)
[2019-11-06] MEDS: hydrALAZINE 20 MG/ML VIAL SLOW IVP PRN (00:28)
[2019-11-06] MEDS: Labetalol HCl 100 MG/20 ML VIAL SLOW IVP PRN (02:04)
[2019-11-06] MEDS ORDERED: OLANZapine 10 MG VIAL IM PRN (02:25)
[2019-11-06] MEDS ORDERED: Sterile Water 10 ML VIAL FS PRN (02:27)
[2019-11-06] MEDS ORDERED: Rib Fracture Protocol IV SCH (02:30)
[2019-11-06] MEDS: cloNIDine 0.1 MG TAB PO SCH ×4 (02:40→20:45)
[2019-11-06 03:22] LABS: Anion Gap 11 mmol/L (10-20); BUN (Urea Nitrogen) 31 mg/dL (9.8-20.1); Calc. Creatinine Clearance 62 mL/min (70-130); Calcium 9.3 mg/dL (7.8-10.44); Carbon Dioxide 24 mmol/L (22-29); Chloride 111 mmol/L (98-107); Estimated GFR-MDRD 69; Glucose 149 mg/dL (70-105); Magnesium 1.8 mg/dL (1.6-2.6); Phosphorus 2.3 mg/dL (2.3-4.7); Potassium 3.9 mmol/L (3.5-5.1); Sodium 142 mmol/L (136-145)
[2019-11-06] MEDS: Ketorolac Tromethamine 30 MG/ML VIAL IVP SCH ×4 (05:53→23:44)
[2019-11-06] MEDS: Acetaminophen 650 MG Suppository PR SCH ×2 (05:56→12:20)
--- NOTE | 2019-11-06 08:04 | PRG ---
DATE OF SERVICE: 11/05/2019 SUBJECTIVE: Ms. Galloway is a 59-year-old female, status post ground level fall. She sustained left rib fracture, left hemothorax, and pneumothorax with no signs of respiratory distress. History of polysubstance abuse, benzodiazepine overdose, acute psychosis, history of depression, acute kidney injury, prerenal. The patient's psychosis picture is , unable to carry clear conversation. She has no complaint of any pain or she developed no fever or shortness of breath. Currently, the patient lying in bed, alert and awake, but appears to have psychosis episode including hallucination, delusion, and [facility]. Speech is fast and has a little meaning. Skin is pink and moist. Vital signs; temperature 98 and heart rate is 90 BP 170/90. Lung clear bilaterally Heart regular rate and rhythm Abdominal soft non distended Assessment: status psot fall L rib fracture Psychosis substance abuse Plan : Supportive care Pain control Anti psychosis DVT prophylaxis Job ID: [id number] MTDD
--- NOTE | 2019-11-06 08:32 | RAD ---
Chest AP view INDICATION: Left-sided pneumothorax COMPARISON: November 05, 2019 FINDINGS: Lungs:There are new airspace opacities within the left midlung, left lower lobe and right lung base w hich are new. No pneumothorax is evident. Cardiac silhouette:Cardiomegaly is stable Pulmonary vasculature:Normal Pleural spaces:No pleural effusion or pneumothorax is demonstrated. Upper abdomen:No abnormality seen. Osseous structures: No acute osseous abnormality. Additional findings:Left chest wall subcutaneous emphysema persists. No definite pneumothorax is pres ent. IMPRESSION: No pneumothorax. New airspace opacity within the left midlung and both lower lobes. Some of this may be related to subsegmental atelectasis; however, developing pneumonia or aspiration is not excluded. Continued radiographic follow-up is recommended. Table cardiomegaly. Stable left chest wall subcutaneous emphysema.
[2019-11-06] MEDS ORDERED: Clopidogrel Bisulfate 75 MG TAB ONE ×2 (08:34→09:33)
[2019-11-06] MEDS ORDERED: Amlodipine 10 MG TAB PO SCH (09:00)
[2019-11-06] MEDS: Baclofen 10 MG TAB PO SCH ×3 (09:26→20:49)
[2019-11-06] MEDS: Bupropion 150 MG XL TAB PO SCH (09:26)
[2019-11-06] MEDS: Amlodipine 5 MG TAB PO SCH (09:27)
[2019-11-06] MEDS: Famotidine 20 MG TAB PO SCH ×2 (09:28→20:49)
[2019-11-06] MEDS: ALPRAZolam 0.5 MG TAB PO SCH ×3 (09:28→20:50)
[2019-11-06] MEDS: Carvedilol 6.25 MG TAB PO SCH ×2 (09:28→20:49)
[2019-11-06] MEDS: Senokot S 8.6-50 MG TAB PO SCH ×2 (09:28→20:49)
[2019-11-06] MEDS: Gabapentin 300 MG CAP PO SCH ×3 (09:28→20:49)
[2019-11-06] MEDS: Escitalopram Oxalate 20 mg Tablet PO SCH (09:28)
[2019-11-06] MEDS: Polyethylene Glycol 3350 17 GM Packet PO SCH (09:30)
--- NOTE | 2019-11-06 15:22 | PRG ---
DATE OF SERVICE: 11/06/2019 SUBJECTIVE: Ms. Galloway is a 59-year-old female, who was seen in [facility], presented after a fall at home. She had left rib fractures 6 through 8. She is hospital day #2. CT chest yesterday demonstrated trace retained left pneumothorax. Her SpO2 is stable. Yesterday, she was having profound visual and auditory hallucination. She had word salad. This is grossly improved. She has decided to take some of her meals today. I have ordered chest x-ray that does not show a pneumothorax today. She remains hemodynamically stable. She is on nasal cannula oxygen at 4 L, we have turned this down to 2 L. we are trying to wean her off. [facility] was consulted and they are seeing the patient. We appreciate their assistance. Her creatinine continues to improve today. The patient does have food at the bedside and she is willing to eat. SUBJECTIVE: VITAL SIGNS: Temperature is 98.8, blood pressure 158/80, heart rate is 106, respiratory rate is 22, and saturating 94% on 2 L of oxygen nasal cannula. GENERAL: This is a 59-year-old female sitting up in bed with multiple providers around. No acute distress. HEENT: Normocephalic and atraumatic. Trachea is midline. No JVD is appreciated. RESPIRATORY: Equal rise and fall. Bilateral breath sounds. Clear to auscultation in upper and lower lobes bilaterally. Slight pain to the left chest on palpation. CARDIOVASCULAR: Regular rate and rhythm. ABDOMEN: Soft and nontender. Pelvis is stable. PSYCH: She is impulsive. Somewhat paranoid. No hallucinations noted today. NEURO: Alert and oriented to person, place, time, and event. MUSCULOSKELETAL: She moves extremities well. LABORATORY DATA: Diagnostic criteria from today, sodium is 142, potassium is 3.9, chloride is 111, CO2 is 24, BUN is 31, creatinine is 0.84, glucose 149, magnesium is 1.8, phos is 2.3, and calcium is 9.3. Chest x-ray shows no pneumothorax, possible atelectasis in the left. ASSESSMENT: 1. Rib fractures on the left 6 through 8. 2. Left pneumothorax. 3. History of polysubstance abuse. 4. Acute psychosis, improving. 5. Acute kidney injury, resolved. 6. Ground level fall, acute traumatic pain. PLAN: 1. Wean oxygen down as the patient is not on any oxygen at home. 2. No indication for chest tube placement. 3. Continue IS and splinting with pillow. 4. Pain regimen as needed with the rib protocol. 5. Continue bowel regimen. 6. Transfer out of [facility]. 7. I have encouraged the patient to be compliant with her pills including her antipsychotics. She has verbalized understanding. 8. PT, OT eval. 9. [facility] is evaluating. Anticipate discharge to psych facility. 10. If the patient is able to be weaned off oxygen, remains hemodynamically stable throughout the day. She from a medical standpoint can be discharged to her [facility] facility. 11. We will transfer her to the surgery ray. 12. I have updated the patient. There are no family at the bedside. I have answered all questions. The patient was seen by Dr. Maikel Matos. This plan can be updated as needed. Job ID: [id number]
[2019-11-06] MEDS: Nicotine 14 MG PATCH TD SCH (15:55)
[2019-11-06 22:05] LABS: Base Excess (BEa) -0.6 mEq/L (-2.0 to +3.0); CO2 Tension 34.6 mmHg (35.0-45.0); Calcium, Ionized 1.17 mmol/L (1.12-1.30); Carboxyhemoglobin (COHb) 1.3 gm% (0.0-3.0); Hemoglobin (Hb) 11.7 g/dL (12.0-16.0); Potassium - ABG Lab 4.25 mmol/L (3.70-5.30); pH, Arterial 7.44 (7.35-7.45)
--- NOTE | 2019-11-06 23:17 | PRG ---
DATE OF SERVICE: 11/06/2019 TIME SEEN: Approximately 2140 hours. SUBJECTIVE: Ms. Galloway was transferred to the surgery ray reported to be sleepy, discussed with MAYI mcfadden and bedside RN. She states that her SpO2 went down. She is now on 3 L of oxygen. It is hanging out in the upper 80s and she is sleeping in the 90s when she is awake. She did tolerate a little bit of her diet today, has agreed to take all of her medications. The pain seems to be under control. She has been afebrile this evening. However, when I went to evaluate her at the bedside , it was difficult to wake her up and use a jaw thrust. She would finally open her eyes and go to sleep easily. Her SpO2 was in the low 80s. I increased her oxygen to 6 L/minute via nasal cannula. She has strong pulses. Blood pressure is stable. Heart rate is stable. She will open her eyes at times and follows some commands. PHYSICAL EXAMINATION: VITAL SIGNS: Currently temperature is 97.6, blood pressure 109/70, breathing 24 times per minute, she is saturating 84 on 3 L oxygen nasal cannula. She is now saturating 88 on 6 L oxygen nasal cannula. However, she does appear to be mouth breathing mostly. Lung sounds are congested. Slight tachypnea is noted with rhonchi reported in the upper airways. PLAN: 1. This evening, we will order an ABG. 2. BiPAP therapy. 3. Discussed with RT. 4. Given additional breathing treatment. 5. Maintain SpO2 greater than 92%. 6. We will suspend sedating medication including Xanax for tonight. 7. We will follow up the patient after ABG and BiPAP to evaluate for any distress. 8. We will get a.m. labs. Consider further intervention, if the patient does not grossly improve. It could be medication induced. I have also discussed the as she was nearly acutely psychotic the day before along with her medications. It could just be in a deep sleep; however, we do need to maintain her oxygenation level. Job ID: [id number] ABG shows compensated state with hypoxia noted. No CO2 retention, no acidosis. Bipap is now applied, repeat exam shows MV 10-12 L. She is on 10/02 BUR 15, Fio2 0.5. Spo2 is 92%. D/w RN d/w RT Ct. nebs, a/a and budesonide. f/u cxr in am. MTDD
[2019-11-07 00:56] LABS: Puncture Site LRA
[2019-11-07] MEDS: cloNIDine 0.1 MG TAB PO SCH ×2 (03:15→08:25)
[2019-11-07] MEDS: Acetaminophen 325 MG TAB PO SCH ×3 (05:29→17:32)
[2019-11-07] MEDS: Ketorolac Tromethamine 30 MG/ML VIAL IVP SCH (05:30)
[2019-11-07] MEDS ORDERED: Cyclobenzaprine 10 MG TAB PO PRN (07:10)
[2019-11-07] MEDS ORDERED: ALPRAZolam 1 MG TAB PO PRN (07:14)
[2019-11-07 08:17] LABS: Hemoglobin 13.3 g/dL (12.0-16.0); Mean Corpuscular HGB CONC 32.7 g/dL (32.0-36.0); Mean Corpuscular Hemoglobin 30.4 pg (27.0-31.0); Mean Corpuscular Volume 93.1 fL (78.0-98.0); Mean Platelet Volume 9.4 fL (7.4-10.4); Platelet Count 174 thou/uL (130-400); RBC Distribution Width 14.4 % (11.5-14.5); Red Blood Cell (RBC) Count 4.36 mill/uL (4.20-5.40); White Blood Cell (WBC) Count 8.7 thou/uL (4.8-10.8)
--- NOTE | 2019-11-07 08:22 | RAD ---
Portable frontal chest radiograph: 11/07/2019 COMPARISON: 11/06/2019 HISTORY: Reevaluate left-sided pneumothorax FINDINGS: No discrete pneumothorax is noted on the left. There is subcutaneous emphysema involving th e lateral inferior left chest wall, stable. There are multiple displaced lateral left-sided rib fractures. There is nonspecific hazy interstitial and alveolar opacity within the lateral aspect of t he mid left lung zone, the medial left base, the medial right base, in the right upper lobe region. There is focal opacity in the infrahilar region on the right. Heart and mediastinal contours are stab le. IMPRESSION: No pneumothorax noted. Multiple left-sided rib fractures. Interstitial and alveolar opaci ty noted bilaterally, nonspecific. Follow-up imaging advised to document resolution.
[2019-11-07] MEDS: Bupropion 150 MG XL TAB PO SCH (08:25)
[2019-11-07] MEDS: Polyethylene Glycol 3350 17 GM Packet PO SCH (08:25)
[2019-11-07] MEDS: Baclofen 10 MG TAB PO SCH (08:25)
[2019-11-07] MEDS: Escitalopram Oxalate 20 mg Tablet PO SCH ×2 (08:26→10:17)
[2019-11-07] MEDS: OLANZapine 5 MG TAB PO SCH (08:26)
[2019-11-07] MEDS: Carvedilol 6.25 MG TAB PO SCH ×2 (08:26→22:54)
[2019-11-07] MEDS: Senokot S 8.6-50 MG TAB PO SCH ×2 (08:26→22:57)
[2019-11-07] MEDS: Amlodipine 5 MG TAB PO SCH (08:26)
[2019-11-07] MEDS: Famotidine 20 MG TAB PO SCH (08:27)
[2019-11-07 08:36] LABS: Anion Gap 12 mmol/L (10-20); BUN (Urea Nitrogen) 53 mg/dL (9.8-20.1); Calc. Creatinine Clearance 36 mL/min (70-130); Calcium 9.2 mg/dL (7.8-10.44); Carbon Dioxide 23 mmol/L (22-29); Chloride 103 mmol/L (98-107); Estimated GFR-MDRD 37; Glucose 132 mg/dL (70-105); Magnesium 1.8 mg/dL (1.6-2.6); Potassium 4.3 mmol/L (3.5-5.1); Sodium 134 mmol/L (136-145)
[2019-11-07 08:37] LABS: Band 27 % (5-11); Eosinophils 1 % (0-10); Lymphocytes 9 % (21-51); MDiff Complete? YES; Metamyelocyte 1 % (0-0); Monocytes 4 % (0-10); Neutrophil 57 % (42-75); RBC Morphology Normal
[2019-11-07] MEDS ORDERED: Enoxaparin Sodium 40 MG/0.4 ML SYRINGE SC SCH (09:00)
[2019-11-07] MEDS ORDERED: OLANZapine 5 MG TAB PO SCH (09:00)
[2019-11-07] MEDS ORDERED: Bacteriostatic Water 30 ML VIAL FS PRN (09:15)
[2019-11-07 10:23] LABS: Actual Bicarbonate (HCO3a) 21.9 mEq/L (22-28); Base Excess (BEa) -1.9 mEq/L (-2.0 to +3.0); CO2 Tension 34.1 mmHg (35.0-45.0); Calcium, Ionized 1.18 mmol/L (1.12-1.30); Carboxyhemoglobin (COHb) 0.7 gm% (0.0-3.0); Hemoglobin (Hb) 11.8 g/dL (12.0-16.0); O2 Tension (PaO2) 66.7 mmHg (80.0-100.0); Potassium - ABG Lab 4.53 mmol/L (3.70-5.30); pH, Arterial 7.43 (7.35-7.45)
[2019-11-07 10:24] LABS: ALV-art Gradient 282.825 (0-20); Puncture Site RRA
[2019-11-07] MEDS: Insulin Regular 300 UNITS/3 ML VIAL SC PRN ×2 (11:00→18:02)
[2019-11-07] MEDS: methylPREDNISolone Sod Succ 40 MG VIAL IVP SCH ×3 (11:01→22:57)
[2019-11-07] MEDS: Sodium Chloride 0.9% 1,000 ML IV SCH ×3 (11:01→16:08)
[2019-11-07] MEDS ORDERED: methylPREDNISolone Sod Succ/PF 125 MG/2 ML VIAL IVP SCH (12:00)
[2019-11-07] MEDS: Ibuprofen 600 MG TAB PO SCH ×2 (12:14→17:33)
[2019-11-07 12:35] LABS: ALT (SGPT) 29 U/L (8-55); AST (SGOT) 36 U/L (5-34); Albumin 2.9 g/dL (3.5-5.0); Alkaline Phosphatase 80 U/L (40-110); Anion Gap 10 mmol/L (10-20); BUN (Urea Nitrogen) 58 mg/dL (9.8-20.1); Bilirubin, Total 1.3 mg/dL (0.2-1.2); Calc. Creatinine Clearance 30 mL/min (70-130); Carbon Dioxide 25 mmol/L (22-29); Chloride 103 mmol/L (98-107); Estimated GFR-MDRD 30; Globulin 3.8 g/dL (2.4-3.5); Glucose 124 mg/dL (70-105); Potassium 4.4 mmol/L (3.5-5.1); Protein, Total 6.7 g/dL (6.0-8.3); Sodium 134 mmol/L (136-145)
--- NOTE | 2019-11-07 15:02 | PRG ---
DATE OF SERVICE: 11/07/2019 SUBJECTIVE: Ms. Galloway is a 59-year-old female, who is status post ground level fall with left rib fracture from 6 through 8, left pneumothorax stable, history of substance abuse, psychosis. The patient currently on the surgical floor, and the patient suffered from drowsiness and not easy to appear arouse. Her psychosis improved. Her vital signs stable. She continued to use BiPAP for respiratory distress. She has not eaten much and drink limited water. OBJECTIVE: GENERAL: The patient lying down in bed, using BiPAP at the moment, cooperative, and drowsy. VITAL SIGNS: Temperature 99, heart rate 71, respiratory rate 18, O2 saturation 98% on BiPAP, and blood pressure 96/59. LUNGS: Rales bilaterally. HEART: Regular rate and rhythm. ABDOMEN: Soft and nondistended. EXTREMITIES: Neurovascularly intact x4. NEUROLOGY: Difficult to assess due to the patient not be in arouse enough. LABORATORY DATA: Today shows white count 8.7, hemoglobin 13.3, which is normal range. Sodium 134, potassium 4.4, creatinine 1.73. Total bilirubin is 1.3, AST 36, ammonia is normal range 35, and cortisol level 54. ASSESSMENT: 1. Status post ground level fall. 2. Left rib fracture, left pneumothorax stable on conservative treatment, acute psychosis, respiratory distress, possibly pulmonary contusion, history of substance abuse, possibly withdrawal syndrome. PLAN: Continue supportive care. Continue BiPAP. Continue DVT prophylaxis. We will adjust psych medication for facilitate arousing. We will need to stop PPN due to the patient unable to intact p.o. We will recheck BMP tomorrow and CBC. The patient was seen and evaluated with Dr. Matos on round this morning. Job ID: [id number]
--- NOTE | 2019-11-07 15:05 | CT ---
Head CT without contrast 11/07/2019: COMPARISON: 11/04/2019 HISTORY: Evaluate following CODE BLUE TECHNIQUE: Axial CT imaging at 5 mm intervals from vertex through skull base without contrast FINDINGS: The visualized paranasal sinuses and mastoid air cells are well aerated. No displaced vaishnavi rial fracture. There is atherosclerotic calcification of the cavernous carotid arteries. No intracranial hemorrhage, midline shift, mass effect, or ventricular enlargement. IMPRESSION: No acute findings.
[2019-11-07] MEDS: Nicotine 14 MG PATCH TD SCH (16:32)
[2019-11-07] MEDS: Albuterol Sulfate 2.5 mg/3 ml Neb NEB SCH (19:25)
[2019-11-07] MEDS: Budesonide 0.5 MG/2 ML NEB INH SCH (19:26)
[2019-11-07 20:30] LABS: CKMB 4.6 ng/mL (0-6.6); Troponin I 0.175 ng/mL (< 0.028)
[2019-11-07] MEDS ORDERED: Sodium Chloride 0.9% 500 ML IV SCH (20:45)
[2019-11-07] MEDS ORDERED: Sodium Chloride 0.9% 1,000 ML IV SCH (20:45)
[2019-11-07] MEDS ORDERED: Baclofen 10 MG TAB PO SCH (21:00)
[2019-11-07 21:09] LABS: Anion Gap 15 mmol/L (10-20); BUN (Urea Nitrogen) 65 mg/dL (9.8-20.1); Calc. Creatinine Clearance 25 mL/min (70-130); Calcium 8.4 mg/dL (7.8-10.44); Carbon Dioxide 19 mmol/L (22-29); Chloride 108 mmol/L (98-107); Estimated GFR-MDRD 25; Glucose 171 mg/dL (70-105); Magnesium 1.9 mg/dL (1.6-2.6); Potassium 4.7 mmol/L (3.5-5.1); Sodium 137 mmol/L (136-145)
[2019-11-07 21:17] LABS: Phosphorus 4.3 mg/dL (2.3-4.7)
[2019-11-08 00:02] LABS: Troponin I 0.105 ng/mL (< 0.028)
[2019-11-08] MEDS: Acetaminophen 325 MG TAB PO SCH ×5 (00:25→23:49)
[2019-11-08] MEDS: Insulin Regular 300 UNITS/3 ML VIAL SC PRN ×2 (00:26→05:38)
[2019-11-08] MEDS: Ibuprofen 600 MG TAB PO SCH (00:29)
[2019-11-08] MEDS: Albuterol Sulfate 2.5 mg/3 ml Neb NEB SCH ×4 (01:05→18:50)
[2019-11-08] MEDS ORDERED: Furosemide 20 MG/2 ML VIAL SLOW IVP SCH ×2 (01:30→04:30)
--- NOTE | 2019-11-08 02:34 | PRG ---
DATE OF SERVICE: 11/08/2019 The patient is currently on the critical care unit. She was originally admitted for ground level fall, in which she sustained left rib fractures and a small left pneumothorax. She was doing well from that standpoint, but had an episode of altered mental status and decreased oxygenation leading her to be placed on BiPAP and move to the critical care unit. This evening, she remains on BiPAP, which she is tolerating. She is still difficult to awaken, but I was able to, on 2 separate occasions, awaken her and have her follow very simple commands such as take a deep breath and squeeze my hands. Though the patient tonight had become bradycardic, but does maintain her blood pressure with a mask greater than 65. She has been given fluid boluses and albumin in order to increase her urinary output. The patient is tolerating her tube feeds. PHYSICAL EXAMINATION: VITAL SIGNS: Blood pressure 94/59, heart rate 42, respirations 17, oxygen saturation is 98% on BiPAP with FiO2 of 50%. LUNGS: Clear bilaterally. HEART: Regular rate and rhythm with bradycardia. ABDOMEN: Soft and nondistended with hypoactive bowel sounds. EXTREMITIES: Patient does move all 4 extremities. Fallon Coma Scale is E2, V5, M6. The patient when awake will ask questions and stated to the nurses "why did you wake me up." LABORATORY DATA: This evening shows sodium 137, potassium 4.7, chloride 108, CO2 of 19, BUN 65, creatinine 2.05, glucose 171, phosphorus 4.3, magnesium 1.9. Troponin 0.175 with a repeat of 0.105. BNP 180. ASSESSMENT/PLAN: 1. Status post ground level fall. 2. Left rib fractures, left pneumothorax. 3. History of substance abuse. PLAN: Will be to continue close monitoring. If the patient's blood pressure begins to dwindle or the patient becomes any further bradycardic, the patient will likely require central line and arterial line to monitor her blood pressure and begin pharmacological support. We will repeat her labs in the morning. Repeat her chest x-ray and continue to re-evaluate. Job ID: [id number]
[2019-11-08 04:00] LABS: Anion Gap 12 mmol/L (10-20); BUN (Urea Nitrogen) 72 mg/dL (9.8-20.1); Calc. Creatinine Clearance 26 mL/min (70-130); Calcium 8.4 mg/dL (7.8-10.44); Carbon Dioxide 19 mmol/L (22-29); Chloride 110 mmol/L (98-107); Estimated GFR-MDRD 25; Glucose 165 mg/dL (70-105); Magnesium 1.9 mg/dL (1.6-2.6); Phosphorus 4.5 mg/dL (2.3-4.7); Potassium 4.4 mmol/L (3.5-5.1); Sodium 137 mmol/L (136-145)
[2019-11-08] MEDS: methylPREDNISolone Sod Succ 40 MG VIAL IVP SCH (04:30)
[2019-11-08] MEDS: Lactated Ringer's 1,000 ML IV SCH ×3 (04:30→23:45)
[2019-11-08 04:44] LABS: Band 20 % (5-11); Hemoglobin 10.7 g/dL (12.0-16.0); Lymphocytes 15 % (21-51); MDiff Complete? YES; Mean Corpuscular HGB CONC 32.4 g/dL (32.0-36.0); Mean Corpuscular Hemoglobin 30.7 pg (27.0-31.0); Mean Corpuscular Volume 94.8 fL (78.0-98.0); Mean Platelet Volume 9.8 fL (7.4-10.4); Metamyelocyte 2 % (0-0); Monocytes 4 % (0-10); Neutrophil 59 % (42-75); Platelet Count 116 thou/uL (130-400); Platelet Morphology Comment Appears Decreased; RBC Distribution Width 14.2 % (11.5-14.5); RBC Morphology Normal; Red Blood Cell (RBC) Count 3.48 mill/uL (4.20-5.40); White Blood Cell (WBC) Count 4.4 thou/uL (4.8-10.8)
[2019-11-08] MEDS: Budesonide 0.5 MG/2 ML NEB INH SCH ×2 (07:04→18:51)
[2019-11-08] MEDS: Amlodipine 5 MG TAB PO SCH (07:14)
[2019-11-08] MEDS: Bupropion 150 MG XL TAB PO SCH (07:14)
[2019-11-08] MEDS: Escitalopram Oxalate 20 mg Tablet PO SCH (07:15)
[2019-11-08] MEDS: Carvedilol 6.25 MG TAB PO SCH ×2 (07:15→20:24)
--- NOTE | 2019-11-08 08:16 | RAD ---
XR Chest 1 View Portable History: Respiratory failure follow-up Comparison: Radiograph prior day Findings: Slight increased confluence right upper lobe airspace consolidation as well as lower lobe c onsolidation. Enteric tube tip low diaphragm although out of field of view. Multiple displaced left-sided rib fractures are similar. No significant pneumothorax. Subcutaneous emphysema slightly im proving. Impression: Evolution of hemorrhagic pulmonary contusions.
[2019-11-08] MEDS: Famotidine 20 MG TAB PO SCH (08:43)
[2019-11-08] MEDS: Piperacillin/Tazobactam 3.375 GM in Sodium Chloride 0.9% 100 ML IVPB SCH ×2 (08:53→15:22)
[2019-11-08] MEDS ORDERED: Baclofen 10 MG TAB PO SCH (09:00)
[2019-11-08 09:13] LABS: Lactic Acid 1.8 mmol/L (0.5-2.2)
[2019-11-08 09:14] LABS: INR-International Normal Ratio 1.2; PTT 35.7 SEC (22.9-36.1); Prothrombin Time 15.1 SEC (12.0-14.7)
[2019-11-08] MEDS: Senokot S 8.6-50 MG TAB PO SCH ×2 (11:06→20:23)
[2019-11-08] MEDS: Enoxaparin Sodium 30 MG/0.3 ML SYRINGE SC SCH (11:16)
[2019-11-08] MEDS: Polyethylene Glycol 3350 17 GM Packet PO SCH (11:16)
[2019-11-08] MEDS: Nicotine 14 MG PATCH TD SCH (18:09)
[2019-11-09] MEDS: Albuterol Sulfate 2.5 mg/3 ml Neb NEB SCH ×5 (01:12→19:21)
[2019-11-09] MEDS: hydrALAZINE 20 MG/ML VIAL SLOW IVP PRN ×2 (04:24→23:35)
--- NOTE | 2019-11-09 05:12 | PRG ---
DATE OF SERVICE: 11/09/2019 SUBJECTIVE: The patient remains in the critical care unit. She is status post ground level fall, when she sustained left-sided rib fractures and a small left pneumothorax. She had been doing well from that standpoint, though she did require BiPAP last night due to extreme somnolence and difficulty awakening throughout the day. This has improved this evening. OBJECTIVE: GENERAL: On my exam, she was much improved. She was appropriate and talkative. She awakened with very little stimuli tonight. VITAL SIGNS: Her vital signs have improved. She has not been tachycardic, and her blood pressures have been above 100 systolic. She is tolerating her tube feeds and if possible, we may be able to discontinue these tomorrow. ASSESSMENT: 1. Status post ground level fall. 2. Left-sided rib fractures, left pneumothorax, stable. 3. History of substance abuse. PLAN: Plan will be to continue supportive care, assess ability to take orals tomorrow in hopes of discontinuing her tube feeds. Encourage physical and occupational therapy and possibly move off the critical care unit within the next 24 hours. Job ID: [id number]
[2019-11-09] MEDS: Acetaminophen 325 MG TAB PO SCH ×4 (05:25→23:18)
[2019-11-09] MEDS: Budesonide 0.5 MG/2 ML NEB INH SCH ×2 (06:54→19:04)
[2019-11-09] MEDS: Amlodipine 5 MG TAB PO SCH (09:18)
[2019-11-09] MEDS: Carvedilol 6.25 MG TAB PO SCH ×2 (09:19→20:27)
[2019-11-09] MEDS: Escitalopram Oxalate 20 mg Tablet PO SCH (09:19)
[2019-11-09] MEDS: Bupropion 150 MG XL TAB PO SCH (09:19)
[2019-11-09] MEDS: Polyethylene Glycol 3350 17 GM Packet PO SCH (09:20)
[2019-11-09] MEDS: Famotidine 20 MG TAB PO SCH (09:20)
[2019-11-09] MEDS: Furosemide 20 MG TAB PO SCH ×2 (09:20→20:27)
[2019-11-09] MEDS: Enoxaparin Sodium 30 MG/0.3 ML SYRINGE SC SCH (09:20)
[2019-11-09] MEDS: Senokot S 8.6-50 MG TAB PO SCH ×2 (09:21→20:27)
--- NOTE | 2019-11-09 12:56 | PRG ---
DATE OF SERVICE: 11/09/2019 SUBJECTIVE: Ms. Galloway is a 59-year-old female, status post ground level fall, left-sided rib fracture, left pneumothorax, have been stable; history of substance abuse and psychosis. The patient currently in critical illness, seen yesterday. The patient's mental status improved. She is more alert and awake and talking in full sentences. Her respiratory distress resolved. Her vital signs are stable. She is able to tolerate with clear liquid diet. Currently, the patient is lying down in bed comfortable with no acute respiratory distress. OBJECTIVE: VITAL SIGNS: Temperature is 98.2, heart rate 78, blood pressure 179/97, respiratory rate 20, O2 saturation 96% on 2 L. GENERAL: The patient is alert and awake. GCS 15. LUNGS: Clear bilaterally. HEART: Regular rate and rhythm. ABDOMEN: Soft and nondistended. EXTREMITIES: Neurovascularly intact x4. NEUROLOGIC: No focal neurology deficits. ASSESSMENT: 1. Status post ground level fall. 2. Left rib fracture, left pneumothorax, stable. 3. Psychosis, history of multiple substance abuse, improved. PLAN: Plan will be to continue supportive care. Continue pain control. We will advance diet and the patient will be transferred to the floor today. Continue DVT prophylaxis. We will consult with Physical Therapy if the patient is able to go home tomorrow. Job ID: [id number]
[2019-11-09] MEDS: Nicotine 14 MG PATCH TD SCH (17:48)
[2019-11-10] MEDS: Amlodipine 5 MG TAB PO SCH (01:29)
--- NOTE | 2019-11-10 02:25 | PRG ---
DATE OF SERVICE: 11/10/2019 SUBJECTIVE: The patient is currently on the surgical floor. She has been moved up from the critical care unit today. She has remained stable regarding her vital signs and her mentation has improved, and she is able to take in oral nutrition, so her feeding tube has been discontinued. PHYSICAL EXAMINATION: VITAL SIGNS: Stable though the patient is now having episodes of hypertension. We will resume her blood pressure medications. She has been afebrile. GENERAL: The patient is currently asleep in bed. She appears in no discomfort and her respirations appear nonlabored. By report, the patient had a better day again today. Unfortunately, that she was not able to work with therapy as they needed a new consult, which has been placed. ASSESSMENT: 1. Status post ground level fall. 2. Left-sided rib fractures, left pneumothorax, stable. PLAN: Plan will be to continue supportive care. Encourage physical and occupational therapy and discuss placement options tomorrow. Job ID: [id number]
[2019-11-10] MEDS ORDERED: Lorazepam 2 MG/ML VIAL SLOW IVP SCH (02:30)
[2019-11-10] MEDS: hydrALAZINE 20 MG/ML VIAL SLOW IVP PRN ×2 (03:39→14:47)
[2019-11-10] MEDS: Acetaminophen 325 MG TAB PO SCH ×3 (05:24→18:12)
[2019-11-10] MEDS: Carvedilol 6.25 MG TAB PO SCH ×2 (06:22→19:58)
[2019-11-10] MEDS: Furosemide 20 MG TAB PO SCH ×2 (06:23→19:58)
[2019-11-10] MEDS: Albuterol Sulfate 2.5 mg/3 ml Neb NEB SCH ×3 (08:21→18:41)
[2019-11-10] MEDS: Budesonide 0.5 MG/2 ML NEB INH SCH ×2 (08:21→18:41)
[2019-11-10] MEDS: OLANZapine 5 MG TAB PO SCH (08:28)
[2019-11-10] MEDS: Escitalopram Oxalate 20 mg Tablet PO SCH (08:28)
[2019-11-10] MEDS: Bupropion 150 MG XL TAB PO SCH (08:28)
[2019-11-10] MEDS: Senokot S 8.6-50 MG TAB PO SCH ×2 (08:29→19:58)
[2019-11-10] MEDS: Polyethylene Glycol 3350 17 GM Packet PO SCH (08:29)
[2019-11-10] MEDS: Enoxaparin Sodium 30 MG/0.3 ML SYRINGE SC SCH (09:36)
--- NOTE | 2019-11-10 10:43 | PRG ---
DATE OF SERVICE: 11/08/2019 SUBJECTIVE: Ms. Galloway is a 59-year-old female status post ground level fall with left rib fracture, left pneumothorax stable, history of substance abuse, and psychosis. Yesterday, the patient was in deep sedation and unresponsive. The patient was code blue but change to code green due to the patient was aroused with aggressive stimulation. The patient was transferred to ICU for followup BiPAP and tube feedings. This morning, the patient is more alert. She responds to stimulation, opens her eye with voice command, attempt to move all of her 4 extremities. OBJECTIVE: VITAL SIGNS: This morning is stable. Heart rate is in the 60 range. Blood pressure 120. O2 saturation is 99 on 4 L. GENERAL: Currently, the patient lying down in bed. Still sedated. Minimal interaction Moves all her extremities. Breathing nonlabored. LUNGS: Rale bilaterally. HEART: Regular rate and rhythm. ABDOMEN: Soft and nondistended. EXTREMITY: Neurovascular intact x4. NEUROLOGY: Difficult to assess due to her sedation status. LABORATORY DATA: This morning, white count show 4.4 and hemoglobin 10.7. Sodium 137, potassium 4.4, lactic acid 1.8, and magnesium 1.9. Chest x-ray show hemorrhagic pulmonary contusion. ASSESSMENT: 1. Status post ground level fall. 2. Left rib fracture. 3. Left pulmonary contusion. 4. History of psychosis currently at sedation state, suspicion of medication side effect or stunning psychosis, history of polysubstance abuse. PLAN: Plan will be continue supportive care. Continue pain control. Continue to monitor kidney function. Hold all sedation medication. The patient will notify Dr. Matos via the phone this morning, who agree with treatment plan. Job ID: [id number] MTDD
[2019-11-10 11:25] LABS: Anion Gap 15 mmol/L (10-20); BUN (Urea Nitrogen) 57 mg/dL (9.8-20.1); Calc. Creatinine Clearance 58 mL/min (70-130); Calcium 9.7 mg/dL (7.8-10.44); Carbon Dioxide 22 mmol/L (22-29); Chloride 104 mmol/L (98-107); Estimated GFR-MDRD 53; Glucose 125 mg/dL (70-105); Magnesium 1.8 mg/dL (1.6-2.6); Phosphorus 2.8 mg/dL (2.3-4.7); Potassium 3.6 mmol/L (3.5-5.1); Sodium 137 mmol/L (136-145)
[2019-11-10 13:08] VITALS: BMI 23.3
[2019-11-10] MEDS: Nicotine 14 MG PATCH TD SCH (16:07)
[2019-11-10] MEDS ORDERED: Haloperidol Lactate 5 MG/ML VIAL SLOW IVP SCH (16:45)
[2019-11-10] MEDS ORDERED: Labetalol HCl 100 MG/20 ML VIAL SLOW IVP SCH (18:15)
[2019-11-11] MEDS: Albuterol Sulfate 2.5 mg/3 ml Neb NEB SCH ×4 (00:16→19:02)
[2019-11-11] MEDS: Acetaminophen 325 MG TAB PO SCH ×5 (00:19→23:11)
--- NOTE | 2019-11-11 00:30 | PRG ---
DATE OF SERVICE: SUBJECTIVE: The patient is currently on the surgical floor. She was admitted status post ground level fall, in which she sustained left-sided rib fractures and left pneumothorax. She is currently awaiting placement in [facility]. Unfortunately, she had an episode of hypertension this evening and they declined accepting her until her blood pressure was better controlled. We will ensure that she gets her medications tonight and hopefully she will be able to be discharged tomorrow morning. Otherwise, the patient's status is unchanged. Job ID: [id number]
[2019-11-11] MEDS: Amlodipine 5 MG TAB PO SCH (06:08)
[2019-11-11] MEDS: Carvedilol 6.25 MG TAB PO SCH ×2 (06:08→20:34)
[2019-11-11] MEDS ORDERED: Amlodipine 5 MG TAB PO SCH ×2 (08:15→22:45)
[2019-11-11] MEDS: Budesonide 0.5 MG/2 ML NEB INH SCH ×2 (08:35→19:03)
[2019-11-11] MEDS: Bupropion 150 MG XL TAB PO SCH (08:55)
[2019-11-11] MEDS: Senokot S 8.6-50 MG TAB PO SCH ×2 (08:56→20:34)
[2019-11-11] MEDS: Escitalopram Oxalate 20 mg Tablet PO SCH (08:56)
[2019-11-11] MEDS: OLANZapine 5 MG TAB PO SCH (08:56)
[2019-11-11] MEDS: Furosemide 20 MG TAB PO SCH ×2 (08:56→20:34)
[2019-11-11] MEDS: Enoxaparin Sodium 40 MG/0.4 ML SYRINGE SC SCH (08:57)
[2019-11-11] MEDS: Polyethylene Glycol 3350 17 GM Packet PO SCH (08:57)
[2019-11-11] MEDS ORDERED: ALPRAZolam 0.5 MG TAB PO SCH (09:45)
[2019-11-11] MEDS ORDERED: ALPRAZolam 1 MG TAB PO PRN (11:27)
[2019-11-11] MEDS: ALPRAZolam 0.5 MG TAB PO SCH ×2 (13:43→20:35)
[2019-11-11] MEDS: Nicotine 14 MG PATCH TD SCH (17:04)
[2019-11-11] MEDS: Sacubitril 49 MG/Valsartan 51 MG TABLET PO SCH (17:11)
[2019-11-11] MEDS ORDERED: traMADol HCl 50 MG TAB PO PRN ×2 (19:32)
--- NOTE | 2019-11-11 23:05 | PRG ---
DATE OF SERVICE: 11/11/2019 SUBJECTIVE: The patient was seen this evening during rounds, awake, alert, in no distress. The patient remains on the surgical floor. The patient was admitted for a ground level fall, in which she sustained multiple left rib fractures and a small left pneumothorax, which is stable. The patient is pending placement to [facility]. The patient denied acceptance to [facility]. The patient is now pending placement to [facility] in [place]. Staff reports that they want the patient's blood pressure to remain less than 160/90 three consecutive times before they will accept her tomorrow. PLAN: Plan will be to continue the patient's home medications and supportive care. The patient has been encouraged to use her incentive spirometer. The patient was only able to reach 1000 mL. Nursing staff has also been working with the patient using incentive spirometer. Job ID: [id number]
[2019-11-12] MEDS: Albuterol Sulfate 2.5 mg/3 ml Neb NEB SCH ×4 (02:07→18:45)
[2019-11-12] MEDS ORDERED: cloNIDine 0.2 MG TAB PO SCH (04:00)
[2019-11-12] MEDS: ALPRAZolam 0.5 MG TAB PO SCH ×3 (05:05→19:58)
[2019-11-12] MEDS: Acetaminophen 325 MG TAB PO SCH ×3 (05:05→17:36)
[2019-11-12] MEDS ORDERED: traMADol HCl 50 MG TAB PO PRN (06:50)
[2019-11-12] MEDS ORDERED: Gabapentin 300 MG CAP PO SCH ×2 (07:00→15:00)
[2019-11-12] MEDS ORDERED: Gabapentin 100 MG CAP PO SCH (08:07)
[2019-11-12] MEDS: Budesonide 0.5 MG/2 ML NEB INH SCH ×2 (08:30→18:45)
[2019-11-12] MEDS: Polyethylene Glycol 3350 17 GM Packet PO SCH (08:38)
[2019-11-12] MEDS: Sacubitril 49 MG/Valsartan 51 MG TABLET PO SCH ×2 (08:39→19:58)
[2019-11-12] MEDS: Bupropion 150 MG XL TAB PO SCH (08:40)
[2019-11-12] MEDS: Senokot S 8.6-50 MG TAB PO SCH ×2 (08:41→19:58)
[2019-11-12] MEDS: Carvedilol 6.25 MG TAB PO SCH ×2 (08:41→19:57)
[2019-11-12] MEDS: Furosemide 20 MG TAB PO SCH ×2 (08:42→19:58)
[2019-11-12] MEDS: OLANZapine 5 MG TAB PO SCH (08:43)
[2019-11-12] MEDS: Escitalopram Oxalate 20 mg Tablet PO SCH (08:43)
[2019-11-12] MEDS: Enoxaparin Sodium 40 MG/0.4 ML SYRINGE SC SCH (08:44)
--- NOTE | 2019-11-12 08:44 | DIS ---
DATE OF ADMISSION: 11/04/2019 DATE OF DISCHARGE: 11/12/2019 ADMISSION DIAGNOSES: 1. Fall. 2. Left ribs 6 through 8 fracture. 3. Left-sided pneumothorax. 4. Acute psychosis. DISCHARGE DIAGNOSES: 1. Fall. 2. Left ribs 6 through 8 fracture. 3. Left-sided pneumothorax. 4. Acute psychosis. 5. Acute kidney injury and respiratory distress. CONSULTING PHYSICIAN: None. PROCEDURES: None. HOSPITAL COURSE: The patient is a 59-year-old female presented to the emergency department and was found to have left-sided ribs 6 through 8 fractures and a left-sided pneumothorax. The patient also appeared to have acute psychosis. She does have a history of polysubstance abuse. There was no metabolic or traumatic reason for the patient's acute mental status changes. She was admitted to the Trauma Service. She received pain control and IV as well as p.o. antipsychotic medications. The patient did develop an acute kidney injury, received fluids which subsequently resolved. She did have an episode of respiratory distress and possible respiratory failure, however, was not intubated and soon was placed on BiPAP. At the time of discharge, the patient was on the regular nursing floor. She was voiding without difficulties. Pain was well controlled. The patient is still with intermittent psychosis. She was restarted on all of her home medications. There was initially some issues controlling the patient's hypertension. Once she was placed back on her home regimen of benzos and antihypertensives her blood pressure much improved. The patient was ultimately discharged to inpatient psych facility after being approved by [facility] when medically clear. DISCHARGE DISPOSITION: Inpatient [facility] Hospital. DISCHARGE CONDITION: Satisfactory. PHYSICAL EXAMINATION: VITAL SIGNS: Temperature 98.3, pulse 78, respirations 18, oxygen saturation 92 % on room air, and blood pressure 155/99. GENERAL: Well-appearing middle-aged female, lying in bed with no signs of acute distress. She is cooperative, but mildly resistant to speaking with us. PULMONARY: Equal chest rise and fall. Clear breath sounds bilaterally. No signs of acute respiratory distress. CARDIAC: Regular rate and rhythm. No murmurs, gallops, or rubs. GASTROINTESTINAL: Soft, nontender, and nondistended. EXTREMITIES: 2+ pulses in all extremities. Gross motor and sensation intact. No significant swelling noted. DISCHARGE INSTRUCTIONS: The patient was discharged to inpatient psychiatric hospital. She is activity as tolerated. She is on a heart healthy diet. She has no therapy needs. She will use incentive spirometer 10 to 15 times an hour while she is awake. DISCHARGE MEDICATIONS: Include 1. Tylenol. 2. Albuterol. 3. Norvasc. 4. Suboxone. 5. Wellbutrin. 6. Fioricet. 7. Carvedilol. 8. Lexapro. 9. Lasix. 10. Nicotine. 11. Zyprexa. 12. Protonix. 13. MiraLAX. 14. Entresto. 15. Senokot-S. 16. Tramadol. FOLLOWUP APPOINTMENTS: The patient will follow up with Dr. Matos in [facility] on November 20, 2019 at 10:30 a.m. She is to completed a chest x-ray before her followup. This is a summary of the patient's hospitalization. For full details, please see her medical record in its entirety. Job ID: [id number] MTDD
[2019-11-12] MEDS ORDERED: valACYclovir 500 MG TAB PO SCH (09:00)
[2019-11-12] MEDS ORDERED: Amlodipine 10 MG TAB PO SCH (09:00)
[2019-11-12] MEDS: traMADol HCl 50 MG TAB PO SCH ×2 (10:57→17:36)
[2019-11-12 11:07] LABS: Anion Gap 14 mmol/L (10-20); BUN (Urea Nitrogen) 27 mg/dL (9.8-20.1); Calc. Creatinine Clearance 80 mL/min (70-130); Calcium 8.7 mg/dL (7.8-10.44); Carbon Dioxide 24 mmol/L (22-29); Chloride 101 mmol/L (98-107); Estimated GFR-MDRD 78; Glucose 124 mg/dL (70-105); Magnesium 1.6 mg/dL (1.6-2.6); Potassium 3.4 mmol/L (3.5-5.1); Sodium 136 mmol/L (136-145)
[2019-11-12] MEDS ORDERED: Magnesium 2 GM/50 ML 2 GM in Premix Bag 1 BAG IVPB SCH (11:15)
[2019-11-12 13:21] LABS: Phosphorus 3.5 mg/dL (2.3-4.7)
[2019-11-12] MEDS ORDERED: PHOS-NAK 1 PKT PACK PO SCH (13:30)
[2019-11-12] MEDS: Gabapentin 100 MG CAP PO SCH ×2 (14:20→19:58)
--- NOTE | 2019-11-12 17:45 | EKG ---
Test Reason : Blood Pressure : / mmHG Vent. Rate : 060 BPM Atrial Rate : 060 BPM P-R Int : 120 ms QRS Dur : 088 ms QT Int : 510 ms P-R-T Axes : 044 036 037 degrees QTc Int : 510 ms Normal sinus rhythm with sinus arrhythmia Prolonged QT Abnormal ECG When compared with ECG of 04-NOV-2019 17:11, (Unconfirmed) T wave inversion no longer evident in Lateral leads Confirmed by DR. Yisel MARIE ([id number]) on 11/12/2019 5:44:46 PM Referred By: MEGHAN Confirmed By:DR. Yisel MARIE
--- NOTE | 2019-11-12 17:45 | EKG ---
Test Reason : HR Blood Pressure : / mmHG Vent. Rate : 042 BPM Atrial Rate : 042 BPM P-R Int : 132 ms QRS Dur : 090 ms QT Int : 560 ms P-R-T Axes : 044 030 037 degrees QTc Int : 467 ms Marked sinus bradycardia Abnormal ECG When compared with ECG of 07-NOV-2019 15:08, (Unconfirmed) QT has shortened Confirmed by DR. Yisel MARIE ([id number]) on 11/12/2019 5:45:24 PM Referred By: MAYI Confirmed By:DR. Yisel MARIE
[2019-11-12 19:59] VITALS: BP 120/70
[2019-11-12 20:09] VITALS: TEMP 98.4
[2019-11-12] MEDS ORDERED: Melatonin 3 MG TAB PO SCH (21:00)
[2019-11-12] MEDS ORDERED: Magnesium Oxide 400 MG TAB PO SCH (21:00)
--- NOTE | 2019-11-14 04:10 | PQF ---
ALAN BALDERRAMA [place] [id number] [facility]- B07 [id number] CLINICAL DOCUMENTATION CLARIFICATION FORM: POST DISCHARGE Addendum to original discharge summary date: ____ Late entry note date: __ DATE: 11/14/2019 ATTN: Cindy Astudillo Please exercise your independent, professional judgment in responding to the clarification form. Clinical indicators are provided on the bottom of this form for your review Please check appropriate box(s): [ x ] Acute Respiratory Failure: [ x] with Hypoxia[ ] with Hypercapnia [ ] Acute On Chronic Respiratory Failure: [ ] with Hypoxia [ ] with Hypercapnia [ ] Acute Respiratory Failure due to: (etiology) [ ] ARDS (Acute Respiratory Distress Syndrome) [ ] Chronic Respiratory Failure only [ ] with Hypoxia [ ] with Hypercapnia [ ] Hypoxia [ ] Other diagnosis [ ] Unable to determine In addition, please specify: Present on Admission (POA): [ ] Yes [ x ] No [ ] Unable to determine For continuity of documentation, please document condition throughout progress notes and discharge summary. Thank You. CLINICAL INDICATORS - SIGNS / SYMPTOMS / LABS PN p1 11/06 Chris CUELLAR transferred to the surgery ray reported to be sleepy, discussed with MAYI mcfadden and bedside RN. She states that her Sp02 went down. PN p1 11/06 Chris CUELLAR It is hanging out in the upper 80s and she is sleeping in the 90s when she is awake PN p1 11/06 Chris CUELLAR Her Sp02 was in the low 80s. I increased her oxygen to 6 Uminute via nasal cannula. PN p1 11/06 Chris CUELLAR Currently temperature is 97.6, blood pressure 109/70, breathing 24 times per minute, she is saturating 84 on 3 L oxygen nasal cannula. She is now saturating 88 on 6 L oxygen nasal cannula. DS p1 11/12 Wilda MAGALLON She did an episode of respiratory distress and possible respiratory failure RISK FACTORS DS p1 11/12 Left-Sided Pneumothorax DS p1 11/12 Left ribs fx DS p1 11/12 Respiratory distress TREATMENTS: Respiratory Panel 11/06 6 L of oxygen Respiratory Panel 11/07 BiPAP PN p1 11/06 - order an ABG PN p1 11/06 -Given additional breathing treatment (This form is maintained as a part of the permanent medical record) 2014 [employer] All Rights Reserved [email or web address] [not provided] MTDD
--- NOTE | 2019-11-14 04:13 | PQF ---
ALAN Lee [place], [place] [id number] [facility]- B07 [id number] CLINICAL DOCUMENTATION CLARIFICATION FORM: POST DISCHARGE Addendum to original discharge summary date: ____ Late entry note date: __ DATE:11/14/2019 ATTN: Cindy Astudillo Please exercise your independent, professional judgment in responding to the clarification form. Clinical indicators are provided on the bottom of this form for your review Please check appropriate box(s) to clarify if the following diagnosis has been ruled in or ruled out: Traumatic Spleenic Hematoma [ ] Ruled in diagnosis [ ] Continue to treat [ ] Resolved [ ] Ruled out diagnosis [ ] Cannot rule out diagnosis [ ] Other diagnosis [ x ] Unable to determine In addition, please specify: Present on Admission (POA): [ ] Yes [ ] No [ x ] Unable to determine For continuity of documentation, please document condition throughout progress notes and discharge summary. Thank You. CLINICAL INDICATORS - SIGNS / SYMPTOMS / LABS CT Abdomen p2 11/04 Impression: Subcapsular fluid collection involving the lateral margin of spleen. This may reflect subcapsular hematoma ED notes p10 / Pt with multiple rib fx, small left hemopneumothorax and large splenic hematoma H&P p1 11/04 Presented to ED after fall at home RISK FACTORS ED notes p10 / Splenic Hematoma ED notes p10 11/04 Hemopneumothorax TREATMENTS H&P p2 11/04 Admitted for pain control H&P p2 11/04 Fluid resuscitation (This form is maintained as a part of the permanent medical record) 2014 [employer]. All Rights Reserved [email or web address] [not provided] MTDD
--- NOTE | 2019-11-15 14:18 | EKG ---
Test Reason : Blood Pressure : / mmHG Vent. Rate : 078 BPM Atrial Rate : 078 BPM P-R Int : 112 ms QRS Dur : 080 ms QT Int : 426 ms P-R-T Axes : 041 014 073 degrees QTc Int : 485 ms Normal sinus rhythm Nonspecific T wave abnormality Abnormal ECG Confirmed by YARELIS NORTON DO ([id number]), news copy editor PERICO LLAMAS ([id number]) on 11/15/2019 2:17:35 PM Referred By: Confirmed By:YARELIS NORTON DO
== END 2019-11-12 21:40 | DRG 199 ==
LOC: ERS 14:52 → SURG A 22:03 → IMCU/EMU 11-05 18:50 → SURG B 11-06 16:38 → CCU 11-07 15:00 → SURG A 11-09 11:05
PROVIDERS: ADMIT Surgery; ATTEND Surgery
PROC: 5A09357 Assistance with Respiratory Ventilation, Less than 24 Consecutive Hours, Continuous Positive Airway Pressure (ICD-10-PCS; principal; 2019-11-07)
DX: S27.0XXA Traumatic pneumothorax, initial encounter (principal); J96.01 Acute respiratory failure with hypoxia; S22.42XA Multiple fractures of ribs, left side, initial encounter for closed fracture; F23 Brief psychotic disorder; N17.9 Acute kidney failure, unspecified; I10 Essential (primary) hypertension; F32.9 Major depressive disorder, single episode, unspecified; S27.2XXA Traumatic hemopneumothorax, initial encounter; E87.5 Hyperkalemia; F13.10 Sedative, hypnotic or anxiolytic abuse, uncomplicated; R00.1 Bradycardia, unspecified; W19.XXXA Unspecified fall, initial encounter; Y92.099 Unspecified place in other non-institutional residence as the place of occurrence of the external cause; Z90.710 Acquired absence of both cervix and uterus; Z79.899 Other long term (current) drug therapy
CPT/HCPCS: 36415; 36416; 51701; 70450; 71045; 71250; 74176; 80048; 80053; 80306; 80307; 81003; 81015; 82140; 82533; 82550; 82553; 82805; 83605; 83735; 83880; 84100; 84443; 84484; 85025; 85384; 85610; 85730; 87040; 93005; 93010; 93306; 94640; 94660; 96374; J0360; J1200; J1630; J1650; J1815; J1885; J1940; J2060; J2543; J2920; J3490; J7611; J7620; J7626; P9045

== ENCOUNTER 2019-12-07 17:39 | Emergency (ER) | payer OTHER ==
--- NOTE | 2019-12-07 19:13 | RAD ---
XR Humerus Lt [facility] Survey HISTORY: Fall, left arm pain FINDINGS: There is a mildly displaced fracture involving the proximal shaft of the left humerus.
[2019-12-07] MEDS ORDERED: HYDROcodone/Acetaminophen 10/325 mg Tablet ONE (19:16)
== END 2019-12-07 20:15 | disposition home or self-care (01) ==
LOC: ERS 17:39
DX: S42.202A Unspecified fracture of upper end of left humerus, initial encounter for closed fracture (principal); I10 Essential (primary) hypertension; M19.90 Unspecified osteoarthritis, unspecified site; F32.9 Major depressive disorder, single episode, unspecified; F17.200 Nicotine dependence, unspecified, uncomplicated; Z79.899 Other long term (current) drug therapy; W10.9XXA Fall (on) (from) unspecified stairs and steps, initial encounter

== ENCOUNTER 2020-05-25 11:20 | Outpatient (CLI) | payer OTHER ==
--- NOTE | 2020-05-25 11:40 | RAD ---
EXAM: 3 views of the right foot HISTORY: Foot pain COMPARISON: None FINDINGS: 3 views of the right foot shows a minimally displaced fracture of the second metatarsal. No soft tissue swelling is seen. Moderate great toe tarsometatarsal joint space narrowing and osteophyte formation is seen. IMPRESSION: 1. Second metatarsal fracture 2. 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
== END 2020-05-25 11:21 | disposition home or self-care (01) ==
LOC: BICRAD 11:20
PROVIDERS: ATTEND Family Medicine
DX: M79.671 Pain in right foot (principal); S92.321A Displaced fracture of second metatarsal bone, right foot, initial encounter for closed fracture; M19.071 Primary osteoarthritis, right ankle and foot

== ENCOUNTER 2021-01-24 18:09 | Inpatient (IN) | payer OTHER ==
[2021-01-24 19:23] LABS: #Lymphocytes 0.7 thou/uL (1.20-3.40); #Monocytes 0.3 thou/uL (0.11-0.59); #Neutrophils 2.3 thou/uL (1.40-6.50); %Lymphocytes 21.2 % (21.0-51.0); %Monocytes 8.4 % (0.0-10.0); %Neutrophils 69.4 % (42.0-75.0); Hemoglobin 12.5 g/dL (12.0-16.0); Mean Corpuscular HGB CONC 33.1 g/dL (32.0-36.0); Mean Corpuscular Hemoglobin 33.1 pg (27.0-31.0); Mean Platelet Volume 9.5 fL (7.4-10.4); Platelet Count 115 thou/uL (130-400); RBC Distribution Width 14.4 % (11.5-14.5); Red Blood Cell (RBC) Count 3.79 mill/uL (4.20-5.40); White Blood Cell (WBC) Count 3.3 thou/uL (4.8-10.8)
[2021-01-24 19:44] LABS: ALT (SGPT) 49 U/L (8-55); AST (SGOT) 70 U/L (5-34); Albumin 3.6 g/dL (3.5-5.0); Alkaline Phosphatase 191 U/L (40-110); Anion Gap 11 mmol/L (10-20); BUN (Urea Nitrogen) 15 mg/dL (9.8-20.1); Bilirubin, Total 0.9 mg/dL (0.2-1.2); Calc. Creatinine Clearance 0 mL/min (70-130); Calcium 9.1 mg/dL (7.8-10.44); Carbon Dioxide 26 mmol/L (22-29); Chloride 104 mmol/L (98-107); Globulin 3.4 g/dL (2.4-3.5); Glucose 116 mg/dL (70-105); Potassium 3.9 mmol/L (3.5-5.1); Sodium 137 mmol/L (136-145)
[2021-01-24] MEDS ORDERED: HYDROcodone/Acetaminophen 5/325 mg Tablet ONE (20:08)
[2021-01-24] MEDS ORDERED: Ondansetron ODT 4 MG TAB ONE (21:02)
[2021-01-24] MEDS ORDERED: Clindamycin/D5W 900 mg/50 ml Premix Bag ONE (22:04)
[2021-01-24] MEDS ORDERED: Ketorolac Tromethamine 30 MG/ML VIAL ONE (22:04)
[2021-01-25 00:11] VITALS: BMI 21.7
[2021-01-25] MEDS ORDERED: Acetaminophen 325 MG TAB PO PRN (00:15)
[2021-01-25] MEDS ORDERED: Ondansetron ODT 4 MG TAB SL PRN (00:15)
[2021-01-25] MEDS ORDERED: Morphine 2 MG/ML VIAL SLOW IVP PRN (01:14)
[2021-01-25] MEDS ORDERED: Ketorolac Tromethamine 30 MG/ML VIAL IVP PRN (01:14)
[2021-01-25] MEDS: Sodium Chloride 0.9% 1,000 ML IV SCH ×3 (01:21→21:16)
[2021-01-25] MEDS: Clindamycin/D5W 600 MG in Premix Bag 1 BAG IVPB SCH ×4 (03:39→21:17)
[2021-01-25] MEDS ORDERED: diphenhydrAMINE 12.5 MG/5 ML UDCUP PO PRN (05:07)
[2021-01-25] MEDS: Morphine 2 MG/ML VIAL SLOW IVP PRN ×5 (05:21→23:42)
[2021-01-25 07:00] LABS: #Lymphocytes 0.6 thou/uL (1.20-3.40); #Monocytes 0.3 thou/uL (0.11-0.59); #Neutrophils 1.1 thou/uL (1.40-6.50); %Basophils 0.8 % (0.0-1.0); %Eosinophils 2.1 % (0.0-10.0); %Lymphocytes 28.5 % (21.0-51.0); %Neutrophils 54.6 % (42.0-75.0); Hemoglobin 10.3 g/dL (12.0-16.0); Mean Corpuscular HGB CONC 33.2 g/dL (32.0-36.0); Mean Corpuscular Hemoglobin 33.4 pg (27.0-31.0); Platelet Count 92 thou/uL (130-400); RBC Distribution Width 14.3 % (11.5-14.5); Red Blood Cell (RBC) Count 3.08 mill/uL (4.20-5.40)
[2021-01-25 07:05] LABS: ALT (SGPT) 36 U/L (8-55); AST (SGOT) 53 U/L (5-34); Albumin 2.8 g/dL (3.5-5.0); Alkaline Phosphatase 158 U/L (40-110); Anion Gap 9 mmol/L (10-20); BUN (Urea Nitrogen) 12 mg/dL (9.8-20.1); Bilirubin, Total 0.6 mg/dL (0.2-1.2); Calc. Creatinine Clearance 81 mL/min (70-130); Calcium 8.1 mg/dL (7.8-10.44); Carbon Dioxide 28 mmol/L (22-29); Chloride 105 mmol/L (98-107); Globulin 2.6 g/dL (2.4-3.5); Glucose 105 mg/dL (70-105); Potassium 3.8 mmol/L (3.5-5.1); Protein, Total 5.4 g/dL (6.0-8.3); Sodium 138 mmol/L (136-145)
[2021-01-25] MEDS: Enoxaparin Sodium 40 MG/0.4 ML SYRINGE SC SCH (09:10)
[2021-01-25 12:08] LABS: SARS-CoV-2 PCR by NAA Not Detected (NotDetected)
[2021-01-25] MEDS: ALPRAZolam 0.5 MG TAB PO PRN (21:18)
[2021-01-26] MEDS: Sodium Chloride 0.9% 1,000 ML IV SCH (03:05)
[2021-01-26] MEDS: Clindamycin/D5W 600 MG in Premix Bag 1 BAG IVPB SCH ×3 (03:05→15:35)
[2021-01-26] MEDS: Morphine 2 MG/ML VIAL SLOW IVP PRN ×6 (03:06→23:43)
[2021-01-26] MEDS: Escitalopram Oxalate 20 mg Tablet PO SCH (08:19)
[2021-01-26] MEDS: Amlodipine 5 MG TAB PO SCH (08:20)
[2021-01-26] MEDS: Enoxaparin Sodium 40 MG/0.4 ML SYRINGE SC SCH (08:20)
[2021-01-26] MEDS: Valsartan 80 MG TAB PO SCH (08:20)
[2021-01-26 09:34] LABS: #Lymphocytes 0.4 thou/uL (1.20-3.40); #Monocytes 0.2 thou/uL (0.11-0.59); #Neutrophils 0.9 thou/uL (1.40-6.50); %Basophils 0.3 % (0.0-1.0); %Eosinophils 1.8 % (0.0-10.0); %Lymphocytes 25.7 % (21.0-51.0); %Neutrophils 59.1 % (42.0-75.0); Hemoglobin 11.1 g/dL (12.0-16.0); Mean Corpuscular Hemoglobin 33.1 pg (27.0-31.0); Mean Platelet Volume 9.5 fL (7.4-10.4); Platelet Count 92 thou/uL (130-400); RBC Distribution Width 14.4 % (11.5-14.5); Red Blood Cell (RBC) Count 3.34 mill/uL (4.20-5.40); White Blood Cell (WBC) Count 1.6 thou/uL (4.8-10.8)
[2021-01-26] MEDS: Ondansetron PF 4 MG/2 ML Vial IVP PRN ×2 (10:23→19:44)
[2021-01-26] MEDS: ALPRAZolam 0.5 MG TAB PO PRN ×2 (16:35→23:46)
[2021-01-27] MEDS: Morphine 2 MG/ML VIAL SLOW IVP PRN ×5 (03:49→20:29)
[2021-01-27] MEDS: Ondansetron PF 4 MG/2 ML Vial IVP PRN ×3 (03:49→20:27)
[2021-01-27 05:44] LABS: #Eosinphils 0.1 thou/uL (0.0-0.7); #Lymphocytes 0.7 thou/uL (1.20-3.40); #Monocytes 0.3 thou/uL (0.11-0.59); #Neutrophils 1.5 thou/uL (1.40-6.50); %Basophils 1.1 % (0.0-1.0); %Eosinophils 2.2 % (0.0-10.0); %Monocytes 12.4 % (0.0-10.0); %Neutrophils 58.3 % (42.0-75.0); Hemoglobin 11.2 g/dL (12.0-16.0); Mean Corpuscular HGB CONC 33.2 g/dL (32.0-36.0); Mean Corpuscular Volume 99.5 fL (78.0-98.0); Mean Platelet Volume 9.6 fL (7.4-10.4); Platelet Count 97 thou/uL (130-400); RBC Distribution Width 14.6 % (11.5-14.5); White Blood Cell (WBC) Count 2.5 thou/uL (4.8-10.8)
[2021-01-27] MEDS: Escitalopram Oxalate 20 mg Tablet PO SCH (08:10)
[2021-01-27] MEDS: Amlodipine 5 MG TAB PO SCH (08:10)
[2021-01-27] MEDS: Febuxostat 40 MG TAB PO SCH (08:10)
[2021-01-27] MEDS: Valsartan 80 MG TAB PO SCH (08:11)
[2021-01-27] MEDS: Enoxaparin Sodium 40 MG/0.4 ML SYRINGE SC SCH (08:11)
[2021-01-27] MEDS: ALPRAZolam 0.5 MG TAB PO PRN ×2 (10:56→20:37)
[2021-01-27] MEDS: cloNIDine 0.1 MG TAB PO PRN (20:27)
[2021-01-28] MEDS: cloNIDine 0.1 MG TAB PO PRN (05:03)
[2021-01-28] MEDS: Morphine 2 MG/ML VIAL SLOW IVP PRN ×3 (05:04→17:42)
[2021-01-28 08:50] LABS: #Lymphocytes 0.6 thou/uL (1.20-3.40); #Monocytes 0.3 thou/uL (0.11-0.59); #Neutrophils 1.6 thou/uL (1.40-6.50); %Basophils 0.8 % (0.0-1.0); %Eosinophils 1.3 % (0.0-10.0); %Lymphocytes 23.8 % (21.0-51.0); %Monocytes 11.4 % (0.0-10.0); %Neutrophils 62.6 % (42.0-75.0); Hemoglobin 11.7 g/dL (12.0-16.0); Mean Corpuscular HGB CONC 33.6 g/dL (32.0-36.0); Mean Corpuscular Hemoglobin 33.6 pg (27.0-31.0); Mean Corpuscular Volume 99.9 fL (78.0-98.0); Platelet Count 90 thou/uL (130-400); RBC Distribution Width 14.3 % (11.5-14.5); Red Blood Cell (RBC) Count 3.47 mill/uL (4.20-5.40); White Blood Cell (WBC) Count 2.5 thou/uL (4.8-10.8)
[2021-01-28 09:04] LABS: ALT (SGPT) 33 U/L (8-55); AST (SGOT) 51 U/L (5-34); Albumin 2.9 g/dL (3.5-5.0); Alkaline Phosphatase 158 U/L (40-110); Bilirubin, Direct 0.5 mg/dL (0.1-0.3); Bilirubin, Total 0.9 mg/dL (0.2-1.2); Protein, Total 5.6 g/dL (6.0-8.3)
[2021-01-28] MEDS ORDERED: Amlodipine 5 MG TAB PO SCH (11:09)
[2021-01-28] MEDS ORDERED: Amlodipine 10 MG TAB PO SCH (11:30)
[2021-01-28] MEDS: Enoxaparin Sodium 40 MG/0.4 ML SYRINGE SC SCH (14:01)
[2021-01-28] MEDS: Escitalopram Oxalate 20 mg Tablet PO SCH (14:02)
[2021-01-28] MEDS: Valsartan 80 MG TAB PO SCH (14:02)
[2021-01-28] MEDS: Febuxostat 40 MG TAB PO SCH (14:03)
[2021-01-28] MEDS: Amlodipine 5 MG TAB PO SCH (14:33)
[2021-01-28] MEDS: ALPRAZolam 0.5 MG TAB PO PRN (14:55)
[2021-01-28 15:27] VITALS: BP 143/83; TEMP 98
[2021-01-29] MEDS ORDERED: Amlodipine 10 MG TAB PO SCH (09:00)
== END 2021-01-28 18:21 | disposition home or self-care (01) | DRG 442 ==
LOC: ERS 18:09 → T4-A 23:01 → OBSVTOIN 23:01 → INTOOBSV 23:01 → UNDOADMOB 23:01 → T4-A 01-26 08:00 → OBSVTOIN 01-26 08:00 → UNDODISIN 01-28 18:21
PROVIDERS: ADMIT Internal Medicine; ATTEND Student in an Organized Health Care Education/Training Program
DX: B19.20 Unspecified viral hepatitis C without hepatic coma (principal); L03.116 Cellulitis of left lower limb; L03.115 Cellulitis of right lower limb; D61.818 Other pancytopenia; N13.30 Unspecified hydronephrosis; I10 Essential (primary) hypertension; M06.9 Rheumatoid arthritis, unspecified; Z88.0 Allergy status to penicillin; Z88.8 Allergy status to other drugs, medicaments and biological substances; Z79.899 Other long term (current) drug therapy; F17.210 Nicotine dependence, cigarettes, uncomplicated; Z90.710 Acquired absence of both cervix and uterus; D72.819 Decreased white blood cell count, unspecified; D69.6 Thrombocytopenia, unspecified; T38.0X5A Adverse effect of glucocorticoids and synthetic analogues, initial encounter; D53.9 Nutritional anemia, unspecified; J44.9 Chronic obstructive pulmonary disease, unspecified; R21 Rash and other nonspecific skin eruption; M25.50 Pain in unspecified joint; M47.26 Other spondylosis with radiculopathy, lumbar region; G89.29 Other chronic pain; I77.6 Arteritis, unspecified
CPT/HCPCS: 36415; 74176; 76705; 78227; 80053; 80076; 82595; 82607; 82746; 83690; 83880; 85025; 85652; 86140; 87635; 93005; 94760; 96365; 96366; 96372; 96375; 96376; A9537; G0378; J1650; J1885; J2270; J2405; J3490; Q0162; U0003; U0005

== ENCOUNTER 2021-03-28 15:59 | Observation (INO) | payer OTHER ==
[~2021-03-28 15:59] MED LIST: Iopamidol-370 76% 500 ML 1 ML ONE
[2021-03-28] MEDS ORDERED: Ondansetron PF 4 MG/2 ML Vial ONE (16:23)
[2021-03-28] MEDS ORDERED: Ketorolac Tromethamine 30 MG/ML VIAL ONE (16:45)
[2021-03-28 16:46] LABS: #Basophils 0.1 thou/uL (0.0-0.2); #Lymphocytes 1.5 thou/uL (1.20-3.40); #Monocytes 0.9 thou/uL (0.11-0.59); #Neutrophils 5.4 thou/uL (1.40-6.50); %Basophils 0.9 % (0.0-1.0); %Eosinophils 0.1 % (0.0-10.0); %Lymphocytes 18.6 % (21.0-51.0); %Monocytes 11.3 % (0.0-10.0); Hemoglobin 13.6 g/dL (12.0-16.0); Mean Corpuscular HGB CONC 33.6 g/dL (32.0-36.0); Mean Corpuscular Hemoglobin 30.9 pg (27.0-31.0); Mean Corpuscular Volume 91.9 fL (78.0-98.0); Mean Platelet Volume 9.3 fL (7.4-10.4); Platelet Count 196 thou/uL (130-400); RBC Distribution Width 12.7 % (11.5-14.5); White Blood Cell (WBC) Count 7.8 thou/uL (4.8-10.8)
[2021-03-28 17:03] LABS: Bacteria/HPF None Seen HPF (None Seen); Bilirubin Negative (Negative); Blood, Urine Negative (Negative); Clarity Clear (Clear); Glucose, Urine (Dipstick) Normal (Negative); Ketone, Urine Negative (Negative); Leukocyte 75 Leu/uL (Negative); Nitrite Negative (Negative); Protein, Urine (Dipstick) 300 mg/dL (Neg-Trace); RBC/HPF 0-3 HPF (0-3); Specific Gravity, Urine 1.028 (1.002-1.036); Squamous Epithelial 0-3 HPF (0-3); Urobilinogen Normal mg/dL (Less than 2)
[2021-03-28 17:09] LABS: ALT (SGPT) 131 U/L (8-55); AST (SGOT) 167 U/L (5-34); Albumin 3.5 g/dL (3.5-5.0); Alkaline Phosphatase 156 U/L (40-110); Anion Gap 13 mmol/L (10-20); BUN (Urea Nitrogen) 25 mg/dL (9.8-20.1); Bilirubin, Total 0.8 mg/dL (0.2-1.2); Calc. Creatinine Clearance 0 mL/min (70-130); Calcium 9.9 mg/dL (7.8-10.44); Carbon Dioxide 21 mmol/L (22-29); Chloride 106 mmol/L (98-107); Globulin 3.9 g/dL (2.4-3.5); Glucose 85 mg/dL (70-105); Lipase 77 U/L (8-78); Protein, Total 7.4 g/dL (6.0-8.3); Sodium 136 mmol/L (136-145)
[2021-03-28] MEDS ORDERED: Morphine 4 MG/ML VIAL ONE ×2 (17:16→18:53)
[2021-03-28] MEDS ORDERED: Sodium Chloride 0.9% 100 ML ONE (18:53)
[2021-03-28] MEDS ORDERED: Piperacillin/Tazobactam 3.375 GM VIAL ONE (18:53)
[2021-03-28] MEDS ORDERED: Ondansetron ODT 4 MG TAB SL PRN (20:00)
[2021-03-28] MEDS ORDERED: Ondansetron PF 4 MG/2 ML Vial IVP PRN (20:00)
[2021-03-28] MEDS: Morphine 4 MG/ML VIAL SLOW IVP PRN (21:36)
[2021-03-28] MEDS: Sodium Chloride 0.9% 1,000 ML IV SCH (21:37)
[2021-03-28 21:50] VITALS: BMI 20.3
[2021-03-28] MEDS: Piperacillin/Tazobactam 3.375 GM in Sodium Chloride 0.9% 100 ML IVPB SCH (23:04)
[2021-03-29 00:56] LABS: SARS-CoV-2 NAA Rapid Test Not Detected (NotDetected)
[2021-03-29] MEDS: Morphine 4 MG/ML VIAL SLOW IVP PRN ×5 (01:40→22:39)
[2021-03-29] MEDS: Piperacillin/Tazobactam 3.375 GM in Sodium Chloride 0.9% 100 ML IVPB SCH (05:27)
[2021-03-29] MEDS: Sodium Chloride 0.9% 1,000 ML IV SCH (05:27)
[2021-03-29] MEDS ORDERED: Ketorolac Tromethamine 30 MG/ML VIAL IVP PRN (06:28)
[2021-03-29] MEDS ORDERED: Scopolamine 1.5 mg/72 hour Patch TOP PRN (06:28)
[2021-03-29] MEDS ORDERED: Ketorolac Tromethamine 30 MG/ML VIAL IVP SCH (06:30)
[2021-03-29] MEDS ORDERED: ALPRAZolam 1 MG TAB PO PRN (08:35)
[2021-03-29] MEDS ORDERED: Lactated Ringer's 1,000 ML IV SCH (08:45)
[2021-03-29] MEDS ORDERED: Non-Formulary Item 1 EACH (Valsartan [Valsartan] 320 MG Tablet) PO SCH (09:00)
[2021-03-29] MEDS ORDERED: Amlodipine 10 MG TAB PO SCH (09:00)
[2021-03-29] MEDS ORDERED: Amlodipine 5 MG TAB PO SCH (09:00)
[2021-03-29] MEDS ORDERED: Valsartan 80 MG TAB PO SCH (09:00)
[2021-03-29] MEDS: Amlodipine 5 MG TAB PO SCH (09:47)
[2021-03-29] MEDS: Febuxostat 40 MG TAB PO SCH (09:48)
[2021-03-29] MEDS: Valsartan 80 MG TAB PO SCH (09:48)
[2021-03-29] MEDS: Escitalopram Oxalate 20 mg Tablet PO SCH (09:55)
[2021-03-29] MEDS: hydrALAZINE 20 MG/ML VIAL SLOW IVP PRN ×2 (11:57→17:14)
[2021-03-29] MEDS ORDERED: Morphine 2 MG/ML VIAL ONE (13:40)
[2021-03-29] MEDS ORDERED: Fentanyl 100 MCG/2 ML VIAL ONE ×2 (14:02→15:43)
[2021-03-29] MEDS ORDERED: Bupivacaine PF 0.5% 30 ML VIAL ONE (14:08)
[2021-03-29] MEDS ORDERED: Iothalamate Meglumine 60% 50 ML VIAL FS ONE (14:08)
[2021-03-29] MEDS ORDERED: XYLOCAINE 2%-EPI 1:100,000 20 ML VIAL ONE (14:08)
[2021-03-29] MEDS ORDERED: Lidocaine 1% w/Epinephrine 1:100K 20 ML VIAL ONE (14:23)
[2021-03-29] MEDS ORDERED: Midazolam HCl 2 mg/2 ml Vial ONE (14:27)
[2021-03-29] MEDS ORDERED: Labetalol HCl 100 MG/20 ML VIAL ONE (14:36)
[2021-03-29] MEDS ORDERED: Glycopyrrolate 0.2 MG/ML 5 ML SYRINGE ONE (14:36)
[2021-03-29] MEDS ORDERED: Lidocaine 1% PF 5 ML VIAL ONE (14:36)
[2021-03-29] MEDS ORDERED: PROPOFOL 200 MG/20 ML VIAL ONE (14:36)
[2021-03-29] MEDS ORDERED: Ondansetron PF 4 MG/2 ML Vial ONE (14:36)
[2021-03-29] MEDS ORDERED: Dexamethasone 20 MG/5 ML VIAL ONE (14:36)
[2021-03-29] MEDS ORDERED: Ketamine 50 MG/ML (10ML VIAL) ONE (14:41)
[2021-03-29] MEDS ORDERED: Acetaminophen 500 MG TAB PO PRN (15:27)
[2021-03-29] MEDS: HYDROcodone/Acetaminophen 5/325 mg Tablet PO PRN (17:09)
[2021-03-29] MEDS: Ibuprofen 600 MG TAB PO PRN (17:10)
[2021-03-29] MEDS ORDERED: Metoprolol Tartrate 5 MG/5 ML VIAL IVP SCH (18:45)
[2021-03-29] MEDS ORDERED: Labetalol HCl 100 MG/20 ML VIAL SLOW IVP PRN (19:39)
[2021-03-29] MEDS ORDERED: Metoprolol Tartrate 5 MG/5 ML VIAL IVP PRN (23:59)
[2021-03-30] MEDS: ALPRAZolam 0.5 MG TAB PO PRN ×2 (01:50→13:56)
[2021-03-30] MEDS: Morphine 4 MG/ML VIAL SLOW IVP PRN ×3 (03:12→15:08)
[2021-03-30] MEDS: HYDROcodone/Acetaminophen 5/325 mg Tablet PO PRN ×2 (06:24→11:15)
[2021-03-30] MEDS: Ibuprofen 600 MG TAB PO PRN (06:24)
[2021-03-30] MEDS: Escitalopram Oxalate 20 mg Tablet PO SCH (08:07)
[2021-03-30] MEDS: Valsartan 80 MG TAB PO SCH (08:07)
[2021-03-30] MEDS: Febuxostat 40 MG TAB PO SCH (08:07)
[2021-03-30] MEDS: Amlodipine 5 MG TAB PO SCH (08:08)
[2021-03-30] MEDS ORDERED: Polyethylene Glycol 3350 17 GM Packet PO SCH (09:00)
[2021-03-30] MEDS ORDERED: hydrALAZINE 25 MG TAB PO SCH ×2 (10:30→15:00)
[2021-03-30] MEDS ORDERED: Ondansetron PF 4 MG/2 ML Vial IVP PRN (11:13)
[2021-03-30] MEDS ORDERED: Ondansetron ODT 4 MG TAB PO PRN (11:13)
[2021-03-30 12:30] VITALS: TEMP 98.1
[2021-03-30 16:44] VITALS: BP 162/66
== END 2021-03-30 16:58 | disposition home or self-care (01) ==
LOC: ERS 15:59 → SURG A 18:53
PROVIDERS: ADMIT Specialist; ATTEND Specialist
PROC: 0FT44ZZ Resection of Gallbladder, Percutaneous Endoscopic Approach (ICD-10-PCS; principal; 2021-03-29)
DX: K81.2 Acute cholecystitis with chronic cholecystitis (principal); B19.20 Unspecified viral hepatitis C without hepatic coma; I10 Essential (primary) hypertension; N13.30 Unspecified hydronephrosis; M10.9 Gout, unspecified; Z87.891 Personal history of nicotine dependence; Z79.899 Other long term (current) drug therapy; Z88.0 Allergy status to penicillin; Z88.8 Allergy status to other drugs, medicaments and biological substances; Z20.822 Contact with and (suspected) exposure to COVID-19
CPT/HCPCS: 74177; 76705; 80053; 81003; 81015; 83690; 85025; 88304; 93005; 96365; 96366; 96367; 96375; 96376; G0378; J0360; J1100; J1610; J1885; J1956; J2250; J2270; J2405; J2543; J2704; J3010; J3490; Q0162; Q9961; Q9967; S0020; U0002; U0005

== ENCOUNTER 2021-08-13 18:15 | Inpatient (IN) | payer OTHER ==
[2021-08-13 19:17] LABS: #Lymphocytes 0.4 thou/uL (1.20-3.40); #Monocytes 0.5 thou/uL (0.11-0.59); #Neutrophils 5.6 thou/uL (1.40-6.50); %Basophils 0.5 % (0.0-1.0); %Lymphocytes 5.5 % (21.0-51.0); %Monocytes 7.5 % (0.0-10.0); %Neutrophils 86.5 % (42.0-75.0); Hemoglobin 10.9 g/dL (12.0-16.0); Mean Corpuscular HGB CONC 34.5 g/dL (32.0-36.0); Mean Corpuscular Hemoglobin 30.4 pg (27.0-31.0); Mean Corpuscular Volume 88.1 fL (78.0-98.0); Platelet Count 81 thou/uL (130-400); RBC Distribution Width 14.9 % (11.5-14.5); White Blood Cell (WBC) Count 6.5 thou/uL (4.8-10.8)
[2021-08-13 19:42] LABS: ALT (SGPT) 29 U/L (8-55); AST (SGOT) 31 U/L (5-34); Albumin 3.1 g/dL (3.4-4.8); Alkaline Phosphatase 151 U/L (40-110); Anion Gap 11 mmol/L (10-20); BUN (Urea Nitrogen) 42 mg/dL (9.8-20.1); Bilirubin, Total 1.3 mg/dL (0.2-1.2); CK (CPK) 56 U/L (29-168); Calc. Creatinine Clearance 0 mL/min (70-130); Calcium 8.1 mg/dL (7.8-10.44); Carbon Dioxide 15 mmol/L (23-31); Chloride 107 mmol/L (98-107); Globulin 3.4 g/dL (2.4-3.5); Glucose 103 mg/dL (80-115); Potassium 3.6 mmol/L (3.5-5.1); Protein, Total 6.5 g/dL (5.8-8.1); Sodium 129 mmol/L (136-145)
[2021-08-13 20:46] LABS: Bacteria/HPF 4+ HPF (None Seen); Bilirubin Negative (Negative); Blood, Urine 3+ (Negative); Clarity Extra Turbid (Clear); Glucose, Urine (Dipstick) Normal (Negative); Ketone, Urine Negative (Negative); Leukocyte 500 Leu/uL (Negative); Nitrite Negative (Negative); Protein, Urine (Dipstick) 100 mg/dL (Neg-Trace); Renal Epithelial 0-3 HPF (None Seen); Specific Gravity, Urine 1.028 (1.002-1.036); Squamous Epithelial 0-3 HPF (0-3); Urobilinogen Normal mg/dL (Less than 2); WBC/HPF Greater than 50 HPF (0-3)
[2021-08-13] MEDS ORDERED: cefTRIAXone\\ROCEPHIN 2 GM VIAL ONE (21:35)
[2021-08-13] MEDS ORDERED: Ketorolac Tromethamine 30 MG/ML VIAL ONE (22:56)
[2021-08-13] MEDS ORDERED: Bisacodyl 5 MG TAB PO PRN (23:07)
[2021-08-13] MEDS ORDERED: Senokot S 8.6-50 MG TAB PO PRN (23:07)
[2021-08-13] MEDS ORDERED: Acetaminophen 325 MG TAB PO PRN (23:07)
[2021-08-13] MEDS ORDERED: HYDROcodone/Acetaminophen 5/325 mg Tablet PO PRN (23:07)
[2021-08-14] MEDS: Ondansetron PF 4 MG/2 ML Vial IVP PRN ×2 (00:09→05:55)
[2021-08-14] MEDS: HYDROcodone/Acetaminophen 7.5/325 mg Tablet PO PRN ×2 (00:09→05:53)
[2021-08-14] MEDS: Nicotine 14 MG PATCH TD SCH ×2 (00:09→23:01)
[2021-08-14] MEDS: Guaifenesin DM 100-10/5 ML UDCUP PO PRN (00:10)
[2021-08-14 00:55] VITALS: BMI 23.0
[2021-08-14] MEDS ORDERED: hydrALAZINE 20 MG/ML VIAL SLOW IVP PRN (01:18)
[2021-08-14 01:20] LABS: Amphetamine Not Detected (NotDetected); Barbiturates Screen Not Detected (NotDetected); Benzodiazepine Screen Not Detected (NotDetected); Cocaine Metabolite Screen Not Detected (NotDetected); Methadone Not Detected (NotDetected); Methamphetamine Not Detected (NotDetected); Opiate Screen Not Detected (NotDetected); Oxycodone Screen Not Detected (NotDetected); Phencyclidine (PCP) Not Detected (NotDetected); THC/Cannabinoid Screen Not Detected (NotDetected); Tricyclic Screen Not Detected (NotDetected)
[2021-08-14] MEDS: ALPRAZolam 0.5 MG TAB PO PRN ×3 (02:00→21:35)
[2021-08-14 06:32] LABS: Sodium 133 mmol/L (136-145)
[2021-08-14 06:39] LABS: Hemoglobin 10.8 g/dL (12.0-16.0); Mean Corpuscular HGB CONC 33.6 g/dL (32.0-36.0); Mean Corpuscular Hemoglobin 29.9 pg (27.0-31.0); Mean Corpuscular Volume 89.1 fL (78.0-98.0); Mean Platelet Volume 10.1 fL (7.4-10.4); Platelet Count 73 thou/uL (130-400); RBC Distribution Width 15.2 % (11.5-14.5); Red Blood Cell (RBC) Count 3.62 mill/uL (4.20-5.40); White Blood Cell (WBC) Count 6.2 thou/uL (4.8-10.8)
[2021-08-14 06:40] LABS: ALT (SGPT) 27 U/L (8-55); AST (SGOT) 24 U/L (5-34); Albumin 2.9 g/dL (3.4-4.8); Alkaline Phosphatase 144 U/L (40-110); Anion Gap 11 mmol/L (10-20); BUN (Urea Nitrogen) 36 mg/dL (9.8-20.1); Band 11 % (5-11); Bilirubin, Total 0.8 mg/dL (0.2-1.2); Calc. Creatinine Clearance 35 mL/min (70-130); Carbon Dioxide 18 mmol/L (23-31); Chloride 108 mmol/L (98-107); Globulin 3.1 g/dL (2.4-3.5); Glucose 131 mg/dL (80-115); Lymphocytes 6 % (21-51); MDiff Complete? YES; Monocytes 4 % (0-10); Neutrophil 79 % (42-75); Platelet Morphology Comment Appears Decreased; Potassium 3.6 mmol/L (3.5-5.1); RBC Morphology Normal; Sodium 133 mmol/L (136-145)
[2021-08-14] MEDS: Heparin 5,000 UNITS/ML VIAL SC SCH ×2 (08:00→21:22)
[2021-08-14] MEDS: Pantoprazole 40 MG GRANULES PACKET PO SCH (08:00)
[2021-08-14] MEDS ORDERED: Valsartan 80 MG TAB PO SCH (09:00)
[2021-08-14] MEDS ORDERED: Sodium Chloride 0.9% 1,000 ML IV SCH (09:45)
[2021-08-14 17:03] LABS: SARS-CoV-2 PCR by NAA Not Detected (NotDetected)
[2021-08-14] MEDS: Sodium Chloride 0.9% 1,000 ML IV SCH ×2 (17:10→20:01)
[2021-08-14] MEDS: HYDROcodone/Acetaminophen 5/325 mg Tablet PO PRN (20:05)
[2021-08-14] MEDS ORDERED: cefTRIAXone\\ROCEPHIN 1 GM in Sodium Chloride 0.9% 100 ML IVPB SCH (21:00)
[2021-08-14 23:09] LABS: Amphetamine Not Detected (NotDetected); Barbiturates Screen Not Detected (NotDetected); Benzodiazepine Screen Detected (NotDetected); Cocaine Metabolite Screen Not Detected (NotDetected); Methadone Not Detected (NotDetected); Methamphetamine Not Detected (NotDetected); Opiate Screen Detected (NotDetected); Oxycodone Screen Not Detected (NotDetected); Phencyclidine (PCP) Not Detected (NotDetected); THC/Cannabinoid Screen Not Detected (NotDetected); Tricyclic Screen Not Detected (NotDetected)
[2021-08-15] MEDS: Sodium Chloride 0.9% 1,000 ML IV SCH (04:55)
[2021-08-15] MEDS: Heparin 5,000 UNITS/ML VIAL SC SCH ×2 (07:00→21:13)
[2021-08-15 07:24] LABS: Hemoglobin 8.6 g/dL (12.0-16.0); Mean Corpuscular HGB CONC 34.3 g/dL (32.0-36.0); Mean Corpuscular Volume 87.7 fL (78.0-98.0); Mean Platelet Volume 9.4 fL (7.4-10.4); Platelet Count 73 thou/uL (130-400); RBC Distribution Width 14.9 % (11.5-14.5); Red Blood Cell (RBC) Count 2.87 mill/uL (4.20-5.40); White Blood Cell (WBC) Count 3.9 thou/uL (4.8-10.8)
[2021-08-15 07:36] LABS: Anion Gap 12 mmol/L (10-20); BUN (Urea Nitrogen) 32 mg/dL (9.8-20.1); Calc. Creatinine Clearance 43 mL/min (70-130); Calcium 7.7 mg/dL (7.8-10.44); Carbon Dioxide 16 mmol/L (23-31); Chloride 113 mmol/L (98-107); Glucose 91 mg/dL (80-115); Potassium 3.5 mmol/L (3.5-5.1); Sodium 137 mmol/L (136-145)
[2021-08-15] MEDS: Pantoprazole 40 MG GRANULES PACKET PO SCH (07:47)
[2021-08-15] MEDS: HYDROcodone/Acetaminophen 5/325 mg Tablet PO PRN ×2 (08:06→21:22)
[2021-08-15] MEDS: ALPRAZolam 0.5 MG TAB PO PRN (08:06)
[2021-08-15 09:54] LABS: MDiff Complete? YES
[2021-08-15 09:55] LABS: Band 8 % (5-11); Eosinophils 2 % (0-10); Lymphocytes 17 % (21-51); Monocytes 5 % (0-10); Neutrophil 67 % (42-75); Platelet Morphology Comment Appears Decreased; Polychromasia SLIGHT = 2-3 cells (100X) (0-2/hpf)
[2021-08-15] MEDS ORDERED: OLANZapine 10 MG VIAL IM SCH (10:45)
[2021-08-15] MEDS ORDERED: OLANZapine ODT 5 MG TAB SL PRN (12:46)
[2021-08-15] MEDS: Sodium Bicarbonate Tab 325 MG TAB PO SCH ×2 (13:47→21:14)
[2021-08-15] MEDS ORDERED: OLANZapine ODT 5 MG TAB SL SCH (21:00)
[2021-08-15] MEDS ORDERED: cefTRIAXone\\ROCEPHIN 2 GM in Sodium Chloride 0.9% 100 ML IVPB SCH (21:00)
[2021-08-15] MEDS ORDERED: clonazePAM 0.5 MG TAB PO SCH (21:00)
[2021-08-15] MEDS: Nicotine 14 MG PATCH TD SCH (21:14)
[2021-08-15] MEDS: hydrOXYzine 25 MG TAB PO PRN (21:14)
[2021-08-15] MEDS: Acetaminophen 325 MG TAB PO PRN (21:27)
[2021-08-15] MEDS: Melatonin 3 MG TAB PO PRN (23:44)
[2021-08-15] MEDS ORDERED: hydrOXYzine 25 MG TAB PO SCH (23:45)
[2021-08-16] MEDS ORDERED: Lorazepam 2 MG/ML VIAL SLOW IVP SCH (04:26)
[2021-08-16] MEDS: HYDROcodone/Acetaminophen 5/325 mg Tablet PO PRN ×3 (06:21→19:55)
[2021-08-16] MEDS: Heparin 5,000 UNITS/ML VIAL SC SCH ×2 (07:08→19:53)
[2021-08-16] MEDS ORDERED: OLANZapine 10 MG VIAL IM SCH (07:30)
[2021-08-16] MEDS: clonazePAM 0.5 MG TAB PO SCH (07:37)
[2021-08-16] MEDS: Pantoprazole 40 MG GRANULES PACKET PO SCH (07:37)
[2021-08-16] MEDS: Sodium Bicarbonate Tab 325 MG TAB PO SCH ×3 (07:37→20:01)
[2021-08-16] MEDS ORDERED: Ziprasidone 20 MG VIAL IM SCH (10:45)
[2021-08-16 13:24] LABS: #Eosinphils 0.1 thou/uL (0.0-0.7); #Lymphocytes 0.6 thou/uL (1.20-3.40); #Monocytes 0.3 thou/uL (0.11-0.59); %Basophils 0.5 % (0.0-1.0); %Eosinophils 1.3 % (0.0-10.0); %Monocytes 7.3 % (0.0-10.0); %Neutrophils 76.9 % (42.0-75.0); Mean Corpuscular HGB CONC 35.4 g/dL (32.0-36.0); Mean Corpuscular Hemoglobin 31.1 pg (27.0-31.0); Mean Platelet Volume 10.1 fL (7.4-10.4); Platelet Count 98 thou/uL (130-400); RBC Distribution Width 14.9 % (11.5-14.5); Red Blood Cell (RBC) Count 3.53 mill/uL (4.20-5.40); White Blood Cell (WBC) Count 3.9 thou/uL (4.8-10.8)
[2021-08-16 14:13] LABS: Syphilis Antibody Nonreactive (Nonreactive); Syphilis Antibody Index 0.08 S/CO (<1.00 Non-Reactive)
[2021-08-16 14:19] LABS: Thyroid Stimulating Hormone 4.1348 uIU/mL (0.35-4.94)
[2021-08-16] MEDS: hydrOXYzine 25 MG TAB PO PRN ×2 (14:33→20:36)
[2021-08-16 14:48] LABS: Anion Gap 16 mmol/L (10-20); BUN (Urea Nitrogen) 23 mg/dL (9.8-20.1); Calc. Creatinine Clearance 48 mL/min (70-130); Calcium 8.6 mg/dL (7.8-10.44); Carbon Dioxide 16 mmol/L (23-31); Chloride 113 mmol/L (98-107); Glucose 164 mg/dL (80-115); Potassium 3.7 mmol/L (3.5-5.1); Sodium 141 mmol/L (136-145)
[2021-08-16] MEDS ORDERED: Ziprasidone 20 MG VIAL IM PRN (18:13)
[2021-08-16] MEDS: Guaifenesin DM 100-10/5 ML UDCUP PO PRN (20:01)
[2021-08-16] MEDS: OLANZapine ODT 5 MG TAB SL SCH (20:02)
[2021-08-16] MEDS ORDERED: Ondansetron PF 4 MG/2 ML Vial ONE (20:11)
[2021-08-16] MEDS ORDERED: hydrOXYzine 25 MG TAB ONE (20:12)
[2021-08-16] MEDS: Ondansetron PF 4 MG/2 ML Vial IVP PRN (20:19)
[2021-08-16] MEDS: Nicotine 14 MG PATCH TD SCH (22:44)
[2021-08-17] MEDS: HYDROcodone/Acetaminophen 5/325 mg Tablet PO PRN ×3 (01:16→14:46)
[2021-08-17] MEDS: hydrOXYzine 25 MG TAB PO PRN ×3 (04:32→20:20)
[2021-08-17 07:27] LABS: Anion Gap 12 mmol/L (10-20); BUN (Urea Nitrogen) 25 mg/dL (9.8-20.1); Calc. Creatinine Clearance 43 mL/min (70-130); Calcium 7.9 mg/dL (7.8-10.44); Carbon Dioxide 18 mmol/L (23-31); Chloride 112 mmol/L (98-107); Glucose 100 mg/dL (80-115); Hemoglobin 9.5 g/dL (12.0-16.0); Mean Corpuscular HGB CONC 33.6 g/dL (32.0-36.0); Mean Corpuscular Hemoglobin 29.4 pg (27.0-31.0); Mean Corpuscular Volume 87.6 fL (78.0-98.0); Mean Platelet Volume 9.6 fL (7.4-10.4); Platelet Count 104 thou/uL (130-400); Potassium 3.9 mmol/L (3.5-5.1); RBC Distribution Width 14.7 % (11.5-14.5); Red Blood Cell (RBC) Count 3.23 mill/uL (4.20-5.40); Sodium 138 mmol/L (136-145); White Blood Cell (WBC) Count 5.4 thou/uL (4.8-10.8)
[2021-08-17] MEDS ORDERED: FLU VACC QS2021-22(6MOS UP)/PF 60 MCG/0.5 ML SYRINGE IM ONE (09:00)
[2021-08-17] MEDS: Pantoprazole 40 MG GRANULES PACKET PO SCH (09:11)
[2021-08-17] MEDS: Sodium Bicarbonate Tab 325 MG TAB PO SCH ×3 (09:11→20:20)
[2021-08-17] MEDS: clonazePAM 0.5 MG TAB PO SCH (09:11)
[2021-08-17 09:26] LABS: Band 4 % (5-11); Eosinophils 2 % (0-10); Lymphocytes 18 % (21-51); MDiff Complete? YES; Monocytes 17 % (0-10); Neutrophil 58 % (42-75); Platelet Morphology Comment Appears Decreased; Polychromasia SLIGHT = 2-3 cells (100X) (0-2/hpf); Reactive Lymphocytes 1 % (0-10)
[2021-08-17] MEDS: OLANZapine ODT 5 MG TAB SL SCH (20:20)
[2021-08-17] MEDS: Melatonin 3 MG TAB PO PRN (20:27)
[2021-08-18] MEDS: Nicotine 14 MG PATCH TD SCH ×2 (01:03→05:16)
[2021-08-18] MEDS: hydrOXYzine 25 MG TAB PO PRN ×3 (04:24→20:07)
[2021-08-18] MEDS: Polyethylene Glycol OPTH DROP 15 ML BOT EA EYE PRN ×2 (04:24→20:17)
[2021-08-18] MEDS: HYDROcodone/Acetaminophen 5/325 mg Tablet PO PRN ×4 (05:21→22:01)
[2021-08-18] MEDS: clonazePAM 0.5 MG TAB PO SCH (08:47)
[2021-08-18] MEDS: Pantoprazole 40 MG GRANULES PACKET PO SCH (08:47)
[2021-08-18] MEDS: Sodium Bicarbonate Tab 325 MG TAB PO SCH ×3 (08:47→20:07)
[2021-08-18 09:03] LABS: #Eosinphils 0.1 thou/uL (0.0-0.7); #Lymphocytes 0.9 thou/uL (1.20-3.40); #Monocytes 0.5 thou/uL (0.11-0.59); #Neutrophils 3.2 thou/uL (1.40-6.50); %Eosinophils 2.1 % (0.0-10.0); %Lymphocytes 19.4 % (21.0-51.0); %Neutrophils 68.5 % (42.0-75.0); Hemoglobin 9.3 g/dL (12.0-16.0); Mean Corpuscular HGB CONC 33.3 g/dL (32.0-36.0); Mean Corpuscular Hemoglobin 29.3 pg (27.0-31.0); Mean Corpuscular Volume 87.8 fL (78.0-98.0); Mean Platelet Volume 9.6 fL (7.4-10.4); Platelet Count 142 thou/uL (130-400); Red Blood Cell (RBC) Count 3.18 mill/uL (4.20-5.40); White Blood Cell (WBC) Count 4.7 thou/uL (4.8-10.8)
[2021-08-18 09:21] LABS: Anion Gap 14 mmol/L (10-20); BUN (Urea Nitrogen) 19 mg/dL (9.8-20.1); Calc. Creatinine Clearance 44 mL/min (70-130); Calcium 8.6 mg/dL (7.8-10.44); Carbon Dioxide 20 mmol/L (23-31); Chloride 111 mmol/L (98-107); Glucose 118 mg/dL (80-115); Potassium 3.7 mmol/L (3.5-5.1); Sodium 141 mmol/L (136-145)
[2021-08-18] MEDS: Acetaminophen 325 MG TAB PO PRN (11:52)
[2021-08-18] MEDS ORDERED: Amlodipine 10 MG TAB PO SCH (12:45)
[2021-08-18] MEDS ORDERED: Ondansetron ODT 4 MG TAB PO PRN (13:17)
[2021-08-18] MEDS: OLANZapine ODT 5 MG TAB SL SCH (20:08)
[2021-08-18] MEDS: Melatonin 3 MG TAB PO PRN (20:08)
[2021-08-19] MEDS: Acetaminophen 325 MG TAB PO PRN (01:52)
[2021-08-19] MEDS: hydrOXYzine 25 MG TAB PO PRN ×2 (01:52→14:24)
[2021-08-19] MEDS: HYDROcodone/Acetaminophen 5/325 mg Tablet PO PRN (05:14)
[2021-08-19] MEDS: Nicotine 14 MG PATCH TD SCH (05:15)
[2021-08-19 07:10] LABS: #Eosinphils 0.1 thou/uL (0.0-0.7); #Lymphocytes 0.7 thou/uL (1.20-3.40); #Monocytes 0.3 thou/uL (0.11-0.59); #Neutrophils 2.5 thou/uL (1.40-6.50); %Basophils 0.8 % (0.0-1.0); %Eosinophils 3.8 % (0.0-10.0); %Lymphocytes 18.3 % (21.0-51.0); %Monocytes 8.3 % (0.0-10.0); %Neutrophils 68.7 % (42.0-75.0); Hemoglobin 8.3 g/dL (12.0-16.0); Mean Corpuscular HGB CONC 34.1 g/dL (32.0-36.0); Mean Corpuscular Hemoglobin 30.4 pg (27.0-31.0); Mean Corpuscular Volume 89.1 fL (78.0-98.0); Mean Platelet Volume 8.8 fL (7.4-10.4); Platelet Count 130 thou/uL (130-400); RBC Distribution Width 15.1 % (11.5-14.5); Red Blood Cell (RBC) Count 2.72 mill/uL (4.20-5.40); White Blood Cell (WBC) Count 3.6 thou/uL (4.8-10.8)
[2021-08-19 07:36] LABS: Anion Gap 11 mmol/L (10-20); BUN (Urea Nitrogen) 25 mg/dL (9.8-20.1); Calc. Creatinine Clearance 39 mL/min (70-130); Calcium 8.3 mg/dL (7.8-10.44); Carbon Dioxide 23 mmol/L (23-31); Chloride 111 mmol/L (98-107); Glucose 99 mg/dL (80-115); Sodium 141 mmol/L (136-145)
[2021-08-19] MEDS: Sodium Bicarbonate Tab 325 MG TAB PO SCH ×2 (07:54→14:24)
[2021-08-19] MEDS: Pantoprazole 40 MG GRANULES PACKET PO SCH (07:55)
[2021-08-19] MEDS: clonazePAM 0.5 MG TAB PO SCH (07:55)
[2021-08-19 08:12] VITALS: BP 152/82; TEMP 98.4
[2021-08-19] MEDS ORDERED: Amlodipine 10 MG TAB PO SCH (09:00)
[2021-08-19 12:13] LABS: Hep C PCR-Quant 100 IU/mL (.)
== END 2021-08-19 15:22 | disposition short-term general hospital (02) | DRG 690 ==
LOC: ERS 18:15 → T4-B 22:04 → OBSVTOIN 08-16 07:51
PROVIDERS: ADMIT Internal Medicine; ATTEND Internal Medicine
DX: N13.6 Pyonephrosis (principal); E87.1 Hypo-osmolality and hyponatremia; R78.81 Bacteremia; Z20.822 Contact with and (suspected) exposure to COVID-19; E87.2 Acidosis; B96.20 Unspecified Escherichia coli [E. coli] as the cause of diseases classified elsewhere; F17.210 Nicotine dependence, cigarettes, uncomplicated; N18.32 Chronic kidney disease, stage 3b; N17.9 Acute kidney failure, unspecified; J44.9 Chronic obstructive pulmonary disease, unspecified; F31.9 Bipolar disorder, unspecified; B18.2 Chronic viral hepatitis C; F41.9 Anxiety disorder, unspecified; I12.9 Hypertensive chronic kidney disease with stage 1 through stage 4 chronic kidney disease, or unspecified chronic kidney disease; F11.99 Opioid use, unspecified with unspecified opioid-induced disorder; G89.29 Other chronic pain; M19.90 Unspecified osteoarthritis, unspecified site; Z96.653 Presence of artificial knee joint, bilateral; D63.1 Anemia in chronic kidney disease; Z88.0 Allergy status to penicillin; Z88.8 Allergy status to other drugs, medicaments and biological substances; Z79.82 Long term (current) use of aspirin; Z79.899 Other long term (current) drug therapy; Z90.710 Acquired absence of both cervix and uterus; Z90.49 Acquired absence of other specified parts of digestive tract
CPT/HCPCS: 36415; 70450; 71045; 74176; 74177; 80048; 80053; 80306; 81003; 81015; 82140; 82550; 82607; 82746; 83605; 83690; 83930; 83935; 84295; 84300; 84443; 84484; 85025; 86780; 87040; 87077; 87086; 87149; 87186; 87522; 90471; 90686; 93005; 96365; 96372; 96374; 96375; 96376; G0008; G0378; J0360; J0696; J1644; J1885; J2060; J2358; J2405; J3486; J3490; J7050; Q0162; Q9967; U0003; U0005

== ENCOUNTER 2021-10-11 22:35 | Inpatient (IN) | payer OTHER ==
[2021-10-11] MEDS ORDERED: Morphine 4 MG/ML VIAL ONE (23:38)
[2021-10-11] MEDS ORDERED: Ondansetron PF 4 MG/2 ML Vial ONE (23:38)
[2021-10-11 23:46] LABS: #Eosinphils 0.1 thou/uL (0.0-0.7); #Lymphocytes 0.8 thou/uL (1.20-3.40); #Monocytes 0.3 thou/uL (0.11-0.59); #Neutrophils 1.8 thou/uL (1.40-6.50); %Basophils 1.1 % (0.0-1.0); %Lymphocytes 27.3 % (21.0-51.0); %Monocytes 9.9 % (0.0-10.0); %Neutrophils 57.8 % (42.0-75.0); Mean Corpuscular HGB CONC 34.7 g/dL (32.0-36.0); Mean Corpuscular Hemoglobin 32.6 pg (27.0-31.0); Mean Corpuscular Volume 93.9 fL (78.0-98.0); Mean Platelet Volume 8.4 fL (7.4-10.4); Platelet Count 115 thou/uL (130-400); White Blood Cell (WBC) Count 3.1 thou/uL (4.8-10.8)
[2021-10-11 23:50] LABS: Anion Gap 12 mmol/L (10-20); BUN (Urea Nitrogen) 31 mg/dL (9.8-20.1); Calc. Creatinine Clearance 0 mL/min (70-130); Calcium 9.1 mg/dL (7.8-10.44); Carbon Dioxide 19 mmol/L (23-31); Chloride 107 mmol/L (98-107); Glucose 86 mg/dL (80-115); Potassium 4.8 mmol/L (3.5-5.1); Sodium 133 mmol/L (136-145)
[2021-10-12] MEDS ORDERED: cefTRIAXone\\ROCEPHIN 2 GM VIAL ONE (00:49)
[2021-10-12] MEDS ORDERED: Morphine 4 MG/ML VIAL ONE (01:36)
[2021-10-12 01:50] LABS: Bilirubin Negative (Negative); Blood, Urine 3+ (Negative); Clarity Turbid (Clear); Glucose, Urine (Dipstick) Normal (Negative); Ketone, Urine Negative (Negative); Leukocyte 250 Leu/uL (Negative); Nitrite 2+ (Negative); Protein, Urine (Dipstick) 200 mg/dL (Neg-Trace); RBC/HPF Greater than 50 HPF (0-3); Specific Gravity, Urine 1.011 (1.002-1.036); Squamous Epithelial None Seen HPF (0-3); Urobilinogen Normal mg/dL (Less than 2); WBC/HPF Greater than 50 HPF (0-3); pH, Urine 6.5 (5.0-9.0)
[2021-10-12 02:05] LABS: Bacteria/HPF 2+ HPF (None Seen)
[2021-10-12] MEDS ORDERED: Ondansetron PF 4 MG/2 ML Vial IVP PRN (05:30)
[2021-10-12] MEDS ORDERED: Acetaminophen 325 MG TAB PO PRN (05:30)
[2021-10-12] MEDS ORDERED: Ondansetron ODT 4 MG TAB SL PRN (05:30)
[2021-10-12] MEDS ORDERED: Sodium Chloride 0.9% 1,000 ML IV SCH (05:30)
[2021-10-12] MEDS: Morphine 4 MG/ML VIAL SLOW IVP PRN ×6 (05:58→23:53)
[2021-10-12 11:35] LABS: SARS-CoV-2 PCR by NAA Not Detected (NotDetected)
[2021-10-12] MEDS: Sodium Chloride 0.9% 1,000 ML IV SCH ×2 (12:49→18:01)
[2021-10-12 19:40] VITALS: BMI 22.4
[2021-10-12] MEDS ORDERED: Amlodipine 5 MG TAB PO SCH (20:30)
[2021-10-12] MEDS ORDERED: Famotidine 20 MG TAB PO SCH (21:00)
[2021-10-12] MEDS ORDERED: ALPRAZolam 0.5 MG TAB PO SCH (23:15)
[2021-10-13] MEDS: cefTRIAXone\\ROCEPHIN 2 GM in Sodium Chloride 0.9% 100 ML IVPB SCH (01:15)
[2021-10-13] MEDS: Sodium Chloride 0.9% 1,000 ML IV SCH ×3 (01:15→17:07)
[2021-10-13] MEDS: Morphine 4 MG/ML VIAL SLOW IVP PRN ×6 (03:58→22:02)
[2021-10-13 07:54] LABS: #Eosinphils 0.1 thou/uL (0.0-0.7); #Lymphocytes 0.4 thou/uL (1.20-3.40); #Monocytes 0.2 thou/uL (0.11-0.59); %Basophils 0.4 % (0.0-1.0); %Eosinophils 7.2 % (0.0-10.0); %Lymphocytes 24.1 % (21.0-51.0); %Monocytes 11.4 % (0.0-10.0); %Neutrophils 56.9 % (42.0-75.0); Hemoglobin 11.1 g/dL (12.0-16.0); Mean Corpuscular Volume 94.2 fL (78.0-98.0); Mean Platelet Volume 8.6 fL (7.4-10.4); Platelet Count 87 thou/uL (130-400); RBC Distribution Width 13.9 % (11.5-14.5); Red Blood Cell (RBC) Count 3.48 mill/uL (4.20-5.40); White Blood Cell (WBC) Count 1.8 thou/uL (4.8-10.8)
[2021-10-13 08:10] LABS: ALT (SGPT) 49 U/L (8-55); AST (SGOT) 49 U/L (5-34); Albumin 2.8 g/dL (3.4-4.8); Alkaline Phosphatase 184 U/L (40-110); Anion Gap 11 mmol/L (10-20); BUN (Urea Nitrogen) 20 mg/dL (9.8-20.1); Bilirubin, Total 0.2 mg/dL (0.2-1.2); Calc. Creatinine Clearance 54 mL/min (70-130); Calcium 8.3 mg/dL (7.8-10.44); Carbon Dioxide 18 mmol/L (23-31); Chloride 111 mmol/L (98-107); Globulin 3.5 g/dL (2.4-3.5); Glucose 122 mg/dL (80-115); Potassium 4.6 mmol/L (3.5-5.1); Protein, Total 6.3 g/dL (5.8-8.1); Sodium 135 mmol/L (136-145)
[2021-10-13] MEDS: ALPRAZolam 0.5 MG TAB PO SCH ×3 (08:33→20:36)
[2021-10-13] MEDS ORDERED: Amlodipine 5 MG TAB PO SCH (09:00)
[2021-10-13] MEDS ORDERED: Enoxaparin Sodium 30 MG/0.3 ML SYRINGE SC SCH (09:00)
[2021-10-13] MEDS: Famotidine 20 MG TAB PO SCH (20:36)
[2021-10-13] MEDS: Bisacodyl 5 MG TAB PO PRN (20:36)
[2021-10-13] MEDS: Ondansetron PF 4 MG/2 ML Vial IVP PRN (23:34)
[2021-10-14] MEDS: cefTRIAXone\\ROCEPHIN 2 GM in Sodium Chloride 0.9% 100 ML IVPB SCH (01:05)
[2021-10-14] MEDS: Sodium Chloride 0.9% 1,000 ML IV SCH (01:06)
[2021-10-14] MEDS: hydrALAZINE 20 MG/ML VIAL SLOW IVP PRN ×2 (01:06→05:06)
[2021-10-14] MEDS: Morphine 4 MG/ML VIAL SLOW IVP PRN ×6 (02:03→22:41)
[2021-10-14] MEDS: Acetaminophen 325 MG TAB PO PRN ×2 (02:29→15:36)
[2021-10-14 07:08] LABS: #Eosinphils 0.1 thou/uL (0.0-0.7); #Lymphocytes 0.5 thou/uL (1.20-3.40); #Monocytes 0.2 thou/uL (0.11-0.59); #Neutrophils 0.8 thou/uL (1.40-6.50); %Basophils 0.8 % (0.0-1.0); %Eosinophils 8.5 % (0.0-10.0); %Lymphocytes 29.7 % (21.0-51.0); %Monocytes 10.6 % (0.0-10.0); %Neutrophils 50.4 % (42.0-75.0); Hemoglobin 11.7 g/dL (12.0-16.0); Mean Corpuscular HGB CONC 34.1 g/dL (32.0-36.0); Mean Corpuscular Hemoglobin 32.1 pg (27.0-31.0); Mean Corpuscular Volume 94.4 fL (78.0-98.0); Mean Platelet Volume 8.6 fL (7.4-10.4); Platelet Count 85 thou/uL (130-400); RBC Distribution Width 13.8 % (11.5-14.5); Red Blood Cell (RBC) Count 3.63 mill/uL (4.20-5.40); White Blood Cell (WBC) Count 1.7 thou/uL (4.8-10.8)
[2021-10-14] MEDS: Amlodipine 10 MG TAB PO SCH (08:37)
[2021-10-14] MEDS: ALPRAZolam 0.5 MG TAB PO SCH ×3 (08:37→20:23)
[2021-10-14] MEDS: Famotidine 20 MG TAB PO SCH ×2 (08:37→20:24)
[2021-10-14] MEDS ORDERED: Enoxaparin Sodium 40 MG/0.4 ML SYRINGE SC SCH (09:00)
[2021-10-14 09:40] LABS: ALT (SGPT) 51 U/L (8-55); AST (SGOT) 50 U/L (5-34); Alkaline Phosphatase 183 U/L (40-110); Anion Gap 10 mmol/L (10-20); BUN (Urea Nitrogen) 15 mg/dL (9.8-20.1); Bilirubin, Total 0.3 mg/dL (0.2-1.2); Calc. Creatinine Clearance 55 mL/min (70-130); Calcium 9.3 mg/dL (7.8-10.44); Carbon Dioxide 20 mmol/L (23-31); Chloride 110 mmol/L (98-107); Globulin 3.9 g/dL (2.4-3.5); Glucose 126 mg/dL (80-115); Potassium 4.1 mmol/L (3.5-5.1); Protein, Total 6.9 g/dL (5.8-8.1); Sodium 136 mmol/L (136-145)
[2021-10-14] MEDS: Ondansetron PF 4 MG/2 ML Vial IVP PRN (15:37)
[2021-10-14] MEDS: Bisacodyl 5 MG TAB PO PRN (21:27)
[2021-10-15] MEDS: Acetaminophen 325 MG TAB PO PRN (00:45)
[2021-10-15] MEDS: Morphine 4 MG/ML VIAL SLOW IVP PRN ×5 (03:08→20:55)
[2021-10-15 06:28] LABS: #Eosinphils 0.2 thou/uL (0.0-0.7); #Lymphocytes 0.4 thou/uL (1.20-3.40); #Monocytes 0.2 thou/uL (0.11-0.59); #Neutrophils 1.2 thou/uL (1.40-6.50); %Eosinophils 7.7 % (0.0-10.0); %Lymphocytes 20.5 % (21.0-51.0); %Monocytes 9.4 % (0.0-10.0); %Neutrophils 62.4 % (42.0-75.0); Hemoglobin 11.3 g/dL (12.0-16.0); Mean Corpuscular Hemoglobin 30.2 pg (27.0-31.0); Mean Corpuscular Volume 94.4 fL (78.0-98.0); Mean Platelet Volume 8.8 fL (7.4-10.4); Platelet Count 83 thou/uL (130-400); RBC Distribution Width 13.7 % (11.5-14.5); Red Blood Cell (RBC) Count 3.75 mill/uL (4.20-5.40)
[2021-10-15 06:44] LABS: Anion Gap 12 mmol/L (10-20); BUN (Urea Nitrogen) 16 mg/dL (9.8-20.1); Calc. Creatinine Clearance 49 mL/min (70-130); Carbon Dioxide 20 mmol/L (23-31); Chloride 109 mmol/L (98-107); Glucose 153 mg/dL (80-115); Potassium 3.9 mmol/L (3.5-5.1); Sodium 137 mmol/L (136-145)
[2021-10-15] MEDS: Famotidine 20 MG TAB PO SCH ×2 (08:55→20:48)
[2021-10-15] MEDS: Amlodipine 10 MG TAB PO SCH (08:55)
[2021-10-15] MEDS: ALPRAZolam 0.5 MG TAB PO SCH ×3 (08:55→20:48)
[2021-10-15] MEDS: Ondansetron PF 4 MG/2 ML Vial IVP PRN ×2 (15:34→20:49)
[2021-10-15] MEDS: Bisacodyl 5 MG TAB PO PRN (21:49)
[2021-10-16] MEDS: Morphine 4 MG/ML VIAL SLOW IVP PRN ×3 (01:20→09:46)
[2021-10-16] MEDS: Ondansetron PF 4 MG/2 ML Vial IVP PRN (05:46)
[2021-10-16] MEDS: Amlodipine 10 MG TAB PO SCH (08:26)
[2021-10-16] MEDS: Famotidine 20 MG TAB PO SCH (08:26)
[2021-10-16] MEDS: ALPRAZolam 0.5 MG TAB PO SCH (08:26)
[2021-10-16 08:39] VITALS: BP 164/80; TEMP 98.6
== END 2021-10-16 14:36 | disposition home or self-care (01) | DRG 698 ==
LOC: ERS 22:35 → T4-A 10-12 03:21 → INTOOBSV 10-12 03:21 → OBSVTOIN 10-13 15:28
PROVIDERS: ADMIT Internal Medicine; ATTEND Internal Medicine
PROC: 0T25X0Z Change Drainage Device in Kidney, External Approach (ICD-10-PCS; principal; 2021-10-11)
DX: T83.512A Infection and inflammatory reaction due to nephrostomy catheter, initial encounter (principal); G93.41 Metabolic encephalopathy; N13.6 Pyonephrosis; Z20.822 Contact with and (suspected) exposure to COVID-19; N17.9 Acute kidney failure, unspecified; B96.89 Other specified bacterial agents as the cause of diseases classified elsewhere; Y84.6 Urinary catheterization as the cause of abnormal reaction of the patient, or of later complication, without mention of misadventure at the time of the procedure; Z96.653 Presence of artificial knee joint, bilateral; F17.210 Nicotine dependence, cigarettes, uncomplicated; D72.819 Decreased white blood cell count, unspecified; N18.30 Chronic kidney disease, stage 3 unspecified; M19.90 Unspecified osteoarthritis, unspecified site; F41.9 Anxiety disorder, unspecified; I12.9 Hypertensive chronic kidney disease with stage 1 through stage 4 chronic kidney disease, or unspecified chronic kidney disease; G89.4 Chronic pain syndrome; N99.522 Malfunction of incontinent external stoma of urinary tract; Z90.710 Acquired absence of both cervix and uterus; Z90.49 Acquired absence of other specified parts of digestive tract; Z88.5 Allergy status to narcotic agent; Z88.8 Allergy status to other drugs, medicaments and biological substances; Z79.899 Other long term (current) drug therapy; Z86.19 Personal history of other infectious and parasitic diseases
CPT/HCPCS: 36415; 74018; 74176; 78708; 80048; 80053; 81003; 81015; 83605; 85025; 87040; 87077; 87086; 87186; 96365; 96372; 96375; 96376; A4641; A9562; G0378; J0360; J0696; J1650; J1956; J2270; J2405; J3490; J7050; U0003; U0005

== ENCOUNTER → 2022-01-13 | Day surgery (SDC) | payer OTHER ==
[~2022-01-13] MED LIST changes: +FLU VACC QS2021-22(6MOS UP)/PF 60 MCG/0.5 ML SYRINGE IM ONE; -Iopamidol-370 76% 500 ML 1 ML ONE; +Lidocaine 1% PF 5 ML VIAL ONE; +Sodium Bicarbonate 2.5 MEQ/5 ML VIAL ONE
== END ==
LOC: ULT 10:12
PROVIDERS: ATTEND Internal Medicine Infectious Disease
DX: R18.8 Other ascites (principal); Z53.8 Procedure and treatment not carried out for other reasons; Z88.0 Allergy status to penicillin; Z88.5 Allergy status to narcotic agent; Z88.8 Allergy status to other drugs, medicaments and biological substances
CPT/HCPCS: 76705; 90471; 90686; 90732; G0008; G0009

== ENCOUNTER 2022-02-24 20:04 | Emergency (ER) | payer OTHER ==
[~2022-02-24 20:04] MED LIST changes: -FLU VACC QS2021-22(6MOS UP)/PF 60 MCG/0.5 ML SYRINGE IM ONE; +Iopamidol 370 76% 50 ML VIAL FS ONE; +Iopamidol-370 76% 500 ML 1 ML ONE; -Lidocaine 1% PF 5 ML VIAL ONE; -Sodium Bicarbonate 2.5 MEQ/5 ML VIAL ONE
[2022-02-24] MEDS ORDERED: Ondansetron PF 4 MG/2 ML Vial ONE (21:53)
[2022-02-24] MEDS ORDERED: Morphine 4 MG/ML VIAL ONE (21:53)
[2022-02-24 22:01] LABS: #Eosinphils 0.1 thou/uL (0.0-0.7); #Lymphocytes 0.9 thou/uL (1.20-3.40); #Monocytes 0.3 thou/uL (0.11-0.59); #Neutrophils 1.7 thou/uL (1.40-6.50); %Basophils 0.3 % (0.0-1.0); %Eosinophils 3.4 % (0.0-10.0); %Lymphocytes 29.2 % (21.0-51.0); %Monocytes 10.2 % (0.0-10.0); %Neutrophils 56.9 % (42.0-75.0); Hemoglobin 9.9 g/dL (12.0-16.0); Mean Corpuscular HGB CONC 32.5 g/dL (32.0-36.0); Mean Corpuscular Hemoglobin 30.1 pg (27.0-31.0); Mean Corpuscular Volume 92.6 fL (78.0-98.0); Mean Platelet Volume 8.5 fL (7.4-10.4); Platelet Count 141 thou/uL (130-400); RBC Distribution Width 12.5 % (11.5-14.5); Red Blood Cell (RBC) Count 3.29 mill/uL (4.20-5.40)
[2022-02-24 22:19] LABS: ALT (SGPT) 71 U/L (8-55); AST (SGOT) 93 U/L (5-34); Albumin 3.3 g/dL (3.4-4.8); Alkaline Phosphatase 122 U/L (40-110); Anion Gap 11 mmol/L (10-20); BUN (Urea Nitrogen) 15 mg/dL (9.8-20.1); Bilirubin, Total 0.4 mg/dL (0.2-1.2); CK (CPK) 29 U/L (29-168); Calc. Creatinine Clearance 0 mL/min (70-130); Calcium 8.7 mg/dL (7.8-10.44); Carbon Dioxide 19 mmol/L (23-31); Chloride 109 mmol/L (98-107); Globulin 4.4 g/dL (2.4-3.5); Glucose 87 mg/dL (80-115); Lipase 47 U/L (8-78); Protein, Total 7.7 g/dL (5.8-8.1); Sodium 134 mmol/L (136-145)
[2022-02-24 23:27] LABS: Bacteria/HPF None Seen HPF (None Seen); Bilirubin Negative (Negative); Blood, Urine Negative (Negative); Clarity Clear (Clear); Glucose, Urine (Dipstick) Normal (Negative); Ketone, Urine Negative (Negative); Leukocyte Negative Leu/uL (Negative); Nitrite Negative (Negative); Protein, Urine (Dipstick) 100 mg/dL (Neg-Trace); RBC/HPF 0-3 HPF (0-3); Specific Gravity, Urine 1.012 (1.002-1.036); Squamous Epithelial 0-3 HPF (0-3); Urobilinogen Normal mg/dL (Less than 2); WBC/HPF 0-3 HPF (0-3); pH, Urine 6.5 (5.0-9.0)
== END 2022-02-25 00:10 | disposition home or self-care (01) ==
LOC: ERS 20:04
DX: R10.9 Unspecified abdominal pain (principal); I10 Essential (primary) hypertension
CPT/HCPCS: 36415; 71045; 74177; 80053; 81003; 81015; 82550; 83690; 83880; 84484; 85025; 93005; 96374; 96375; J2270; J2405; Q9967

== ENCOUNTER 2022-03-17 08:37 | Day surgery (SDC) | payer OTHER ==
[2022-03-16 09:19] VITALS: BMI 22.3
[2022-03-17 08:44] LABS: #Eosinphils 0.1 thou/uL (0.0-0.7); #Lymphocytes 0.7 thou/uL (1.20-3.40); #Monocytes 0.3 thou/uL (0.11-0.59); #Neutrophils 1.8 thou/uL (1.40-6.50); %Basophils 0.1 % (0.0-1.0); %Eosinophils 2.3 % (0.0-10.0); %Lymphocytes 25.3 % (21.0-51.0); %Monocytes 11.2 % (0.0-10.0); %Neutrophils 61.2 % (42.0-75.0); Hemoglobin 10.2 g/dL (12.0-16.0); Mean Corpuscular HGB CONC 31.2 g/dL (32.0-36.0); Mean Corpuscular Hemoglobin 27.7 pg (27.0-31.0); Mean Corpuscular Volume 88.9 fL (78.0-98.0); Mean Platelet Volume 8.4 fL (7.4-10.4); Platelet Count 158 thou/uL (130-400); RBC Distribution Width 13.2 % (11.5-14.5); Red Blood Cell (RBC) Count 3.67 mill/uL (4.20-5.40); White Blood Cell (WBC) Count 2.9 thou/uL (4.8-10.8)
[2022-03-17] MEDS ORDERED: Albumin 25% 100 ML ONE (08:44)
[2022-03-17] MEDS ORDERED: Sodium Bicarbonate 2.5 MEQ/5 ML VIAL ONE (08:44)
[2022-03-17] MEDS ORDERED: Lidocaine 1% PF 5 ML VIAL ONE (08:44)
[2022-03-17 08:59] LABS: INR-International Normal Ratio 1.2; Prothrombin Time 15.8 sec (12.0-14.7)
[2022-03-17 10:16] VITALS: BP 146/88; TEMP 97.7
[2022-03-17 10:45] LABS: Fluid, Protein 2.8 g/dL (Not Available)
[2022-03-17 10:56] LABS: Body Fluid Source Ascites Body Fluid; RBC Count-Automated (BF) 150 /cu.mm; WBC/Nucleated-Auto (BF) 93 /cu.mm
[2022-03-17 10:57] LABS: BF Color Yellow; Clarity Hazy (Clear); Tube # EDTA
[2022-03-17 11:21] LABS: Cell Count Non Hematic 43 %
[2022-03-17 11:22] LABS: BF Segmented Neutrophils 1 %; Lymphocytes 56 %
== END 2022-03-17 10:00 | disposition home or self-care (01) ==
LOC: ULT 08:37
PROVIDERS: ATTEND Internal Medicine Gastroenterology
PROC: 0W9G3ZX Drainage of Peritoneal Cavity, Percutaneous Approach, Diagnostic (ICD-10-PCS; principal; 2022-03-17)
DX: K74.60 Unspecified cirrhosis of liver (principal); R18.8 Other ascites; Z79.890 Hormone replacement therapy; Z79.899 Other long term (current) drug therapy; Z88.5 Allergy status to narcotic agent; Z88.8 Allergy status to other drugs, medicaments and biological substances
CPT/HCPCS: 36415; 49083; 82945; 84157; 85025; 85060; 85610; 85730; 87070; 87205; 89051; P9047

== ENCOUNTER 2023-01-23 15:51 | Outpatient (CLI) | payer OTHER | END 2023-01-23 15:52 | disposition home or self-care (01) | LOC: BICRAD 15:51 | PROVIDERS: ATTEND Orthopaedic Surgery | DX: S22.31XD Fracture of one rib, right side, subsequent encounter for fracture with routine healing (principal); S22.32XD Fracture of one rib, left side, subsequent encounter for fracture with routine healing | CPT/HCPCS: 71111 ==

== ENCOUNTER 2023-06-07 14:26 | Outpatient (CLI) | payer OTHER ==
[2023-06-07 16:17] LABS: #Eosinphils 0.2 10x3/uL (0.0-0.5); #Monocytes 0.5 10x3/uL (0.0-1.1); #Neutrophils 2.9 10x3/uL (1.5-8.4); %Basophils 0.2 % (0.0-2.0); %Lymphocytes 16.9 % (18.0-47.0); %Monocytes 12.1 % (0.0-10.0); %Neutrophils 65.3 % (40.0-75.0); Hematocrit 28.2 % (34.9-44.5); Hemoglobin 8.2 g/dL (12.0-15.5); Mean Corpuscular HGB CONC 29.1 g/dL (32.0-36.0); Mean Corpuscular Hemoglobin 23.7 pg (27.0-33.0); Mean Corpuscular Volume 81.5 fl (81.6-98.3); Platelet Count 169 10x3/uL (150-450); RBC Distribution Width 17.8 % (11.5-14.5); Red Blood Cell (RBC) Count 3.46 10x6/uL (3.90-5.03); White Blood Cell (WBC) Count 4.4 10x3/uL (3.5-10.5)
[2023-06-07 16:40] LABS: Anion Gap 15 mmol/L (10-20); BUN (Urea Nitrogen) 22 mg/dL (9.8-20.1); Calc. Creatinine Clearance 0 mL/min (70-130); Calcium 9.5 mg/dL (7.8-10.44); Carbon Dioxide 23 mmol/L (23-31); Chloride 108 mmol/L (98-107); Estimated GFR 60; Glucose 80 mg/dL (80-115); Potassium 5.3 mmol/L (3.5-5.1); Sodium 141 mmol/L (136-145)
== END 2023-06-07 14:27 | disposition home or self-care (01) ==
LOC: LABBT 14:26
PROVIDERS: ATTEND Specialist
DX: Z01.818 Encounter for other preprocedural examination (principal); K64.8 Other hemorrhoids
CPT/HCPCS: 71046; 80048; 85025; 93005; 93010

== ENCOUNTER 2023-06-12 08:56 | Day surgery (SDC) | payer OTHER ==
[2023-06-07 15:12] VITALS: BMI 21.6
[2023-06-12] MEDS ORDERED: Ketorolac Tromethamine 30 MG/ML VIAL ONE (10:00)
[2023-06-12] MEDS ORDERED: Acetaminophen 500 MG TAB ONE (10:00)
[2023-06-12] MEDS ORDERED: Midazolam HCl 2 mg/2 ml Vial ONE ×2 (10:08→14:23)
[2023-06-12] MEDS ORDERED: EPINEPHrine 1 MG/ML AMP ONE (12:06)
[2023-06-12] MEDS ORDERED: Bupivacaine 0.25% HCL 30 ML VIAL ONE (12:06)
[2023-06-12] MEDS ORDERED: fentaNYL 50 mcg/mL 1 mL Vial ONE ×6 (12:14→15:39)
[2023-06-12] MEDS ORDERED: Sodium Chloride 0.9% 100 ML ONE (12:16)
[2023-06-12] MEDS ORDERED: CEFAZOLIN 2 GM VIAL ONE (12:16)
[2023-06-12] MEDS ORDERED: PROPOFOL 200 MG/20 ML VIAL ONE (12:35)
[2023-06-12] MEDS ORDERED: Lidocaine 1% PF 5 ML VIAL ONE (12:35)
[2023-06-12] MEDS ORDERED: Rocuronium Bromide 10 MG/ML (10ML VIAL) ONE (12:35)
[2023-06-12] MEDS ORDERED: SUGAMMADEX SODIUM 200 MG/2 ML VIAL ONE (13:20)
[2023-06-12] MEDS ORDERED: HYDROmorphone 0.5 MG/0.5 ML SYRINGE ONE (14:11)
[2023-06-12] MEDS ORDERED: HYDROcodone/Acetaminophen 5/325 mg Tablet ONE ×2 (16:36)
== END 2023-06-12 17:09 | disposition home or self-care (01) ==
LOC: SDC 08:56
PROVIDERS: ATTEND Specialist
PROC: 06BY0ZC Excision of Hemorrhoidal Plexus, Open Approach (ICD-10-PCS; principal; 2023-06-12)
DX: K64.8 Other hemorrhoids (principal); I10 Essential (primary) hypertension; M19.90 Unspecified osteoarthritis, unspecified site; Z88.6 Allergy status to analgesic agent; Z88.1 Allergy status to other antibiotic agents; Z90.710 Acquired absence of both cervix and uterus; Z96.621 Presence of right artificial elbow joint; Z79.891 Long term (current) use of opiate analgesic; Z79.899 Other long term (current) drug therapy
CPT/HCPCS: J0171; J1170; J1885; J2250; J2704; J3010; J3490; S0020

== ENCOUNTER 2023-06-13 12:08 | Inpatient (IN) | payer OTHER ==
[2023-06-13] MEDS ORDERED: Ondansetron PF 4 MG/2 ML Vial IVP PRN (13:32)
[2023-06-13 13:33] VITALS: BMI 22.1
[2023-06-13] MEDS: Morphine 4 MG/ML VIAL SLOW IVP PRN ×5 (13:44→22:56)
[2023-06-13] MEDS ORDERED: Dextrose 5 % And 0.9 % NaCl 1,000 ML IV SCH (13:45)
[2023-06-13] MEDS: ALPRAZolam 0.5 MG TAB PO PRN (14:54)
[2023-06-14] MEDS: Morphine 4 MG/ML VIAL SLOW IVP PRN ×4 (01:16→20:41)
[2023-06-14] MEDS ORDERED: Dextrose 5 % And 0.9 % NaCl 1,000 ML IV SCH (01:27)
[2023-06-14] MEDS ORDERED: Docusate 100 MG CAP PO PRN (01:28)
[2023-06-14] MEDS ORDERED: Spironolactone 25 MG TAB PO PRN (01:33)
[2023-06-14] MEDS: ALPRAZolam 0.5 MG TAB PO PRN ×3 (04:22→20:42)
[2023-06-14 05:51] LABS: #Eosinphils 0.2 thou/uL (0.0-0.7); #Monocytes 0.3 thou/uL (0.11-0.59); #Neutrophils 1.4 thou/uL (1.40-6.50); %Basophils 0.4 % (0.0-1.0); %Eosinophils 6.4 % (0.0-10.0); %Monocytes 12.4 % (0.0-10.0); %Neutrophils 56.8 % (42.0-75.0); Hematocrit 20.5 % (36.0-47.0); Mean Corpuscular HGB CONC 29.3 g/dL (32.0-36.0); Mean Corpuscular Hemoglobin 24.3 pg (27.0-31.0); Mean Platelet Volume 12.4 fL (7.4-10.4); RBC Distribution Width 17.2 % (11.5-14.5); Red Blood Cell (RBC) Count 2.47 mill/uL (4.20-5.40); White Blood Cell (WBC) Count 2.5 10x3/uL (4.8-10.8)
[2023-06-14 05:57] LABS: Platelet Count 82 10x3/uL (130-400)
[2023-06-14 06:14] LABS: Anion Gap 7 mmol/L (10-20); BUN (Urea Nitrogen) 14 mg/dL (9.8-20.1); Calc. Creatinine Clearance 58 mL/min (70-130); Calcium 8.4 mg/dL (7.8-10.44); Carbon Dioxide 21 mmol/L (23-31); Chloride 115 mmol/L (98-107); Estimated GFR 68; Glucose 108 mg/dL (80-115); Potassium 4.8 mmol/L (3.5-5.1); Sodium 138 mmol/L (136-145)
[2023-06-14 08:15] LABS: INR-International Normal Ratio 1.2; Prothrombin Time 15.2 sec (12.0-14.7)
[2023-06-14 08:16] LABS: PTT 42.1 sec (22.9-36.1)
[2023-06-14] MEDS: Amlodipine 10 MG TAB PO SCH (08:36)
[2023-06-14] MEDS: Gabapentin 300 MG CAP PO SCH ×2 (08:37→20:42)
[2023-06-14] MEDS: Metoprolol Tartrate 25 MG TAB PO SCH (08:38)
[2023-06-14] MEDS: Losartan 25 MG TAB PO SCH (08:38)
[2023-06-14] MEDS ORDERED: traMADol HCl 50 MG TAB PO PRN (10:38)
[2023-06-14] MEDS ORDERED: Iron Sucrose Complex 200 MG in Sodium Chloride 0.9% 100 ML IVPB SCH (10:45)
[2023-06-14] MEDS ORDERED: Polyethylene Glycol 3350 17 GM Packet PO SCH (11:15)
[2023-06-14] MEDS: Morphine 2 MG/ML VIAL SLOW IVP PRN ×3 (11:30→23:59)
[2023-06-14] MEDS: Dextrose 5%-Lactated Ringers 1,000 ML IV SCH (11:38)
[2023-06-14] MEDS ORDERED: Iron, Sodium Ferric Gluconate 250 MG in Sodium Chloride 0.9% 250 ML 250 ML IVPB SCH (12:00)
[2023-06-14] MEDS: Polyethylene Glycol 3350 17 GM Packet PO SCH (20:43)
[2023-06-15] MEDS: ALPRAZolam 0.5 MG TAB PO PRN ×2 (03:58→09:45)
[2023-06-15] MEDS: Morphine 2 MG/ML VIAL SLOW IVP PRN ×3 (03:58→13:59)
[2023-06-15 05:16] LABS: #Eosinphils 0.2 thou/uL (0.0-0.7); #Monocytes 0.3 thou/uL (0.11-0.59); #Neutrophils 1.6 thou/uL (1.40-6.50); %Basophils 0.4 % (0.0-1.0); %Eosinophils 5.7 % (0.0-10.0); %Lymphocytes 20.9 % (21.0-51.0); %Monocytes 12.2 % (0.0-10.0); %Neutrophils 60.4 % (42.0-75.0); Hematocrit 21.3 % (36.0-47.0); Hemoglobin 6.5 g/dL (12.0-16.0); Mean Corpuscular HGB CONC 30.5 g/dL (32.0-36.0); Mean Corpuscular Volume 81.9 fl (78.0-98.0); Mean Platelet Volume 11.9 fL (7.4-10.4); RBC Distribution Width 17.2 % (11.5-14.5); White Blood Cell (WBC) Count 2.6 10x3/uL (4.8-10.8)
[2023-06-15 05:17] LABS: Platelet Count 80 10x3/uL (130-400)
[2023-06-15 05:38] LABS: ALT (SGPT) 9 U/L (8-55); AST (SGOT) 15 U/L (5-34); Albumin 3.3 g/dL (3.4-4.8); Alkaline Phosphatase 97 U/L (40-110); Anion Gap 10 mmol/L (10-20); BUN (Urea Nitrogen) 9 mg/dL (9.8-20.1); Bilirubin, Total 0.2 mg/dL (0.2-1.2); Calc. Creatinine Clearance 67 mL/min (70-130); Calcium 8.6 mg/dL (7.8-10.44); Carbon Dioxide 23 mmol/L (23-31); Chloride 111 mmol/L (98-107); Estimated GFR 80; Globulin 2.7 g/dL (2.4-3.5); Glucose 104 mg/dL (80-115); Potassium 4.6 mmol/L (3.5-5.1); Sodium 139 mmol/L (136-145)
[2023-06-15] MEDS: Metoprolol Tartrate 25 MG TAB PO SCH (08:20)
[2023-06-15] MEDS: Losartan 25 MG TAB PO SCH (08:20)
[2023-06-15] MEDS: Amlodipine 10 MG TAB PO SCH (08:20)
[2023-06-15] MEDS: Gabapentin 300 MG CAP PO SCH (08:20)
[2023-06-15] MEDS: Polyethylene Glycol 3350 17 GM Packet PO SCH (08:21)
[2023-06-15] MEDS: Dextrose 5%-Lactated Ringers 1,000 ML IV SCH (14:13)
[2023-06-15 16:06] VITALS: BP 167/80; TEMP 97.8
== END 2023-06-15 16:35 | disposition home or self-care (01) | DRG 921 ==
LOC: SURG A 12:08
PROVIDERS: ADMIT Specialist; ATTEND Specialist
PROC: 30233N1 Transfusion of Nonautologous Red Blood Cells into Peripheral Vein, Percutaneous Approach (ICD-10-PCS; principal; 2023-06-13)
DX: K91.841 Postprocedural hemorrhage of a digestive system organ or structure following other procedure (principal); G89.18 Other acute postprocedural pain; K64.8 Other hemorrhoids; F41.9 Anxiety disorder, unspecified; I10 Essential (primary) hypertension; M19.90 Unspecified osteoarthritis, unspecified site; K74.60 Unspecified cirrhosis of liver; Z90.710 Acquired absence of both cervix and uterus; Z96.653 Presence of artificial knee joint, bilateral; Z98.890 Other specified postprocedural states; Z87.891 Personal history of nicotine dependence
CPT/HCPCS: 36415; 36430; 80048; 80053; 85025; 85610; 85730; 86850; 86900; 86901; J2270; J2272; J2916; J7042; J7050; P9016

== ENCOUNTER 2023-06-16 14:42 | Emergency (ER) | payer OTHER ==
[~2023-06-16 14:42] MED LIST changes: -Iopamidol 370 76% 50 ML VIAL FS ONE; -Iopamidol-370 76% 500 ML 1 ML ONE; +Iopamidol-370 76% 500 ML MDV (1 ML CHARGE) ONE
[2023-06-16 15:50] LABS: #Eosinphils 0.1 thou/uL (0.0-0.7); #Monocytes 0.3 thou/uL (0.11-0.59); #Neutrophils 2.5 thou/uL (1.40-6.50); %Basophils 0.3 % (0.0-1.0); %Lymphocytes 20.1 % (21.0-51.0); %Monocytes 8.5 % (0.0-10.0); %Neutrophils 67.6 % (42.0-75.0); Hematocrit 25.2 % (36.0-47.0); Hemoglobin 7.7 g/dL (12.0-16.0); Mean Corpuscular HGB CONC 30.6 g/dL (32.0-36.0); Mean Corpuscular Hemoglobin 24.8 pg (27.0-31.0); Mean Corpuscular Volume 81.3 fl (78.0-98.0); Mean Platelet Volume 12.1 fL (7.4-10.4); Platelet Count 135 10x3/uL (130-400); RBC Distribution Width 17.2 % (11.5-14.5); White Blood Cell (WBC) Count 3.6 10x3/uL (4.8-10.8)
[2023-06-16 16:11] LABS: ALT (SGPT) 12 U/L (8-55); AST (SGOT) 16 U/L (5-34); Alkaline Phosphatase 115 U/L (40-110); Anion Gap 14 mmol/L (10-20); BUN (Urea Nitrogen) 10 mg/dL (9.8-20.1); Bilirubin, Total 0.2 mg/dL (0.2-1.2); Calc. Creatinine Clearance 0 mL/min (70-130); Calcium 9.4 mg/dL (7.8-10.44); Carbon Dioxide 20 mmol/L (23-31); Chloride 110 mmol/L (98-107); Estimated GFR 62; Globulin 3.2 g/dL (2.4-3.5); Glucose 104 mg/dL (80-115); Lipase 17 U/L (8-78); Potassium 4.5 mmol/L (3.5-5.1); Protein, Total 7.2 g/dL (5.8-8.1); Sodium 139 mmol/L (136-145)
[2023-06-16] MEDS ORDERED: Promethazine HCl 25 MG/ML VIAL ONE (18:43)
[2023-06-16] MEDS ORDERED: Morphine 4 MG/ML VIAL ONE ×2 (18:43→20:30)
[2023-06-16 18:45] LABS: Bacteria/HPF None Seen HPF (None Seen); Bilirubin Negative (Negative); Blood, Urine Negative (Negative); CAUTI Indications for Culture Dysuria,urgency,freq; Clarity Clear (Clear); Glucose, Urine (Dipstick) Normal (Negative); Ketone, Urine Negative (Negative); Leukocyte Negative Leu/uL (Negative); Mucous/LPF Rare LPF (<2+); Nitrite Negative (Negative); Protein, Urine (Dipstick) 300 mg/dL (Neg-Trace); RBC/HPF 0-3 HPF (0-3); Specific Gravity, Urine 1.022 (1.002-1.036); Squamous Epithelial 0-3 HPF (0-3); Urobilinogen Normal mg/dL (Less than 2); WBC/HPF 0-3 HPF (0-3); pH, Urine 6.5 (5.0-9.0)
[2023-06-16 18:50] LABS: Urine Culture Reflex No No
[2023-06-16 19:18] LABS: SARS-CoV-2 NAA Rapid Test Not Detected (NotDetected)
[2023-06-16 19:27] LABS: Troponin I Less than 0.010 ng/mL (< 0.028)
== END 2023-06-16 21:54 | disposition home or self-care (01) ==
LOC: ERS 14:42
DX: R53.1 Weakness (principal); D64.9 Anemia, unspecified; R11.0 Nausea; R06.02 Shortness of breath; I10 Essential (primary) hypertension; Z20.822 Contact with and (suspected) exposure to COVID-19
CPT/HCPCS: 36415; 71045; 71275; 80053; 81001; 83605; 83690; 83880; 84484; 85025; 86850; 86900; 86901; 93005; 96374; 96375; 96376; J2270; J2550; Q9967

== ENCOUNTER 2024-04-09 13:32 | Outpatient (CLI) | payer OTHER | END 2024-04-09 13:33 | disposition home or self-care (01) | LOC: BICMRI 13:32 | PROVIDERS: ATTEND Podiatrist Foot & Ankle Surgery | DX: M77.41 Metatarsalgia, right foot (principal); M25.571 Pain in right ankle and joints of right foot; M19.071 Primary osteoarthritis, right ankle and foot; S96.911A Strain of unspecified muscle and tendon at ankle and foot level, right foot, initial encounter ==

== ENCOUNTER 2024-09-29 11:18 | Emergency (ER) | payer OTHER ==
[2024-09-29 11:52] LABS: #Basophils Less than 0.03 10x3/uL (0.0-0.2); %Basophils 0.5 % (0.0-1.0); %Eosinophils 2.9 % (0.0-10.0); %Lymphocytes 14.3 % (21.0-51.0); %Monocytes 6.3 % (0.0-10.0); %Neutrophils 75.8 % (42.0-75.0); Hematocrit 35.7 % (36.0-47.0); Hemoglobin 12.4 g/dL (12.0-16.0); Mean Corpuscular HGB CONC 34.7 g/dL (32.0-36.0); Mean Corpuscular Hemoglobin 30.5 pg (27.0-31.0); Mean Corpuscular Volume 87.7 fL (78.0-98.0); Mean Platelet Volume 9.9 fL (7.4-10.4); Platelet Count 184 10x3/uL (130-400); RBC Distribution Width 12.6 % (11.5-14.5); Red Blood Cell (RBC) Count 4.07 mill/uL (4.20-5.40)
[2024-09-29] MEDS ORDERED: Morphine 4 MG/ML VIAL ONE (12:20)
[2024-09-29 12:23] LABS: ALT (SGPT) 28 U/L (8-55); AST (SGOT) 17 U/L (5-34); Albumin 4.4 g/dL (3.4-4.8); Alkaline Phosphatase 115 U/L (40-110); Anion Gap 13 mmol/L (10-20); BUN (Urea Nitrogen) 26 mg/dL (9.8-20.1); Bilirubin, Total 0.3 mg/dL (0.2-1.2); Calc. Creatinine Clearance 0 mL/min (70-130); Calcium 9.5 mg/dL (7.8-10.44); Carbon Dioxide 18 mmol/L (23-31); Chloride 109 mmol/L (98-107); Estimated GFR 40; Globulin 3.2 g/dL (2.4-3.5); Glucose 173 mg/dL (80-115); Potassium 4.4 mmol/L (3.5-5.1); Protein, Total 7.6 g/dL (5.8-8.1); Sodium 136 mmol/L (136-145)
[2024-09-29] MEDS ORDERED: Ondansetron PF 4 MG/2 ML Vial ONE (12:23)
[2024-09-29 13:26] LABS: Bacteria/HPF None Seen HPF (None Seen); Bilirubin Negative (Negative); Blood, Urine 3+ (Negative); CAUTI Indications for Culture Acute Hematuria; Glucose, Urine (Dipstick) Normal (Negative); Ketone, Urine Negative (Negative); Leukocyte 75 Leu/uL (Negative); Nitrite Negative (Negative); Protein, Urine (Dipstick) 200 mg/dL (Neg-Trace); RBC/HPF Greater than 50 HPF (0-3); Specific Gravity, Urine 1.002 (1.002-1.036); Squamous Epithelial None Seen HPF (0-3); Urobilinogen Normal mg/dL (Less than 2); WBC/HPF Greater than 50 HPF (0-3); pH, Urine 6.5 (5.0-9.0)
[2024-09-29 13:29] LABS: Clarity Bloody (Clear)
[2024-09-29 13:30] LABS: Urine Culture Reflex Yes Yes
== END 2024-09-29 18:29 | disposition home or self-care (01) ==
LOC: ERS 11:18
DX: N39.0 Urinary tract infection, site not specified (principal); K59.00 Constipation, unspecified; Z96.652 Presence of left artificial knee joint
CPT/HCPCS: 74177; 80053; 81001; 83605; 85025; 87086; 96374; 96375; J2272; J2405

== ENCOUNTER 2024-11-12 12:44 | Outpatient (CLI) | payer OTHER | END 2024-11-12 12:45 | disposition home or self-care (01) | LOC: BICCT 12:44 | PROVIDERS: ATTEND Urology | DX: N13.5 Crossing vessel and stricture of ureter without hydronephrosis (principal); I77.811 Abdominal aortic ectasia; I70.1 Atherosclerosis of renal artery | CPT/HCPCS: 36415; 74175; 82565 ==

== ENCOUNTER 2024-11-13 09:55 | Day surgery (SDC) | payer OTHER | END 2024-11-13 12:15 | disposition short-term general hospital (02) | LOC: SDC 09:55 → EDSTATUS 10:00 → SDC 12:15 | PROVIDERS: ATTEND Urology | DX: N13.5 Crossing vessel and stricture of ureter without hydronephrosis (principal); Z91.041 Radiographic dye allergy status; Z88.1 Allergy status to other antibiotic agents; Z88.5 Allergy status to narcotic agent; Z88.8 Allergy status to other drugs, medicaments and biological substances ==

== ENCOUNTER 2024-11-13 11:48 | Emergency (ER) | payer OTHER ==
[2024-11-13] MEDS ORDERED: diphenhydrAMINE 50 MG/ML VIAL ONE (12:00)
[2024-11-13] MEDS ORDERED: methylPREDNISolone Sod Succ/PF 125 MG/2 ML VIAL ONE (12:00)
[2024-11-13] MEDS ORDERED: Famotidine/PF 20 mg/2ml Vial ONE (12:01)
[2024-11-13 12:52] LABS: #Basophils Less than 0.03 10x3/uL (0.0-0.2); #Eosinophils Less than 0.03 10x3/uL (0.0-0.7); %Basophils 0.2 % (0.0-1.0); %Lymphocytes 4.7 % (21.0-51.0); %Monocytes 4.1 % (0.0-10.0); %Neutrophils 90.6 % (42.0-75.0); Hematocrit 35.5 % (36.0-47.0); Hemoglobin 12.4 g/dL (12.0-16.0); Mean Corpuscular HGB CONC 34.9 g/dL (32.0-36.0); Mean Corpuscular Hemoglobin 29.9 pg (27.0-31.0); Mean Corpuscular Volume 85.5 fL (78.0-98.0); Mean Platelet Volume 10.2 fL (7.4-10.4); Platelet Count 174 10x3/uL (130-400); RBC Distribution Width 12.5 % (11.5-14.5); Red Blood Cell (RBC) Count 4.15 mill/uL (4.20-5.40)
[2024-11-13 13:10] LABS: INR-International Normal Ratio 1.2; PTT 42.2 sec (22.9-36.1); Prothrombin Time 15.2 sec (12.0-14.7)
[2024-11-13 13:11] LABS: D-Dimer Test 0.52 mcg/mL (0.27-0.43)
[2024-11-13 13:13] LABS: Chloride 111 mmol/L (98-107); Sodium 138 mmol/L (136-145)
[2024-11-13 13:14] LABS: Troponin I 0.011 ng/mL (< 0.028)
[2024-11-13 13:19] LABS: ALT (SGPT) 16 U/L (8-55); AST (SGOT) 13 U/L (5-34); Albumin 4.4 g/dL (3.4-4.8); Alkaline Phosphatase 102 U/L (40-110); Anion Gap 15 mmol/L (10-20); BUN (Urea Nitrogen) 35 mg/dL (9.8-20.1); Bilirubin, Total 0.5 mg/dL (0.2-1.2); Calc. Creatinine Clearance 0 mL/min (70-130); Carbon Dioxide 17 mmol/L (23-31); Estimated GFR 36; Globulin 3.9 g/dL (2.4-3.5); Glucose 101 mg/dL (80-115); Protein, Total 8.3 g/dL (5.8-8.1)
[2024-11-13] MEDS ORDERED: fentaNYL 50 mcg/mL 1 mL Vial ONE (13:30)
== END 2024-11-13 15:37 | disposition home or self-care (01) ==
LOC: ERS 11:48
DX: D69.0 Allergic purpura (principal); I10 Essential (primary) hypertension
CPT/HCPCS: 36415; 80053; 83605; 84484; 85025; 85379; 85384; 85610; 85730; 96374; 96375; J1200; J2919; J3010; J3490

== ENCOUNTER 2024-11-27 14:59 | Emergency (ER) | payer OTHER ==
[2024-11-27] MEDS ORDERED: Morphine 2 MG/ML VIAL ONE (17:21)
[2024-11-27 17:39] LABS: Bilirubin Negative (Negative); Blood, Urine 3+ (Negative); CAUTI Indications for Culture Dysuria,urgency,freq; Clarity Clear (Clear); Glucose, Urine (Dipstick) Normal (Negative); Ketone, Urine Negative (Negative); Leukocyte 250 Leu/uL (Negative); Nitrite Negative (Negative); Protein, Urine (Dipstick) 200 mg/dL (Neg-Trace); Specific Gravity, Urine 1.007 (1.002-1.036); Squamous Epithelial None Seen HPF (0-3); Urobilinogen Normal mg/dL (Less than 2); WBC/HPF 0-3 HPF (0-3); pH, Urine 7.5 (5.0-9.0)
[2024-11-27 17:40] LABS: Bacteria/HPF 1+ HPF (None Seen); RBC/HPF 21-50 HPF (0-3)
[2024-11-27 17:41] LABS: Urine Culture Reflex No No
[2024-11-27 17:42] LABS: #Basophils Less than 0.03 10x3/uL (0.0-0.2); %Basophils 0.2 % (0.0-1.0); %Eosinophils 4.9 % (0.0-10.0); %Monocytes 18.4 % (0.0-10.0); %Neutrophils 66.8 % (42.0-75.0); Hemoglobin 10.9 g/dL (12.0-16.0); Mean Corpuscular HGB CONC 34.1 g/dL (32.0-36.0); Mean Corpuscular Hemoglobin 29.5 pg (27.0-31.0); Mean Corpuscular Volume 86.5 fL (78.0-98.0); Platelet Count 111 10x3/uL (130-400); RBC Distribution Width 12.6 % (11.5-14.5)
[2024-11-27 17:48] LABS: Acetaminophen Less than 10 mcg/mL (Less than 10); Alcohol Less than 10.0 mg/dL (Less than 10); Magnesium 2.2 mg/dL (1.6-2.6); Salicylate Less than 8.0 mg/dL (Less than 8.0)
[2024-11-27 17:50] LABS: ALT (SGPT) 16 U/L (Less than 34); AST (SGOT) 21 U/L (11-34); Albumin 3.9 g/dL (3.1-4.5); Alkaline Phosphatase 84 U/L (40-110); Anion Gap 14 mmol/L (10-20); BUN (Urea Nitrogen) 22 mg/dL (9.8-20.1); Bilirubin, Total 0.3 mg/dL (0.3-1.2); CK (CPK) 69 U/L (29-168); Calc. Creatinine Clearance 0 mL/min (70-130); Calcium 9.2 mg/dL (7.8-10.44); Carbon Dioxide 20 mmol/L (23-31); Chloride 109 mmol/L (98-107); Estimated GFR 32; Glucose 109 mg/dL (80-115); Potassium 4.1 mmol/L (3.5-5.1); Protein, Total 6.9 g/dL (5.8-8.1); Sodium 139 mmol/L (136-145)
[2024-11-27 17:53] LABS: Troponin I 0.013 ng/mL (< 0.028)
[2024-11-27 20:36] LABS: Bacteria/HPF 1+ HPF (None Seen); Bilirubin Negative (Negative); Blood, Urine 2+ (Negative); CAUTI Indications for Culture Dysuria,urgency,freq; Glucose, Urine (Dipstick) Normal (Negative); Ketone, Urine Negative (Negative); Leukocyte 500 Leu/uL (Negative); Nitrite Negative (Negative); Protein, Urine (Dipstick) 50 mg/dL (Neg-Trace); Squamous Epithelial 0-3 HPF (0-3); Urobilinogen Normal mg/dL (Less than 2); WBC/HPF Greater than 50 HPF (0-3)
[2024-11-27 20:37] LABS: Clarity Hazy (Clear)
[2024-11-27 20:38] LABS: Urine Culture Reflex Yes Yes
[2024-11-27 20:41] LABS: Amphetamine Not Detected (NotDetected); Barbiturates Screen Not Detected (NotDetected); Benzodiazepine Screen Not Detected (NotDetected); Cocaine Metabolite Screen Not Detected (NotDetected); Methadone Not Detected (NotDetected); Methamphetamine Not Detected (NotDetected); Opiate Screen Detected (NotDetected); Oxycodone Screen Detected (NotDetected); Phencyclidine (PCP) Not Detected (NotDetected); THC/Cannabinoid Screen Detected (NotDetected); Tricyclic Screen Not Detected (NotDetected)
== END 2024-11-27 21:25 | disposition home or self-care (01) ==
LOC: ERS 14:59
DX: N39.0 Urinary tract infection, site not specified (principal); I12.9 Hypertensive chronic kidney disease with stage 1 through stage 4 chronic kidney disease, or unspecified chronic kidney disease; N18.9 Chronic kidney disease, unspecified; N17.9 Acute kidney failure, unspecified
CPT/HCPCS: 70450; 71045; 80053; 80306; 80307; 81001; 82550; 83605; 83735; 84484; 85025; 87086; 93005; 96374; J2272

== ENCOUNTER 2025-09-10 06:27 | Day surgery (SDC) | payer OTHER ==
[2025-08-31 13:44] VITALS: BMI 20.7
[2025-09-10] MEDS ORDERED: fentaNYL PF 100 MCG/2 ML SYRINGE ONE ×2 (09:29→10:54)
[2025-09-10] MEDS ORDERED: Ondansetron PF 4 MG/2 ML Vial ONE (09:35)
[2025-09-10] MEDS ORDERED: Lidocaine 1% PF 5 ML VIAL ONE (09:35)
[2025-09-10] MEDS ORDERED: LevoFLOXacin D5W 500 mg (100 mL) BAG ONE (09:41)
[2025-09-10] MEDS ORDERED: PROPOFOL 200 MG/20 ML VIAL ONE (09:57)
[2025-09-10] MEDS ORDERED: PHENYLEPHRINE-NS 100 MCG/ML 10 ML SYRINGE ONE (10:13)
[2025-09-10] MEDS ORDERED: Oxybutynin 5 MG TAB ONE (10:54)
== END 2025-09-10 14:45 | disposition home or self-care (01) ==
LOC: SDC 06:27
PROVIDERS: ATTEND Urology
PROC: 0T768DZ Dilation of Right Ureter with Intraluminal Device, Via Natural or Artificial Opening Endoscopic (ICD-10-PCS; principal; 2025-09-10)
DX: N13.5 Crossing vessel and stricture of ureter without hydronephrosis (principal); I13.0 Hypertensive heart and chronic kidney disease with heart failure and stage 1 through stage 4 chronic kidney disease, or unspecified chronic kidney disease; I50.22 Chronic systolic (congestive) heart failure; N18.31 Chronic kidney disease, stage 3a; K74.60 Unspecified cirrhosis of liver; I73.9 Peripheral vascular disease, unspecified; D61.818 Other pancytopenia; Z88.1 Allergy status to other antibiotic agents; Z88.5 Allergy status to narcotic agent; Z88.8 Allergy status to other drugs, medicaments and biological substances; Z91.041 Radiographic dye allergy status; Z91.09 Other allergy status, other than to drugs and biological substances; Z90.49 Acquired absence of other specified parts of digestive tract; Z90.710 Acquired absence of both cervix and uterus; Z79.899 Other long term (current) drug therapy
CPT/HCPCS: 52356; 71045; 74420; C1758; C1769 ×2; C2617; J1100; J1956; J2250; J2704; Q9967; J2405